=== PATIENT | male | born 1940 | race Two or more races ===

== ENCOUNTER 2018-04-27 12:09 | Emergency (ER) | payer OTHER ==
[~2018-04-27] VITALS: Ht 175.3 cm; Wt 54.4 kg
[2018-04-27] MEDS ORDERED: SODIUM CHLORIDE 0.9% 500 ML IVB ONE (12:17)
[2018-04-27 13:12] LABS: Basophils # (auto) 0 uL; Basophils % (auto) 0.5 % (0.0-2.0); Eosinophils # (auto) 0 uL; Lymphocytes # (auto) 0.6 uL
[2018-04-27 13:14] LABS: Eosinophils % (auto) 0.2 % (0.0-7.0); Hematocrit 46.1 % (41.0-53.0); Hemoglobin 16.2 g/dL (13.5-17.5); Lymphocytes % (auto) 8.3 % (10.0-50.0); Mean Corpuscular Hgb Conc. 35.2 g/dL (32.0-36.0); Mean Corpuscular Volume 102.1 fL (80.0-100.0); Monocytes # (auto) 0.6 uL; Nucleated Red Blood Cells % 0.1 %; Platelet Count (auto) 250 10^3/uL (140-450); Red Blood Cells 4.51 10^6/uL (4.5-5.90); Red Cell Distribution Width 13.7 % (11.8-14.3); White Blood Cell 7.3 10^3/uL (4.4-10.8)
[2018-04-27 13:23] LABS: Partial Thromboplastin Time 29.5 sec (23.78-33.04); Prothrombin Time 10.7 sec (9.27-12.13)
[2018-04-27 13:35] LABS: Alanine Aminotransferase 31 U/L (16-61); Albumin 3.7 g/dL (3.4-5.0); Alkaline Phosphatase 72 U/L (45-117); Anion Gap 10 (5-15); Aspartate Aminotransferase 29 U/L (15-37); BUN/Creatinine Ratio 8.8; Bilirubin, Total 1.2 mg/dL (0.2-1.0); Blood Alcohol < 3.0 mg/dL (0-5); Blood Urea Nitrogen 16 mg/dL (7-18); Calcium 8.9 mg/dL (8.5-10.1); Carbon Dioxide 24 mmol/L (21-32); Chloride 100 mmol/L (98-107); GFR African American 47 mL/min; GFR Non-African American 39 mL/min; Glucose 145 mg/dL (74-106); Magnesium 2.2 mg/dL (1.6-2.6); Potassium 3.7 mmol/L (3.5-5.1); Sodium 134 mmol/L (136-145); Total Protein 8.2 g/dL (6.4-8.2)
[2018-04-27 18:54] LABS: Urine Bacteria NONE SEEN /hpf (None Seen); Urine Blood 1+ /uL (Negative); Urine Mucus MANY (None Seen); Urine Specific Gravity 1.036 (1.001-1.035); Urine WBC 8 /hpf (0 - 3)
[2018-04-27 19:26] LABS: Amphetamine Screen, Urine NEGATIVE (NEGATIVE); Barbiturate Scree,Urine NEGATIVE (NEGATIVE); Benzodiazephine Screen, Urine NEGATIVE (NEGATIVE); Cannabinoid Screen, Urine NEGATIVE (NEGATIVE); Cocaine Screen, Urine NEGATIVE (NEGATIVE); Opiate Scree,Urine POSITIVE (NEGATIVE); Phencyclidine Screen, Urine NEGATIVE (NEGATIVE)
[2018-04-27 19:48] VITALS: BP 148/96
== END 2018-04-27 20:51 | disposition home or self-care (01) ==
LOC: ER 12:09
DX: N39.0 Urinary tract infection, site not specified (principal); R11.10 Vomiting, unspecified; E78.5 Hyperlipidemia, unspecified
CPT/HCPCS: 36415; 70450; 71045; 80053; 80307; 80320; 81001; 82140; 83735; 84484; 85025; 85610; 85730; 93005; 94761; 96360; 99285; J7030

== ENCOUNTER 2023-07-16 11:10 | Emergency (ER) | payer OTHER ==
[2023-07-16] MEDS ORDERED: IBUPROFEN 400 MG TAB PO ONE (15:45)
[2023-07-16 17:41] VITALS: BP 120/58; PULSE 65; RESP 18; TEMP 98.1; O2SAT 96
== END 2023-07-16 17:46 | disposition home or self-care (01) ==
LOC: EDBD 11:10 → ER 11:10
DX: M25.511 Pain in right shoulder (principal); E78.5 Hyperlipidemia, unspecified; W18.39XA Other fall on same level, initial encounter; Y93.89 Activity, other specified; Y92.89 Other specified places as the place of occurrence of the external cause; Y99.8 Other external cause status
CPT/HCPCS: 73060

== ENCOUNTER 2024-07-20 13:58 | Inpatient (IN) | payer OTHER ==
[~2024-07-20] VITALS: Ht 167.6 cm; Wt 67.1 kg
[2024-07-20 14:10] VITALS: PULSE 70; RESP 14; O2SAT 99
--- NOTE | 2024-07-20 14:18 | ED.PDOC ---
Altered Mental Status HPI Comments 84-year-old male brought in by EMS presents with a chief complaint of generalized weakness and ALOC s/p dialysis and fall this morning. Per EMS, patient had a witnessed fall this morning prior to dialysis. Patient is only A/O to his name at this time and is lethargic. Patient denies any active pain, nausea, vomiting, or diarrhea. Patient is poor historian at this time. Unknown if patient lost consciousness prior to fall. No other symptoms or modifying factors present at this time. Chief Complaint: ALOC Time Seen by MD: 14:12 Reviewed Notes: Medications, Allergies Allergies: Coded Allergies: NO KNOWN ALLERGIES (Unverified , 04/27/18) Information Source: Emergency Med Personnel Mode of Arrival: EMS Severity: Moderate Timing: Hours Duration: Since onset Prehospital treatment: None Quality: Decreased Alertness, Change in Behavior Past Medical History PAST MEDICAL HISTORY: Cancer, High Lipids Surgical History: Denies all surgeries Family History Family History: Reviewed,noncontributory to illness, Unknown Social History Smoker: Non-Smoker Alcohol: Occasionally Drugs: Denies Drug Use Lives In: Home Constitutional: reports: weakness; denies: chills, diaphoresis, fatigue, fever, malaise, sweats, others EENTM: denies: blurred vision, double vision, ear bleeding, ear discharge, ear drainage, ear pain, ear ringing, eye pain, eye redness, hearing loss, mouth pain, mouth swelling, nasal discharge, nose bleeding, nose congestion, nose pain, photophobia, tearing, throat pain, throat swelling, voice changes, others Respiratory: denies: cough, hemoptysis, orthopnea, SOB at rest, shortness of breath, SOB with excertion, stridor, wheezing, others Cardiovascular: denies: chest pain, dizzy spells, diaphoresis, Dyspnea on exertion, edema, irregular heart beat, left arm pain, lightheadedness, palpitations, PND, syncope, others Gastrointestinal: denies: abdomen distended, abdominal pain, blood streaked bowels, constipated, diarrhea, dysphagia, difficulty swallowing, hematemesis, melena, nausea, poor appetite, poor fluid intake, rectal bleeding, rectal pain, vomiting, others Genitourinary: denies: burning, dysuria, flank pain, frequency, hematuria, incontinence, penile discharge, penile sore, pain, testicle pain, testicle swelling, urgency, others Neurological: denies: dizziness, fainting, headache, left sided numbness, left sided weakness, numbness, paresthesia, pre-existing deficit, right sided numbness, right sided weakness, seizure, speech problems, tingling, tremors, weakness, others Musculoskeletal: denies: back pain, gout, joint pain, joint swelling, muscle pain, muscle stiffness, neck pain, others Integumetry: denies: bruises, change in color, change in hair/nails, dryness, laceration, lesions, lumps, rash, wounds, others Allergic/Immunocompromised: denies: Difficulty Healing, Frequent Infections, H ryne, Itching, others Hematologic/Lymphatic: denies: anemia, blood clots, easy bleeding, easy bruising, swollen glands, others Endocrine: denies: excessive hunger, excessive sweating, excessive thirst, excessive urination, flushing, intolerance to cold, intolerance to heat, unexplained weight gain, unexplained weight loss, others Psychiatric: denies: anxiety, bipolar disorder, depression, hopeless, panic disorder, schizophrenia, sleepless, suicidal, others Unable to Obtain due to: Altered Mental Status All Other Systems: Reviewed and Negative Physical Exam General Appearance: No Apparent Distress, Thin HEENT: Normal ENT Inspection, Pharynx Normal, TMs Normal Neck: Full Range of Motion, Non-Tender, Normal, Normal Inspection Respiratory: Chest Non-Tender, Lungs Clear, No Accessory Muscle Use, No Respiratory Distress, Normal Breath Sounds Cardiovascular: No Edema, No JVD, No Murmur, No Gallop, Normal Peripheral Pulses, Regular Rate/Rhythm Breast Exam: Deferred Gastrointestinal: No Organomegaly, Non Tender, No Pulsatile Mass, Normal Bowel Sounds, Soft Genitalia: Deferred Pelvic: Deferred Rectal: Deferred Extremities: No calf tenderness, Normal capillary refill, Normal inspection, Normal range of motion, Non-tender, No pedal edema Musculoskeletal : Apperance: Normal Neurologic: Alert, sap hana architect II-XII nml as Tested, No Motor Deficits, Normal Affect, Normal Mood, No Sensory Deficits Cerebellar Function: Normal Reflexes: Normal Skin: Dry, Normal Color, Warm Lymphatic: No Adenopathy Was a procedure done? Was a procedure done?: No Differential Diagnosis (ALOC) Differential Diagnosis: Dehydration, Hypoglycemia, CVA, Mass Lesion X-Ray, Labs, Meds, VS Vital Signs Date Time Temp Pulse Resp B/P (MAP) Pulse Ox O2 Delivery O2 Flow Rate FiO2 07/20/24 14:00 97.6 69 16 108/67 (81) 92 Lab Test 07/20/24 14:38 Range/Units White Blood Count 6.1 4.4-10.8 10^3/uL Red Blood Count 3.30 L 4.5-5.90 10^6/uL Hemoglobin 10.8 L 13.5-17.5 g/dL Hematocrit 30.9 L 41.0-53.0 % Mean Corpuscular Volume 93.6 80.0-100.0 fL Mean Corpuscular Hemoglobin 32.8 H 28.0-32.0 pg Mean Corpuscular Hemoglobin Concent 35.0 32.0-36.0 g/dL Red Cell Distribution Width 15.7 H 11.8-14.3 % Platelet Count 322 140-450 10^3/uL Mean Platelet Volume 6.2 L 6.9-10.8 fL Neutrophils (%) (Auto) 71.0 37.0-80.0 % Lymphocytes (%) (Auto) 16.7 10.0-50.0 % Monocytes (%) (Auto) 10.6 0.0-12.0 % Eosinophils (%) (Auto) 1.1 0.0-7.0 % Basophils (%) (Auto) 0.6 0.0-2.0 % Neutrophils # (Auto) 4.4 1.6-8.6 10 ^3/uL Lymphocytes # (Auto) 1.0 0.4-5.4 10 ^3/uL Monocytes # (Auto) 0.6 0-1.3 10 ^3/uL Eosinophils # (Auto) 0.1 0-0.8 10 ^3/uL Basophils # (Auto) 0 0-0.2 10 ^3/uL Nucleated Red Blood Cells 0.2 % Sodium Level Pending Potassium Level Pending Chloride Level Pending Carbon Dioxide Level Pending Anion Gap Pending Blood Urea Nitrogen Pending Creatinine Pending Glomerular Filtration Rate Calc Pending BUN/Creatinine Ratio Pending Serum Glucose Pending Calcium Level Pending Troponin I High Sensitivity Pending Time of 1ST Reevaluation: 14:42 Reevaluation 1ST: Unchanged Patient Education/Counseling: Diagnosis, Treatment, Prognosis Family Education/Counseling: No Family Present Departure 1 Departure Time of Disposition: 15:12 (Patient presenting with altered mental status. CT scan of my evaluation was benign. CBC and BNP were benign. Patient still altered found to have a right lower lobe pneumonia we will cover patient with antibiotics empirically and admit patient for further workup) Impression: Primary Impression: Right lower lobe pneumonia Qualified Codes: J18.9 - Pneumonia, unspecified organism Additional Impression: Altered mental status Qualified Codes: R41.0 - Disorientation, unspecified Disposition: 09 ADMITTED INPATIENT Admit to: Med Surg Condition: Serious Critical Care Note Critical Care Time?: Yes Critical care comment: Altered mental status Authorized and Performed by: Peterson Alcantar MD Total critical care time: Approximately 38 minutes Due to a high probability of clinically significant, life threatening deterioration, the patient required my highest level of preparedness to intervene emergently and I personally spent this critical care time directly and personally managing the patient. This critical care time included obtaining a history; examining the patient; pulse oximetry; ordering and review of studies; arranging urgent treatment with development of a management plan; evaluation of patient's response to treatment; frequent reassessment; and, discussions with other providers. This critical care time was performed to assess and manage the high probability of imminent, life-threatening deterioration that could result in multi-organ failure. It was exclusive of separately billable procedures and treating other patients and teaching time. Please see my other sections and the rest of the note for further information on patient assessment and treatment. Stability Stability form required: No I personally scribed for PETERSON ALCANTAR MD ([email or web address]) on 07/20/24 at 14:18. Electronically submitted by Saran Humphrey ([email or web address]). PETERSON ALCANTAR MD Jul 20, 2024 14:18
--- NOTE | 2024-07-20 14:48 | DVH ---
EXAM: CT HEAD WITHOUT CONTRAST HISTORY: fall, ams COMPARISON: None TECHNIQUE: Axial images of the head were obtained and reformatted in coronal and sagittal planes. All CT scans at this medical facility are performed using dose modulation techniques as appropriate t o a performed exam including the following: Automated exposure control was utilized; adjustment of th e MA and/or KV according to patient size; and use of iterative reconstruction technique. CT Dose: CTDI volume is 53.22 mGy. Dose-length product is 959.65 mGy*cm FINDINGS: There is age concordant generalized parenchymal atrophy. There are patchy hypodense areas in the supr atentorial white matter compatible with chronic microvascular ischemic changes. There is no evidence of acute intracranial hemorrhage, mass, mass effect midline shift. There is no hydrocephalus or extra -axial fluid collection. Berger-white matter differentiation is maintained.. There is partial opacification of the right mastoid air cells. The paranasal sinuses are clear. The calvarium is intact.. IMPRESSION: 1. No acute intracranial process. HS:Y
--- NOTE | 2024-07-20 14:52 | DVH ---
CHEST RADIOGRAPH Indication: fall, ams Technique: Single frontal view of the chest was obtained Comparison: None FINDINGS: Lines and Tubes: Right tunneled hemodialysis catheter. Lungs: Right lower lobe opacity. Pleura: Moderate right pleural effusion. No pneumothorax. Cardiomediastinal contours: Unremarkable Bones: No acute osseous abnormality. IMPRESSION: Moderate right pleural effusion. Right lower lobe opacity.
[2024-07-20 15:04] LABS: Basophils # (auto) 0 10 ^3/uL (0-0.2); Basophils % (auto) 0.6 % (0.0-2.0); Eosinophils # (auto) 0.1 10 ^3/uL (0-0.8); Eosinophils % (auto) 1.1 % (0.0-7.0); Hematocrit 30.9 % (41.0-53.0); Hemoglobin 10.8 g/dL (13.5-17.5); Lymphocytes % (auto) 16.7 % (10.0-50.0); Mean Corpuscular Hemoglobin 32.8 pg (28.0-32.0); Mean Corpuscular Volume 93.6 fL (80.0-100.0); Monocytes # (auto) 0.6 10 ^3/uL (0-1.3); Monocytes % (auto) 10.6 % (0.0-12.0); Neutrophils # (auto) 4.4 10 ^3/uL (1.6-8.6); Nucleated Red Blood Cells % 0.2 %; Platelet Count (auto) 322 10^3/uL (140-450); Red Cell Distribution Width 15.7 % (11.8-14.3); White Blood Cell 6.1 10^3/uL (4.4-10.8)
[2024-07-20 15:10] LABS: Chloride 98 mmol/L (98-107); Potassium 3.8 mmol/L (3.5-5.1); Sodium 137 mmol/L (136-145)
[2024-07-20 15:11] LABS: Anion Gap 8 (5-15); Carbon Dioxide 31 mmol/L (20-31)
[2024-07-20 15:17] LABS: BUN/Creatinine Ratio 3.2 (10.0-20.0); Blood Urea Nitrogen 15 mg/dL (9-23); Glucose 70 mg/dL (74-106)
[2024-07-20] MEDS: AZITHROMYCIN 250 MG TAB PO ONE (15:43)
[2024-07-20] MEDS: CEFEPIME 2GM/50ML NS 50 ML IV ONE (15:46)
[2024-07-20] MEDS ORDERED: MAALOX PLUS or MAALOX 30 ML PO PRN (16:45)
[2024-07-20] MEDS ORDERED: DEXTROSE (50%) 50ML SYRG IV PRN (16:45)
[2024-07-20] MEDS ORDERED: ACETAMINOPHEN 325 MG TAB PO PRN (16:45)
[2024-07-20] MEDS ORDERED: HYDROcodone-ACET 5/325MG TAB PO PRN (16:45)
[2024-07-20] MEDS ORDERED: MORPHINE SULFATE INJ 2 MG/ml SYRG IV PRN (16:45)
[2024-07-20] MEDS ORDERED: DOCUSATE SOD 100 MG CAP PO PRN (16:45)
[2024-07-20] MEDS ORDERED: ONDANSETRON HCL 4 MG/2 ML VIAL IV PRN (16:45)
--- NOTE | 2024-07-20 17:16 | DVHHP2 ---
History of Present Illness Reason for Visit: Weakness History of Present Illness 84 yo with ESRD and HTN came to the ed for complaints shortness of breath general weakness and suspected syncopal episode patient with esrd HD completed 3 times per week T S patient after hd was weak not feeling well on ed evaluation showed signs of effusion and pna with a recommendation of admission and further management Cardiovascular: HTN Pulmonary: Pneumonia Renal/: Chronic renal insuff, Chronic renal failure Review of Systems Constitutional: Yes: Weakness; No: Fever, Chills, Sweats, Malaise, Other Eyes: No: Pain, Vision change, Conjunctivae inflammation, Eyelid inflammation, Other, Redness ENT: No: Ear pain, Ear discharge, Nose pain, Nose discharge, Nose congestion, Mouth pain, Mouth swelling, Throat pain, Throat swelling, Other Respiratory: Cough, Shortness of breath; No: Dry, SOB with excertion, Wheezing, Hemoptysis, Pleuritic Pain, Sputum, Wheezing, Other Cardiovascular: No: Chest Pain, Palpitations, Orthopnea, Paroxysmal Noc. Dyspnea, Edema, Lt Headedness, Other Gastrointestinal: No: Nausea, Vomiting, Abdominal Pain, Diarrhea, Constipation, Melena, Hematochezia, Other Genitourinary: No Dysuria, No Frequency, No Incontinence, No Hematuria, No Retention, No Other Musculoskeletal: No: other, neck pain, shoulder pain, arm pain, back pain, hand pain, leg pain, foot pain Skin: No: Rash, Lesions, Jaundice, Bruising, Other Neurological: No: Weakness, Numbness, Incoordination, Change in speech, Confusion, Seizures, Other Allergies: Coded Allergies: NO KNOWN ALLERGIES (Unverified , 04/27/18) Medications Current Medications Medications Dose Ordered Sig/Zeferino Route Start Time Stop Time Status Last Admin Dose Admin Cefepime HCl 50 ml @ 12.5 mls/hr DAILY@1600 IV 07/21/24 16:00 Azithromycin 500 mg DAILY PO 07/21/24 10:00 UNV Diagnostic Test (Pha) 1 strip IQ4HR 07/20/24 20:00 UNV Insulin Human Regular IQ4HR SC 07/20/24 20:00 UNV Dextrose 50 ml UD PRN IV 07/20/24 16:45 UNV Al Hydrox/Mg Hydrox/Simethicone 30 ml Q6HP PRN PO 07/20/24 16:45 UNV Docusate Sodium 100 mg BIDPRN PRN PO 07/20/24 16:45 UNV Acetaminophen 650 mg Q6HP PRN PO 07/20/24 16:45 Acetaminophen/ Hydrocodone Bitart 1 tab Q4HP PRN PO 07/20/24 16:45 Ondansetron HCl 4 mg Q4HP PRN IV 07/20/24 16:45 UNV Morphine Sulfate 2 mg Q4HPRN PRN IV 07/20/24 16:45 UNV Exam Vital Signs Vital Signs Date Time Temp Pulse Resp B/P (MAP) Pulse Ox O2 Delivery O2 Flow Rate FiO2 07/20/24 16:00 72 16 14 (68) 100 07/20/24 14:10 Nasal Cannula* 2 28 07/20/24 14:10 98.7 98.7 General Appearance: Alert, Oriented X3 HEENT: Atraumatic, PERRLA Respiratory: Clear to auscultation (left sided congestion ), Normal air movement Cardiovascular: Regular rate, Normal S1, Normal S2 Abdominal: Normal bowel sounds Extremities: No clubbing, No cyanosis Skin: No rashes, No breakdown Neuro: Normal gait, Normal speech Psych/Mental Status: Mood NL Labs/Xrays Labs Test 07/20/24 15:34 07/20/24 14:38 Range/Units Troponin I High Sensitivity 15 </=54 ng/L White Blood Count 6.1 4.4-10.8 10^3/uL Red Blood Count 3.30 L 4.5-5.90 10^6/uL Hemoglobin 10.8 L 13.5-17.5 g/dL Hematocrit 30.9 L 41.0-53.0 % Mean Corpuscular Volume 93.6 80.0-100.0 fL Mean Corpuscular Hemoglobin 32.8 H 28.0-32.0 pg Mean Corpuscular Hemoglobin Concent 35.0 32.0-36.0 g/dL Red Cell Distribution Width 15.7 H 11.8-14.3 % Platelet Count 322 140-450 10^3/uL Mean Platelet Volume 6.2 L 6.9-10.8 fL Neutrophils (%) (Auto) 71.0 37.0-80.0 % Lymphocytes (%) (Auto) 16.7 10.0-50.0 % Monocytes (%) (Auto) 10.6 0.0-12.0 % Eosinophils (%) (Auto) 1.1 0.0-7.0 % Basophils (%) (Auto) 0.6 0.0-2.0 % Neutrophils # (Auto) 4.4 1.6-8.6 10 ^3/uL Lymphocytes # (Auto) 1.0 0.4-5.4 10 ^3/uL Monocytes # (Auto) 0.6 0-1.3 10 ^3/uL Eosinophils # (Auto) 0.1 0-0.8 10 ^3/uL Basophils # (Auto) 0 0-0.2 10 ^3/uL Nucleated Red Blood Cells 0.2 % Sodium Level 137 136-145 mmol/L Potassium Level 3.8 3.5-5.1 mmol/L Chloride Level 98 98-107 mmol/L Carbon Dioxide Level 31 20-31 mmol/L Anion Gap 8 5-15 Blood Urea Nitrogen 15 9-23 mg/dL Creatinine 4.64 H 0.700-1.30 mg/dL Glomerular Filtration Rate Calc 12 >90 mL/min BUN/Creatinine Ratio 3.2 L 10.0-20.0 Serum Glucose 70 L 74-106 mg/dL Calcium Level 9.0 8.7-10.4 mg/dL Assessment/Plan Assessment/Plan Admit Med/Surge Pneumonia Shortness of Breath Moderate Pleural Effusion ESRD T Th S HD schedule Suspected fluid overload Possible need for Chest Tube Pulmonary Evaluation Renal for HD management IV abx for pna cefepime PRN Breathing Treatments c/w home meds once confirmed Plan discussed with: Patient My Orders Orders - AGUILA HERNANDEZ MD Procedure Category Date Status Time Azithromycin Tablet PHA 07/21/24 Logged (Zithromax Tablet) 10:00 *Dr. [facility] CONS 07/20/24 Transmitted -[place] 16:37 *Consult CONS 07/20/24 Transmitted / 16:37 Glucose Blood PHA 07/20/24 Logged (Accu-Chek Comfort 20:00 Insulin R (Human) PHA 07/20/24 Logged (Insulin R) 20:00 Dextrose 50% Syringe PHA 07/20/24 Logged 16:45 Admit ADMIT 07/20/24 Transmitted 16:37 Code Status CODE 07/20/24 Transmitted 16:37 Vital Signs YRIS 07/20/24 In Process 16:37 Review Orders With [facility] 07/20/24 In Process Adm. 16:37 Consistent DIET 07/20/24 Transmitted Carb(Ccho)Diabetes Dinner Alum & Mag PHA 07/20/24 Logged Hydrox-Simethicone 16:45 Docusate Sodium PHA 07/20/24 Logged Capsule (Colace 16:45 Acetaminophen Tablet PHA 07/20/24 In Process (Tylenol Tablet) 16:45 Notify Md Of Changes [facility] 07/20/24 In Process From Base 16:37 Advance Directive [facility] 07/20/24 In Process 16:37 Basic Metabolic Panel LAB 07/21/24 Verified 04:00 Complete Blood Count LAB 07/21/24 Verified 04:00 Patient Condition ORDERS 07/20/24 Transmitted 16:37 Allergies [facility] 07/20/24 In Process 16:37 Hydrocodone-Acet PHA 07/20/24 In Process 5/325mg Tab ([place] 16:45 Ondansetron Hcl PHA 07/20/24 Logged (Zofran) 16:45 Morphine Sulfate [facility] 07/20/24 Logged Injection 16:45 Notify Md Of Changes [facility] 07/20/24 In Process From Base 16:37 Oxygen By Nasal RT 07/20/24 Transmitted Cannula 16:37 Cefepime 1gm/ 50ml PHA 07/21/24 In Process (Maxipime 1gm/50ml) 16:00 Problem List: (1) Abnormal pleural fluid (2) Fall with no significant injury (3) Altered mental status (4) Right lower lobe pneumonia Date of Service: Jul 20, 2024 Billing Provider: AGUILA HERNANDEZ MD Common Visit Codes: 66487-HIMXGRB INP/OBS CARE (HIGH) AGUILA HERNANDEZ MD Jul 20, 2024 17:16
[2024-07-20] MEDS ORDERED: IPRATROPIUM BROM 0.5 MG/2.5ML INH SOL NEB PRN ×2 (17:30)
[2024-07-20] MEDS ORDERED: ALBUTEROL SULF 2.5 MG/0.5ML(0.5%) NEB SOLN NEB PRN ×2 (17:30)
[2024-07-20 17:47] VITALS: O2SAT 97
--- NOTE | 2024-07-20 18:23 | DVHINCON2 ---
Date of service: Jul 20, [address] Padilla Reason for Consultation Pleural effusion, Acute hypoxic respiratory failure History of Present Illness 84-year-old man history of ESRD on hemodialysis, hypertension who presented with shortness of breath and generalized weakness. Patient states he has been inherent with hemodialysis. He was feeling weak. He was not feeling like himself. He had a chest x-ray performed that demonstrated a moderate right pleural effusion and right lower lobe consolidation. Pulmonary consultation is called for evaluation of pleural effusion and possible pneumonia, acute hypoxic respiratory failure. Review of systems: 14 point review of systems is negative unless otherwise noted above. Past medical history: Cancer, hyperlipidemia , obesity with a BMI of 32.2 Surgical history: Right tunneled hemodialysis catheter. Medications: Reviewed Allergies: No known drug allergies. Family history: No family history of premature CAD. No family history of lung disease. Social history: Nonsmoker. Social alcohol use. No illicit drug use. Lives at home. Allergies: Coded Allergies: NO KNOWN ALLERGIES (Unverified , 04/27/18) Current Medications Current Medications Medications (Trade) Dose Ordered Sig/Zeferino Route PRN Reason Start Time Stop Time Status Last Admin Cefepime HCl 50 ml @ 12.5 mls/hr DAILY@1600 IV 07/21/24 16:00 Azithromycin (Zithromax Tablet) 500 mg DAILY PO 07/21/24 10:00 Diagnostic Test (Pha) (Accu-Chek Comfort Curve T) 1 strip IQ4HR 07/20/24 20:00 Insulin Human Regular (InsuLIN R) IQ4HR SC 07/20/24 20:00 Dextrose 50 ml UD PRN IV Blood Sugar LESS THAN 60 07/20/24 16:45 Al Hydrox/Mg Hydrox/Simethicone (Maalox Plus) 30 ml Q6HP PRN PO FOR STOMACH DISTRESS 07/20/24 16:45 Docusate Sodium (Colace Capsule) 100 mg BIDPRN PRN PO FOR CONSTIPATION 07/20/24 16:45 Acetaminophen (Tylenol Tablet) 650 mg Q6HP PRN PO PAIN SCALE 1-3 OR TEMP>100.4 07/20/24 16:45 Acetaminophen/ Hydrocodone Bitart ([place] 5/325MG Tab) 1 tab Q4HP PRN PO MODERATE PAIN (4-6 PAIN SCALE) 07/20/24 16:45 Ondansetron HCl (Zofran) 4 mg Q4HP PRN IV NAUSEA / VOMITING 07/20/24 16:45 Morphine Sulfate 2 mg Q4HPRN PRN IV SEVERE PAIN (7-10 PAIN SCALE) 07/20/24 16:45 Albuterol (Ventolin Medneb) 2.5 mg Q4HWA PRN NEB SHORTNESS OF BREATH 07/20/24 17:30 07/20/24 17:36 DC Ipratropium [place] (Atrovent Medneb) 0.5 mg Q4HWA PRN NEB SHORTNESS OF BREATH 07/20/24 17:30 07/20/24 17:36 DC Albuterol (Ventolin Medneb) 2.5 mg Q4HPRN PRN NEB SHORTNESS OF BREATH 07/20/24 17:30 Ipratropium [place] (Atrovent Medneb) 0.5 mg Q4HPRN PRN NEB SHORTNESS OF BREATH 07/20/24 17:30 Vital Signs Vital Signs Date Time Temp Pulse Resp B/P (MAP) Pulse Ox O2 Delivery O2 Flow Rate FiO2 07/20/24 18:00 79 14 131/59 (83) 97 07/20/24 17:47 Nasal Cannula 2.0 07/20/24 17:47 28 07/20/24 14:10 98.7 98.7 Physical Exam Gen.: Patient lying in bed in no apparent distress. On supplemental oxygen. Head: Normocephalic, atraumatic Eyes: EOMI/PERRLA. Ears: Normal hearing. Normal anatomy. Neck/trachea: Trachea midline, supple. Nose: Normal external anatomy. Mouth: Moist mucous membranes. Chest: Right subclavian tunneled catheter in place. Decreased air entry bilaterally. No wheezing or rhonchi. Dullness to percussion in the mid to lower right lung field. Cardio vascular: Positive S1, positive S2. Regular rate and rhythm. Abdomen: Positive bowel sounds in all 4 quadrants. Soft, non-tender, non- distended. : Deferred. Rectal: Deferred Skin: Warm, dry. Extremities: 2+ radial pulses bilaterally. No lower extremity edema. Neuro: Awake, alert, oriented x3. No gross motor or sensory deficits. Cranial nerves II through XII intact. Gait not assessed. Labs/Diagnostic Data Labs Test 07/20/24 15:34 07/20/24 14:38 Range/Units Troponin I High Sensitivity 15 </=54 ng/L White Blood Count 6.1 4.4-10.8 10^3/uL Red Blood Count 3.30 L 4.5-5.90 10^6/uL Hemoglobin 10.8 L 13.5-17.5 g/dL Hematocrit 30.9 L 41.0-53.0 % Mean Corpuscular Volume 93.6 80.0-100.0 fL Mean Corpuscular Hemoglobin 32.8 H 28.0-32.0 pg Mean Corpuscular Hemoglobin Concent 35.0 32.0-36.0 g/dL Red Cell Distribution Width 15.7 H 11.8-14.3 % Platelet Count 322 140-450 10^3/uL Mean Platelet Volume 6.2 L 6.9-10.8 fL Neutrophils (%) (Auto) 71.0 37.0-80.0 % Lymphocytes (%) (Auto) 16.7 10.0-50.0 % Monocytes (%) (Auto) 10.6 0.0-12.0 % Eosinophils (%) (Auto) 1.1 0.0-7.0 % Basophils (%) (Auto) 0.6 0.0-2.0 % Neutrophils # (Auto) 4.4 1.6-8.6 10 ^3/uL Lymphocytes # (Auto) 1.0 0.4-5.4 10 ^3/uL Monocytes # (Auto) 0.6 0-1.3 10 ^3/uL Eosinophils # (Auto) 0.1 0-0.8 10 ^3/uL Basophils # (Auto) 0 0-0.2 10 ^3/uL Nucleated Red Blood Cells 0.2 % Sodium Level 137 136-145 mmol/L Potassium Level 3.8 3.5-5.1 mmol/L Chloride Level 98 98-107 mmol/L Carbon Dioxide Level 31 20-31 mmol/L Anion Gap 8 5-15 Blood Urea Nitrogen 15 9-23 mg/dL Creatinine 4.64 H 0.700-1.30 mg/dL Glomerular Filtration Rate Calc 12 >90 mL/min BUN/Creatinine Ratio 3.2 L 10.0-20.0 Serum Glucose 70 L 74-106 mg/dL Calcium Level 9.0 8.7-10.4 mg/dL Assessment Impression: Acute hypoxic respiratory failure Right lower lobe pneumonia, likely Gram-negative Pleural effusion Atelectasis Status post fall with no significant injury Obesity with a BMI of 32.2 End-stage renal disease on hemodialysis Plan: Chest x-ray imaging report reviewed. Possible right pleural effusion. Pulmonary edema. Atelectasis, compressive. Obtain ultrasound for evaluation of right pleural effusion. To see if amenable for thoracentesis. Supplemental oxygen 2 liters/minute via nasal cannula. Keep O2 saturation above 92%. Bronchodilators PRN Antibiotics , cefepime Send sputum for Gram stain and culture if able to produce. ESRD, on hemodialysis Hemodialysis per nephrology Monitor renal function Monitor electrolytes. Supplement as necessary Monitor ins and outs Accu-Cheks, insulin sliding scale DVT prophylaxis Prognosis: Guarded given multiple comorbidities. Rest of plan per hospitalist and other consultants. Thank you Dr. Padilla for allowing me to participate in this patient's care. Further recommendations will depend on patient's clinical course. Please do not hesitate to contact me if you have any questions or concerns. This medical document was created using an electronic medical record system with [employer] dictation system. Although this document has been carefully reviewed, there may still be some phonetic and typographical errors. These areas are purely typographical due to imperfections of the software programs, and do not reflect any compromise in the patient's medical care. Plan discussed with: Patient, Other (CIARRA Segal, , ) ROD LOPEZ MD Jul 20, 2024 18:23
--- NOTE | 2024-07-20 18:47 | DVH ---
Bilateral Chest Sonogram Clinical history: Evaluation for amount of right pleural effusion for thora Technique: Limited sonographic evaluation of the right and left chest was performed. Findings/Impression: Moderate right pleural effusion.
[2024-07-20 19:45] VITALS: BP 131/59; PULSE 79; RESP 16; TEMP 98.7; O2SAT 97
[2024-07-20 20:17] VITALS: PULSE 96; RESP 20; O2SAT 98
--- NOTE | 2024-07-20 20:25 | ECG ---
[facility] Test Date: 2024-07-20 Test Time: 14:16:23 Pat Name: SADIE BACK Department: ER Room: 0290 Gender: M Dancing Instructor: LIYA : 1940 Requested By: PETERSON DOSHI Order Number: [id number] Reading MD: Arcenio Garcia Measurements Intervals [place] Rate: 76 P: 0 CT: 0 QRS: 12 QRSD: 110 T: 206 QT: 480 QTc: 540 Interpretive Statements Atrial fibrillation Ventricular premature complex Repol abnrm suggests ischemia, anterolateral Prolonged QT interval Baseline wander in lead(s) II,III,aVF Electronically Signed On 07-23-2024 17:27:15 PST by Arcenio Garcia Please click the below link to view image of tracing.
[2024-07-20] MEDS: ACCU-CHEK COMFORT CURVE STRIP VI SCH (20:51)
[2024-07-20] MEDS: InsuLIN REG 1unit/0.01ml Soln (100units/ml) SC SCH (20:51)
[2024-07-20 22:00] VITALS: BP 138/57; PULSE 82; RESP 19; TEMP 97.6; O2SAT 92
[2024-07-20 22:16] VITALS: BP 99/66; PULSE 84; RESP 19; TEMP 97.6; O2SAT 92
[2024-07-21] VITALS (10 sets, daily range): BP systolic 107–152; BP diastolic 42–77; PULSE 65–93; RESP 16–19; TEMP 97.6–98.6; O2SAT 93–96
[2024-07-21 06:47] LABS: Basophils # (auto) 0 10 ^3/uL (0-0.2); Basophils % (auto) 0.2 % (0.0-2.0); Eosinophils # (auto) 0 10 ^3/uL (0-0.8); Eosinophils % (auto) 0.6 % (0.0-7.0); Hematocrit 31.1 % (41.0-53.0); Hemoglobin 10.6 g/dL (13.5-17.5); Lymphocytes # (auto) 0.6 10 ^3/uL (0.4-5.4); Lymphocytes % (auto) 8.1 % (10.0-50.0); Mean Corpuscular Hemoglobin 32.2 pg (28.0-32.0); Mean Corpuscular Hgb Conc. 34.2 g/dL (32.0-36.0); Mean Corpuscular Volume 94.2 fL (80.0-100.0); Monocytes # (auto) 0.6 10 ^3/uL (0-1.3); Neutrophils # (auto) 6.1 10 ^3/uL (1.6-8.6); Neutrophils % (auto) 83.1 % (37.0-80.0); Platelet Count (auto) 328 10^3/uL (140-450); Red Cell Distribution Width 15.6 % (11.8-14.3); White Blood Cell 7.4 10^3/uL (4.4-10.8)
[2024-07-21 06:55] LABS: Anion Gap 9 (5-15); Carbon Dioxide 31 mmol/L (20-31); Chloride 97 mmol/L (98-107); Potassium 3.9 mmol/L (3.5-5.1); Sodium 137 mmol/L (136-145)
[2024-07-21 06:57] LABS: Calcium 9.3 mg/dL (8.7-10.4)
[2024-07-21 07:01] LABS: BUN/Creatinine Ratio 3.8 (10.0-20.0); Blood Urea Nitrogen 23 mg/dL (9-23); Glucose 99 mg/dL (74-106)
[2024-07-21] MEDS ORDERED: AZITHROMYCIN 250 MG TAB PO SCH (10:00)
--- NOTE | 2024-07-21 12:28 | DVHINCON2 ---
Date of service: Jul 21, [address] Padilla. History of Present Illness 84-year-old patient with significant history of end-stage renal disease on hemodialysis TTS with low dialysis yesterday, hypertension presented to the hospital because of generalized weakness, shortness of breath and intermittent confusion. Patient endorses a fall without head injury and loss of consciousness he is uncertain as per patient. Patient denies any chest pain orthopnea PND denies fever chills cough or abdominal pain or nausea and vomiting or diarrhea. Evaluation in the emergency room revealed chest x-ray with right lower lobe opacity and pleural effusion. CT head negative for acute CVA. Labs consistent with end-stage renal disease status and normal kalemia. Past Medical History End-stage renal disease, hypertension Past Surgical History Hemodialysis access creation Allergies: Coded Allergies: NO KNOWN ALLERGIES (Unverified , 04/27/18) Home Meds Unable to Obtain Active Prescriptions or Reported Meds Current Medications Current Medications Medications (Trade) Dose Ordered Sig/Zeferino Route PRN Reason Start Time Stop Time Status Last Admin Cefepime HCl 50 ml @ 12.5 mls/hr DAILY@1600 IV 07/21/24 16:00 Azithromycin (Zithromax Tablet) 500 mg DAILY PO 07/21/24 10:00 07/21/24 10:51 DC Diagnostic Test (Pha) (Accu-Chek Comfort Curve T) 1 strip IQ4HR 07/20/24 20:00 07/21/24 08:00 Insulin Human Regular (InsuLIN R) IQ4HR SC 07/20/24 20:00 Dextrose 50 ml UD PRN IV Blood Sugar LESS THAN 60 07/20/24 16:45 Al Hydrox/Mg Hydrox/Simethicone (Maalox Plus) 30 ml Q6HP PRN PO FOR STOMACH DISTRESS 07/20/24 16:45 Docusate Sodium (Colace Capsule) 100 mg BIDPRN PRN PO FOR CONSTIPATION 07/20/24 16:45 Acetaminophen (Tylenol Tablet) 650 mg Q6HP PRN PO PAIN SCALE 1-3 OR TEMP>100.4 07/20/24 16:45 Acetaminophen/ Hydrocodone Bitart ([place] 5/325MG Tab) 1 tab Q4HP PRN PO MODERATE PAIN (4-6 PAIN SCALE) 07/20/24 16:45 Ondansetron HCl (Zofran) 4 mg Q4HP PRN IV NAUSEA / VOMITING 07/20/24 16:45 Morphine Sulfate 2 mg Q4HPRN PRN IV SEVERE PAIN (7-10 PAIN SCALE) 07/20/24 16:45 Albuterol (Ventolin Medneb) 2.5 mg Q4HWA PRN NEB SHORTNESS OF BREATH 07/20/24 17:30 07/20/24 17:36 DC Ipratropium [place] (Atrovent Medneb) 0.5 mg Q4HWA PRN NEB SHORTNESS OF BREATH 07/20/24 17:30 07/20/24 17:36 DC Albuterol (Ventolin Medneb) 2.5 mg Q4HPRN PRN NEB SHORTNESS OF BREATH 07/20/24 17:30 Ipratropium [place] (Atrovent Medneb) 0.5 mg Q4HPRN PRN NEB SHORTNESS OF BREATH 07/20/24 17:30 Azithromycin (Zithromax Tablet) 500 mg DAILY PO 07/22/24 10:00 Family History: Patient reports no known family medical history. Family History Patient is poor historian does not know his family history. Social History He lives with his denies smoking alcohol or drug abuse Review of Systems HEENT: Oral mucosa dry Neck no JVD Cardiovascular: Denies for chest pain denies orthopnea or PND Respiratory: Denies cough or shortness of breath Gastrointestinal: Denies for nausea vomiting Musculoskeletal: Denies myalgias Neurological: Denies focal weakness Dermatological: Denies any rash The rest of the review of systems were reviewed pertinent positives and pertinent negatives are as per HPI up to 12 points review of systems H&P Exam Vital Signs/I&O Vital Sign Date Time Temp Pulse Resp B/P (MAP) Pulse Ox O2 Delivery O2 Flow Rate FiO2 07/21/24 10:07 96 Nasal Cannula* 2 28 07/21/24 09:00 98.1 87 18 129/53 (78) 98.1 Physical Exam HEENT: No evidence of JVD, no oral ulcers. Pulmonary: Lungs are clear on auscultation bilaterally Cardiovascular S1-S2, no S3 or S4 Abdomen: Bowel sounds positive, soft no rebound tenderness Skin: No rash Neurological: Alert, oriented, no focal weakness Right chest tunneled HD line with no complication Labs/Diagnostic Data Labs/Diagnostic Data Laboratory Tests Test 07/21/24 11:45 07/21/24 07:52 07/21/24 05:50 07/21/24 04:25 Range/Units POC Glucose 85 86 110 H 70-106 mg/dl White Blood Count 7.4 4.4-10.8 10^3/uL Red Blood Count 3.30 L 4.5-5.90 10^6/uL Hemoglobin 10.6 L 13.5-17.5 g/dL Hematocrit 31.1 L 41.0-53.0 % Mean Corpuscular Volume 94.2 80.0-100.0 fL Mean Corpuscular Hemoglobin 32.2 H 28.0-32.0 pg Mean Corpuscular Hemoglobin Concent 34.2 32.0-36.0 g/dL Red Cell Distribution Width 15.6 H 11.8-14.3 % Platelet Count 328 140-450 10^3/uL Mean Platelet Volume 6.3 L 6.9-10.8 fL Neutrophils (%) (Auto) 83.1 H 37.0-80.0 % Lymphocytes (%) (Auto) 8.1 L 10.0-50.0 % Monocytes (%) (Auto) 8.0 0.0-12.0 % Eosinophils (%) (Auto) 0.6 0.0-7.0 % Basophils (%) (Auto) 0.2 0.0-2.0 % Neutrophils # (Auto) 6.1 1.6-8.6 10 ^3/uL Lymphocytes # (Auto) 0.6 0.4-5.4 10 ^3/uL Monocytes # (Auto) 0.6 0-1.3 10 ^3/uL Eosinophils # (Auto) 0 0-0.8 10 ^3/uL Basophils # (Auto) 0 0-0.2 10 ^3/uL Nucleated Red Blood Cells 0.0 % Sodium Level 137 136-145 mmol/L Potassium Level 3.9 3.5-5.1 mmol/L Chloride Level 97 L 98-107 mmol/L Carbon Dioxide Level 31 20-31 mmol/L Anion Gap 9 5-15 Blood Urea Nitrogen 23 9-23 mg/dL Creatinine 5.99 H 0.700-1.30 mg/dL Glomerular Filtration Rate Calc 9 >90 mL/min BUN/Creatinine Ratio 3.8 L 10.0-20.0 Serum Glucose 99 74-106 mg/dL Calcium Level 9.3 8.7-10.4 mg/dL Test 07/21/24 00:10 07/20/24 20:49 07/20/24 18:09 07/20/24 15:34 Range/Units POC Glucose 132 H 98 70-106 mg/dl Lactic Acid Level 0.8 0.4-2.0 mmol/L Troponin I High Sensitivity 15 </=54 ng/L Test 07/20/24 14:38 Range/Units White Blood Count 6.1 4.4-10.8 10^3/uL Red Blood Count 3.30 L 4.5-5.90 10^6/uL Hemoglobin 10.8 L 13.5-17.5 g/dL Hematocrit 30.9 L 41.0-53.0 % Mean Corpuscular Volume 93.6 80.0-100.0 fL Mean Corpuscular Hemoglobin 32.8 H 28.0-32.0 pg Mean Corpuscular Hemoglobin Concent 35.0 32.0-36.0 g/dL Red Cell Distribution Width 15.7 H 11.8-14.3 % Platelet Count 322 140-450 10^3/uL Mean Platelet Volume 6.2 L 6.9-10.8 fL Neutrophils (%) (Auto) 71.0 37.0-80.0 % Lymphocytes (%) (Auto) 16.7 10.0-50.0 % Monocytes (%) (Auto) 10.6 0.0-12.0 % Eosinophils (%) (Auto) 1.1 0.0-7.0 % Basophils (%) (Auto) 0.6 0.0-2.0 % Neutrophils # (Auto) 4.4 1.6-8.6 10 ^3/uL Lymphocytes # (Auto) 1.0 0.4-5.4 10 ^3/uL Monocytes # (Auto) 0.6 0-1.3 10 ^3/uL Eosinophils # (Auto) 0.1 0-0.8 10 ^3/uL Basophils # (Auto) 0 0-0.2 10 ^3/uL Nucleated Red Blood Cells 0.2 % Sodium Level 137 136-145 mmol/L Potassium Level 3.8 3.5-5.1 mmol/L Chloride Level 98 98-107 mmol/L Carbon Dioxide Level 31 20-31 mmol/L Anion Gap 8 5-15 Blood Urea Nitrogen 15 9-23 mg/dL Creatinine 4.64 H 0.700-1.30 mg/dL Glomerular Filtration Rate Calc 12 >90 mL/min BUN/Creatinine Ratio 3.2 L 10.0-20.0 Serum Glucose 70 L 74-106 mg/dL Calcium Level 9.0 8.7-10.4 mg/dL Troponin I High Sensitivity 15 </=54 ng/L Chest x-ray right-sided pleural effusion and right lobe opacity CT head no acute intracranial process Assessment Assessment: 1. End-stage renal disease on hemodialysis TTS 2. Concern for right lower lobe pneumonia 3. Moderate right-sided pleural effusion 4. Fall 5. Syncope 6. Anemia 7. Hypertension Recommendations: Hemodialysis TTS. Cardiac consult, 2D echo Monitored on telemetry No indication for dialysis today Jeremías for goal hemoglobin 10-11 PTOT evaluation Fluid restrict less than 1 L per day Thank you very much for allowing us to participate in the care of this patient. Plan discussed with: Patient AYAN HUGGINS MD Jul 21, 2024 12:28
[2024-07-21] MEDS ORDERED: DOCUSATE SOD 100 MG CAP PO PRN (15:30)
[2024-07-21] MEDS ORDERED: HYDROcodone-ACET 5/325MG TAB PO PRN (15:30)
[2024-07-21] MEDS ORDERED: ONDANSETRON HCL 4 MG/2 ML VIAL IV PRN (15:30)
[2024-07-21] MEDS ORDERED: MORPHINE SULFATE INJ 2 MG/ml SYRG IV PRN (15:30)
[2024-07-21] MEDS ORDERED: ACETAMINOPHEN 325 MG TAB PO PRN (15:30)
[2024-07-21] MEDS ORDERED: hydrALAZINE HCL 10 MG TAB PO PRN (15:30)
[2024-07-21] MEDS ORDERED: IPRATROPIUM BROM 0.5 MG/2.5ML INH SOL NEB PRN (15:30)
[2024-07-21] MEDS ORDERED: DEXTROSE (50%) 50ML SYRG IV PRN (15:30)
[2024-07-21] MEDS ORDERED: MAALOX PLUS or MAALOX 30 ML PO PRN (15:30)
[2024-07-21] MEDS ORDERED: ALBUTEROL SULF 2.5 MG/0.5ML(0.5%) NEB SOLN NEB PRN (15:30)
[2024-07-21] MEDS: CEFEPIME 1GM/ 50ML 50 ML IV SCH (15:49)
[2024-07-21] MEDS ORDERED: CEFEPIME 1GM/ 50ML 50 ML IV SCH (16:00)
[2024-07-21] MEDS: ACCU-CHEK COMFORT CURVE STRIP VI SCH (16:05)
[2024-07-21] MEDS: InsuLIN REG 1unit/0.01ml Soln (100units/ml) SC SCH (16:07)
--- NOTE | 2024-07-21 16:54 | DVHPNRES ---
Progress Note Date Seen: Jul 21, 2024 Resident Creating Document: SUJEYViktorADITYA HoangALLISON RESIDENT Medical Necessity Reason Pt with a Central, PICC or Fol: No Subjective Review of Systems Patient is a 84-year-old male with a past medical history of end-stage renal disease on hemodialysis Friday, , Friday, hypertension, BPH presented to the ED with a chief complaint of shortness of breath and generalized weakness. Patient reported that he started feeling short of breath since 3-4 days ago with slowly worsened and he was feeling weak and dizzy and had a fall without loss of consciousness and with no head injury. Patient denied chest pain, orthopnea, PND, fever, chills, abdominal pain, nausea, vomiting. Chest x- ray showed right-sided moderate pleural effusion, very minimal left-sided pleural effusion. Chest ultrasound showed moderate right-sided pleural effusion. Past medical history: As per HPI Past surgical history: Right tunneled hemodialysis catheter Social history: Lives with and denies smoking, alcohol, drug use Home medications: Simvastatin, finasteride, tamsulosin, sevelamer, temazepam Review of systems Patient seen and examined at the bedside. Patient is alert and oriented x 2, oriented to person and time but disoriented to place. Patient sitting in bed with oxygen support 2 liter/minute reports no shortness of breath on oxygen support but on walking to the restroom he feels slightly out of breath. Patient denies chest pain, nausea, vomiting, chills, fever, change in bowel movement. Patient's vitals at the time of examination stable. Objective vital signs Vital Sign Date Time Temp Pulse Resp B/P (MAP) Pulse Ox O2 Delivery O2 Flow Rate FiO2 07/21/24 13:00 97.6 72 18 152/64 (93) 93 97.6 07/21/24 10:07 Nasal Cannula* 2 28 medications Current Medications Medications Dose Ordered Sig/Zeferino Route Start Time Stop Time Status Last Admin Dose Admin Hydralazine HCl 10 mg Q6HP PRN PO 07/21/24 15:30 Cefepime HCl 50 ml @ 12.5 mls/hr DAILY@1600 IV 07/21/24 16:00 07/21/24 15:49 12.5 MLS/HR Diagnostic Test (Pha) 1 strip IQ4HR 07/21/24 16:00 07/21/24 16:05 1 STRIP Insulin Human Regular IQ4HR SC 07/21/24 16:00 07/21/24 16:07 2 UNITS Dextrose 50 ml UD PRN IV 07/21/24 15:30 Al Hydrox/Mg Hydrox/Simethicone 30 ml Q6HP PRN PO 07/21/24 15:30 Docusate Sodium 100 mg BIDPRN PRN PO 07/21/24 15:30 Acetaminophen 650 mg Q6HP PRN PO 07/21/24 15:30 Acetaminophen/ Hydrocodone Bitart 1 tab Q4HP PRN PO 07/21/24 15:30 Ondansetron HCl 4 mg Q4HP PRN IV 07/21/24 15:30 Morphine Sulfate 2 mg Q4HPRN PRN IV 07/21/24 15:30 Albuterol 2.5 mg Q4HPRN PRN NEB 07/21/24 15:30 Ipratropium [place] 0.5 mg Q4HPRN PRN NEB 07/21/24 15:30 Azithromycin 500 mg DAILY PO 07/22/24 10:00 Examination Physical Examination Gen - no pallor, no icterus, no cyanosis, no clubbing, no LAD, no edema . Skin - Patients skin is warm and dry.. HEENT - normocephalic, atraumatic, moist mucous membranes. Right tunneled hemodialysis catheter. Neck - full ROM, no LAD, no JVD. Pulmonary - breath sounds absent on the right lower side, vesicular breath sounds heard in the left lung and in the right upper lobe. cardiovascular - normal S1,S2 heard. no murmurs heard. peripheral pulses normal radial 2+, pedal 2+. capillary refill normal <2 secs. GI - soft abdomen without tenderness to palpation . no hepatospleenomegaly. Bowel sounds normoactive Neurological - Patient is A/O X 2 . Bilateral upper extremity strength 4/5, bilateral lower extremity strength 4/5, no facial droop, normal speech, no tremor, no sensory deficiets. laboratory and microbiology Laboratory Tests 07/21/24 05:50 Test 07/21/24 05:50 Range/Units Serum Glucose 99 74-106 mg/dL Problem List/Assessment/Plan Problem List/Assessment/Plan Assessment and plan # Acute hypoxic respiratory failure likely due to ?community-acquired pneumonia ? Pleural effusion -On oxygen at 2 liters/minute via nasal cannula -albuterol and ipratropium nebulizer p.r.n. # right pleural effusion ? Fluid overload due to ESRD ? d/t pneumonia ? Malignant - moderate right-sided pleural effusion on chest ultrasound and chest x-ray - thoracocentesis done at bedside under supervision of Dr. Cazares with removal of about 1850 mL of serosanguineous fluid - sample sent for cytology, fluid LDH, protein, food PH - chest x-ray status post thoracocentesis shows improved right pleural effusion # ?community-acquired pneumonia likely due to Gram +/-bacteria - patient on cefepime 1 g IV daily and azithromycin 500 mg p.o. daily - on oxygen support # end-stage renal disease - Serum creatinine 5.99 - patient had a right tunneled hemodialysis catheter with hemodialysis on Friday, , Friday - nephrology consulted - hemodialysis to be done tomorrow 07/22/2024 - monitor electrolytes - strict I&Os - fluid restriction 1 L per day Goals of care discussed with the patient for over 25 minutes. Patient's [id number] joint was trying to be called but did not respond. Full code Plan discussed with Dr. Arteaga Plan discussed with: Patient My Orders My Orders Orders - RON MULLEN Procedure Category Date Status Time Hydralazine Hcl PHA 07/21/24 In Process Tablet (Apresoline 15:30 Date of Service: Jul 21, 2024 Billing Provider: REBEL FAITH MD Common Visit Codes: [id number] INP/OBS CARE(HIGH) RON MULLEN RESIDENT Jul 21, 2024 16:54 REBEL FAITH MD Jul 21, 2024 22:42
--- NOTE | 2024-07-21 18:49 | DVHNC2 ---
Procedure - Ultrasound-guided thoracentesis procedure note: Physician: Dr Sommer Cazares Assisted: Jhajj Date: 07/21/24 Time: 1848 Consent: Consent was obtained from patient prior to procedure. Indication, risks, and benefits were explained at length. Procedure summary: A time out was performed and a chest x-ray was reviewed prior to procedure. The appropriate site was confirmed and marked. My hands were washed immediately prior to the procedure, I wore a surgical cap, mask with protective eyewear, sterile gown and sterile gloves throughout the procedure. The patient was prepped and draped in a sterile manner using chlorhexidine scrub after the appropriate level was percussed and confirmed by ultrasound. 1% lidocaine was used to anesthetize the skin, subcutaneous tissue, superior aspect of the rib periosteum and parietal pleura. A finder needle was then introduced over the superior aspect of the rib to locate the pleural fluid; yellow fluid was aspirated. Thoracentesis needle was then introduced through the skin incision into the pleural space using negative aspiration pressure. The thoracentesis catheter was then threaded without difficulty. 1850 mL's of yellow colored fluid were removed without difficulty. The catheter was then removed. No immediate complications were noted during the procedure. A postprocedure chest x-ray is pending at the time of this note. The pleural fluid will be sent for cultures and cytology. Estimated blood loss is less than 5 mL's. CPT: 47170 ROD CAZARES MD Jul 21, 2024 18:49
--- NOTE | 2024-07-21 18:56 | DVH ---
EXAM: XY CHEST XRAY 1 VIEW TECHNIQUE: Single frontal chest radiograph CLINICAL HISTORY: s/p right thora COMPARISON: XY CHEST PORTABLE on DOS: 07/20/24 Findings/Impression: Frontal chest radiograph demonstrates no acute osseous or superficial soft tissue abnormalities. Tunneled right sided HD catheter terminates near the superior cavoatrial junction. The trachea is midline. The cardiac silhouette and mediastinum are within normal limits. Small right pleural effusion with compressive atelectasis, improved from prior. A superimposed infec tious process is not excluded. No pneumothorax.
[2024-07-21 20:10] LABS: Body Fluid Polymorphonuclear 16 % (0-25); Body Fluid Red Blood Cells 6865 CUMM (0-2000); Body Fluid White Blood Cells 1385 CUMM (0-200)
[2024-07-21] MEDS: EPOETIN ALFA-EPBX 4,000 UNIT/ML VIAL SC ONE (21:00)
--- NOTE | 2024-07-21 21:26 | DVHINCON2 ---
Date of service: Jul 21, 2024 History of Present Illness 84-year-old man history of ESRD on hemodialysis, hypertension who presented with shortness of breath and generalized weakness. Patient states he has been inherent with hemodialysis. He was feeling weak. He was not feeling like himself. He had a chest x-ray performed that demonstrated a moderate right pleural effusion and right lower lobe consolidation. Pulmonary consultation is called for evaluation of pleural effusion and possible pneumonia, acute hypoxic respiratory failure. Review of systems: 14 point review of systems is negative unless otherwise noted above. Past medical history: Cancer, hyperlipidemia , obesity with a BMI of 32.2 Surgical history: Right tunneled hemodialysis catheter. Medications: Reviewed Allergies: No known drug allergies. Family history: No family history of premature CAD. No family history of lung disease. Social history: Nonsmoker. Social alcohol use. No illicit drug use. Lives at home. Family History: Patient reports no known family medical history. Allergies: Coded Allergies: NO KNOWN ALLERGIES (Unverified , 04/27/18) Home Meds Unable to Obtain Active Prescriptions or Reported Meds Current Medications Current Medications Medications (Trade) Dose Ordered Sig/Zeferino Route PRN Reason Start Time Stop Time Status Last Admin Cefepime HCl 50 ml @ 12.5 mls/hr DAILY@1600 IV 07/21/24 16:00 07/21/24 15:25 DC Azithromycin (Zithromax Tablet) 500 mg DAILY PO 07/21/24 10:00 07/21/24 10:51 DC Azithromycin (Zithromax Tablet) 500 mg DAILY PO 07/22/24 10:00 07/21/24 15:30 DC Hydralazine HCl (Apresoline Tablet) 10 mg Q6HP PRN PO SBP>150 07/21/24 15:30 Cefepime HCl 50 ml @ 12.5 mls/hr DAILY@1600 IV 07/21/24 16:00 07/21/24 15:49 Diagnostic Test (Pha) (Accu-Chek Comfort Curve T) 1 strip IQ4HR 07/21/24 16:00 07/21/24 20:00 Insulin Human Regular (InsuLIN R) IQ4HR SC 07/21/24 16:00 07/21/24 20:00 Dextrose 50 ml UD PRN IV Blood Sugar LESS THAN 60 07/21/24 15:30 Al Hydrox/Mg Hydrox/Simethicone (Maalox Plus) 30 ml Q6HP PRN PO FOR STOMACH DISTRESS 07/21/24 15:30 Docusate Sodium (Colace Capsule) 100 mg BIDPRN PRN PO FOR CONSTIPATION 07/21/24 15:30 Acetaminophen (Tylenol Tablet) 650 mg Q6HP PRN PO PAIN SCALE 1-3 OR TEMP>100.4 07/21/24 15:30 Acetaminophen/ Hydrocodone Bitart ([place] 5/325MG Tab) 1 tab Q4HP PRN PO MODERATE PAIN (4-6 PAIN SCALE) 07/21/24 15:30 Ondansetron HCl (Zofran) 4 mg Q4HP PRN IV NAUSEA / VOMITING 07/21/24 15:30 Morphine Sulfate 2 mg Q4HPRN PRN IV SEVERE PAIN (7-10 PAIN SCALE) 07/21/24 15:30 Albuterol (Ventolin Medneb) 2.5 mg Q4HPRN PRN NEB SHORTNESS OF BREATH 07/21/24 15:30 Ipratropium [place] (Atrovent Medneb) 0.5 mg Q4HPRN PRN NEB SHORTNESS OF BREATH 07/21/24 15:30 Azithromycin (Zithromax Tablet) 500 mg DAILY PO 07/22/24 10:00 Vital Signs Vital Signs Date Time Temp Pulse Resp B/P (MAP) Pulse Ox O2 Delivery O2 Flow Rate FiO2 07/21/24 21:17 98.2 86 18 139/63 (88) 96 98.2 07/21/24 10:07 Nasal Cannula* 2 28 Labs/Diagnostic Data Labs Test 07/21/24 18:15 07/21/24 15:52 07/21/24 05:50 07/20/24 18:09 Range/Units Body Fluid Source Pleural fluid Body Fluid pH 8.0 Body Fluid WBC (Manual) 1385 H 0-200 CUMM Body Fluid RBC (Manual) 6865 H 0-2000 CUMM Body Fluid Mononuclear Cells 84 % Body Fluid Polymorphonuclear Cells 16 0-25 % POC Glucose 133 H 70-106 mg/dl White Blood Count 7.4 4.4-10.8 10^3/uL Red Blood Count 3.30 L 4.5-5.90 10^6/uL Hemoglobin 10.6 L 13.5-17.5 g/dL Hematocrit 31.1 L 41.0-53.0 % Mean Corpuscular Volume 94.2 80.0-100.0 fL Mean Corpuscular Hemoglobin 32.2 H 28.0-32.0 pg Mean Corpuscular Hemoglobin Concent 34.2 32.0-36.0 g/dL Red Cell Distribution Width 15.6 H 11.8-14.3 % Platelet Count 328 140-450 10^3/uL Mean Platelet Volume 6.3 L 6.9-10.8 fL Neutrophils (%) (Auto) 83.1 H 37.0-80.0 % Lymphocytes (%) (Auto) 8.1 L 10.0-50.0 % Monocytes (%) (Auto) 8.0 0.0-12.0 % Eosinophils (%) (Auto) 0.6 0.0-7.0 % Basophils (%) (Auto) 0.2 0.0-2.0 % Neutrophils # (Auto) 6.1 1.6-8.6 10 ^3/uL Lymphocytes # (Auto) 0.6 0.4-5.4 10 ^3/uL Monocytes # (Auto) 0.6 0-1.3 10 ^3/uL Eosinophils # (Auto) 0 0-0.8 10 ^3/uL Basophils # (Auto) 0 0-0.2 10 ^3/uL Nucleated Red Blood Cells 0.0 % Sodium Level 137 136-145 mmol/L Potassium Level 3.9 3.5-5.1 mmol/L Chloride Level 97 L 98-107 mmol/L Carbon Dioxide Level 31 20-31 mmol/L Anion Gap 9 5-15 Blood Urea Nitrogen 23 9-23 mg/dL Creatinine 5.99 H 0.700-1.30 mg/dL Glomerular Filtration Rate Calc 9 >90 mL/min BUN/Creatinine Ratio 3.8 L 10.0-20.0 Serum Glucose 99 74-106 mg/dL Calcium Level 9.3 8.7-10.4 mg/dL Lactic Acid Level 0.8 0.4-2.0 mmol/L Test 07/20/24 15:34 Range/Units Troponin I High Sensitivity 15 </=54 ng/L Microbiology Date/Time Source Procedure Growth Status 07/20/24 17:55 Blood Blood Culture - Preliminary NO GROWTH AFTER 24 HOURS OF INCUBATION. Resulted Assessment Impression: Acute hypoxic respiratory failure Right lower lobe pneumonia, likely Gram-negative Pleural effusion Atelectasis Status post fall with no significant injury Obesity with a BMI of 32.2 End-stage renal disease on hemodialysis Plan: Chest x-ray imaging report reviewed. Possible right pleural effusion. Pulmonary edema. Atelectasis, compressive. Obtain ultrasound for evaluation of right pleural effusion. To see if amenable for thoracentesis. Supplemental oxygen 2 liters/minute via nasal cannula. Keep O2 saturation above 92%. Bronchodilators PRN Antibiotics , cefepime Send sputum for Gram stain and culture if able to produce. ESRD, on hemodialysis Hemodialysis per nephrology Monitor renal function Monitor electrolytes. Supplement as necessary Monitor ins and outs Accu-Cheks, insulin sliding scale DVT prophylaxis Prognosis: Guarded given multiple comorbidities. Rest of plan per hospitalist and other consultants. Thank you Dr. Padilla for allowing me to participate in this patient's care. Further recommendations will depend on patient's clinical course. Please do not hesitate to contact me if you have any questions or concerns. This medical document was created using an electronic medical record system with [employer] dictation system. Although this document has been carefully reviewed, there may still be some phonetic and typographical errors. These areas are purely typographical due to imperfections of the software programs, and do not reflect any compromise in the patient's medical care. ROD LOPEZ MD Jul 21, 2024 21:26
--- NOTE | 2024-07-21 22:16 | DVHPN2 ---
Progress Note - Dictate Date Seen: Jul 21, 2024 Medical Necessity Reason Pt with a Central, PICC or Fol: No Subjective Patient seen and examined at bedside On supplemental oxygen No new complaints vital signs Vital Sign Date Time Temp Pulse Resp B/P (MAP) Pulse Ox O2 Delivery O2 Flow Rate FiO2 07/21/24 21:17 98.2 86 18 139/63 (88) 96 98.2 07/21/24 20:00 Nasal Cannula* 2 28 medications Current Medications Medications Dose Ordered Sig/Zeferino Route Start Time Stop Time Status Last Admin Dose Admin Hydralazine HCl 10 mg Q6HP PRN PO 07/21/24 15:30 Cefepime HCl 50 ml @ 12.5 mls/hr DAILY@1600 IV 07/21/24 16:00 07/21/24 15:49 12.5 MLS/HR Diagnostic Test (Pha) 1 strip IQ4HR 07/21/24 16:00 07/21/24 20:00 1 STRIP Insulin Human Regular IQ4HR SC 07/21/24 16:00 07/21/24 20:00 2 UNITS Dextrose 50 ml UD PRN IV 07/21/24 15:30 Docusate Sodium 100 mg BIDPRN PRN PO 07/21/24 15:30 Acetaminophen 650 mg Q6HP PRN PO 07/21/24 15:30 Acetaminophen/ Hydrocodone Bitart 1 tab Q4HP PRN PO 07/21/24 15:30 Ondansetron HCl 4 mg Q4HP PRN IV 07/21/24 15:30 Morphine Sulfate 2 mg Q4HPRN PRN IV 07/21/24 15:30 Albuterol 2.5 mg Q4HPRN PRN NEB 07/21/24 15:30 Ipratropium [place] 0.5 mg Q4HPRN PRN NEB 07/21/24 15:30 Azithromycin 500 mg DAILY PO 07/22/24 10:00 objective Gen.: Patient lying in bed in no apparent distress. On supplemental oxygen. Head: Normocephalic, atraumatic. Eyes: EOMI/PERRLA. Ears: Normal hearing. Normal anatomy. Neck/trachea: Trachea midline, supple. Nose: Normal external anatomy. Mouth: Moist mucous membranes. Chest: Decreased air entry bilaterally. No wheezing or rhonchi. Cardiovascular: Positive S1, positive S2. Regular rate and rhythm. Abdomen: Positive bowel sounds in all 4 quadrants. Soft, non-tender, non- distended. : Deferred. Rectal: Deferred. Skin: Warm, dry. Intact. Extremities: 2+ radial pulses bilaterally. No lower extremity edema. Neuro: Awake, alert, oriented x3. No gross motor or sensory deficits. Cranial nerves II through XII intact. Gait not assessed. laboratory and microbiology Laboratory Tests 07/21/24 05:50 Test 07/21/24 05:50 Range/Units Serum Glucose 99 74-106 mg/dL Assessment/Plan Impression: Acute hypoxic respiratory failure Right lower lobe pneumonia, likely Gram-negative Pleural effusion Atelectasis Status post fall with no significant injury Obesity with a BMI of 32.2 End-stage renal disease on hemodialysis Events: On supplemental O2 at 2 LPM NC Taper O2 as tolerated Chest ultrasound demonstrated [id number] right pleural effusion. S/p right thoracentesis w/ drainage of 1850 mL from right pleural space. See separate procedure note for details. CXR post procedure pending. HD per Nephrology Monitor renal function. Monitor electrolytes. Supplement as necessary. Labs and imaging reviewed. Rest of plan as noted below. Plan: Chest x-ray imaging report reviewed. Possible right pleural effusion. Pulmonary edema. Atelectasis, compressive. Chest ultrasound demonstrated [id number] right pleural effusion. S/p right thoracentesis w/ drainage of 1850 mL from right pleural space. See separate procedure note for details. Supplemental oxygen 2 liters/minute via nasal cannula. Keep O2 saturation above 92%. Bronchodilators PRN Antibiotics , cefepime Send sputum for Gram stain and culture if able to produce. ESRD, on hemodialysis Hemodialysis per nephrology Monitor renal function Monitor electrolytes. Supplement as necessary Monitor ins and outs Accu-Cheks, insulin sliding scale DVT prophylaxis Prognosis: Guarded given multiple comorbidities. Rest of plan per hospitalist and other consultants. Thank you Dr. Padilla for allowing me to participate in this patient's care. Further recommendations will depend on patient's clinical course. Please do not hesitate to contact me if you have any questions or concerns. This medical document was created using an electronic medical record system with [employer] system. Although this document has been carefully reviewed, there may still be some phonetic and typographical errors. These areas are purely typographical due to imperfections of the software programs, and do not reflect any compromise in the patient's medical care. Plan discussed with: Patient, Other (CIARRA Martínez/Natalia) ROD LOPEZ MD Jul 21, 2024 22:16
[2024-07-22] VITALS (10 sets, daily range): BP systolic 104–142; BP diastolic 54–81; PULSE 62–89; RESP 16–19; TEMP 97.7–98.9; O2SAT 94–99
[2024-07-22 06:56] LABS: Basophils # (auto) 0 10 ^3/uL (0-0.2); Basophils % (auto) 0.4 % (0.0-2.0); Eosinophils # (auto) 0.1 10 ^3/uL (0-0.8); Eosinophils % (auto) 1.1 % (0.0-7.0); Hemoglobin 10.9 g/dL (13.5-17.5); Lymphocytes # (auto) 0.9 10 ^3/uL (0.4-5.4); Lymphocytes % (auto) 14.6 % (10.0-50.0); Mean Corpuscular Hemoglobin 32.2 pg (28.0-32.0); Mean Corpuscular Volume 94.8 fL (80.0-100.0); Monocytes # (auto) 0.5 10 ^3/uL (0-1.3); Monocytes % (auto) 7.4 % (0.0-12.0); Neutrophils # (auto) 4.9 10 ^3/uL (1.6-8.6); Neutrophils % (auto) 76.5 % (37.0-80.0); Platelet Count (auto) 344 10^3/uL (140-450); Red Blood Cells 3.38 10^6/uL (4.5-5.90); Red Cell Distribution Width 15.9 % (11.8-14.3); White Blood Cell 6.4 10^3/uL (4.4-10.8)
[2024-07-22] MEDS ORDERED: SODIUM CHL 0.9% 1000 ML BAG XX ONE (07:00)
[2024-07-22 07:28] LABS: Albumin 3.7 g/dL (3.2-4.8); Alkaline Phosphatase 74 U/L (46-116); Anion Gap 8 (5-15); Aspartate Aminotransferase 15 U/L (13-40); BUN/Creatinine Ratio 4.5 (10.0-20.0); Calcium 9.5 mg/dL (8.7-10.4); Carbon Dioxide 31 mmol/L (20-31); Chloride 99 mmol/L (98-107); Cholesterol 140 mg/dL (< 200); Glucose 102 mg/dL (74-106); LDL Cholesterol 62 mg/dL (< 100); Potassium 3.8 mmol/L (3.5-5.1); Sodium 138 mmol/L (136-145); Triglycerides 100 mg/dL (< 150)
[2024-07-22 07:29] LABS: Bilirubin, Total 0.5 mg/dL (0.2-1.0); HDL Cholesterol 47 mg/dL (40-59); Total Protein 6.7 g/dL (5.7-8.2)
[2024-07-22 07:30] LABS: Alanine Aminotransferase < 9 U/L (7-40); Blood Urea Nitrogen 34 mg/dL (9-23)
--- NOTE | 2024-07-22 08:15 | DVHPN2 ---
Progress Note - Dictate Date Seen: Jul 22, 2024 Medical Necessity Reason Pt with a Central, PICC or Fol: No Subjective Feeling well no complains today. S/P Thoracentesis. vital signs Vital Sign Date Time Temp Pulse Resp B/P (MAP) Pulse Ox O2 Delivery O2 Flow Rate FiO2 07/22/24 05:00 98.4 89 16 113/74 (87) 97 98.4 07/21/24 20:00 Nasal Cannula* 2 28 Total Intake and Output 07/21/24 07/21/24 07/22/24 15:00 23:00 07:00 Intake Total 250 ml 400 ml Balance 250 ml 400 ml medications Current Medications Medications Dose Ordered Sig/Zeferino Route Start Time Stop Time Status Last Admin Dose Admin Hydralazine HCl 10 mg Q6HP PRN PO 07/21/24 15:30 Cefepime HCl 50 ml @ 12.5 mls/hr DAILY@1600 IV 07/21/24 16:00 07/21/24 15:49 12.5 MLS/HR Diagnostic Test (Pha) 1 strip IQ4HR 07/21/24 16:00 07/22/24 08:06 1 STRIP Insulin Human Regular IQ4HR SC 07/21/24 16:00 07/21/24 20:00 2 UNITS Dextrose 50 ml UD PRN IV 07/21/24 15:30 Docusate Sodium 100 mg BIDPRN PRN PO 07/21/24 15:30 Acetaminophen 650 mg Q6HP PRN PO 07/21/24 15:30 Acetaminophen/ Hydrocodone Bitart 1 tab Q4HP PRN PO 07/21/24 15:30 Ondansetron HCl 4 mg Q4HP PRN IV 07/21/24 15:30 Morphine Sulfate 2 mg Q4HPRN PRN IV 07/21/24 15:30 Albuterol 2.5 mg Q4HPRN PRN NEB 07/21/24 15:30 Ipratropium [place] 0.5 mg Q4HPRN PRN NEB 07/21/24 15:30 Azithromycin 500 mg DAILY PO 07/22/24 10:00 objective HEENT: No evidence of JVD, no oral ulcers. Pulmonary: Lungs are clear on auscultation bilaterally Cardiovascular S1-S2, no S3 or S4 Abdomen: Bowel sounds positive, soft no rebound tenderness Skin: No rash Neurological: Alert, oriented, no focal weakness Right chest tunneled HD line with no complication laboratory and microbiology Laboratory Tests 07/22/24 05:56 Test 07/22/24 05:56 Range/Units Serum Glucose 102 74-106 mg/dL Assessment/Plan Assessment: 1. End-stage renal disease on hemodialysis TTS 2. Concern for right lower lobe pneumonia 3. Moderate right-sided pleural effusion s/p thoracentesis 4. Fall 5. Syncope 6. Anemia 7. Hypertension Plan/Recommendations: Hemodialysis TTS. Cardiac consult, 2D echo Monitored on telemetry No indication for dialysis today Jeremías for goal hemoglobin 10-11 PTOT evaluation Fluid restrict less than 1 L per day After HD; if stable can be discharged home. Thank you very much for allowing us to participate in the care of this patient. Plan discussed with: Patient AYAN HUGGINS MD Jul 22, 2024 08:15
[2024-07-22] MEDS: AZITHROMYCIN 250 MG TAB PO SCH (09:42)
[2024-07-22] MEDS ORDERED: AZITHROMYCIN 250 MG TAB PO SCH (10:00)
--- NOTE | 2024-07-22 10:01 | DVHPNRES ---
Progress Note Date Seen: Jul 22, 2024 Resident Creating Document: [facility] RESIDENT Medical Necessity Reason Pt with a Central, PICC or Fol: No Subjective Review of Systems Patient is a 84-year-old male with a past medical history of end-stage renal disease on hemodialysis Friday, , Friday, hypertension, BPH presented to the ED with a chief complaint of shortness of breath and generalized weakness. Patient reported that he started feeling short of breath since 3-4 days ago with slowly worsened and he was feeling weak and dizzy and had a fall without loss of consciousness and with no head injury. Patient denied chest pain, orthopnea, PND, fever, chills, abdominal pain, nausea, vomiting. Chest x- ray showed right-sided moderate pleural effusion, very minimal left-sided pleural effusion. Chest ultrasound showed moderate right-sided pleural effusion. Past medical history: As per HPI Past surgical history: Right tunneled hemodialysis catheter Social history: Lives with and denies smoking, alcohol, drug use Home medications: Simvastatin, finasteride, tamsulosin, sevelamer, temazepam Review of systems Patient seen and examined at the bedside. Patient is alert and oriented x 3. Patient sitting in bed with oxygen support 2 liter/minute reports no shortness of breath on oxygen support but on walking to the restroom he feels slightly out of breath. Patient denies chest pain, nausea, vomiting, chills, fever, change in bowel movement. Patient's vitals at the time of examination stable. Objective vital signs Vital Sign Date Time Temp Pulse Resp B/P (MAP) Pulse Ox O2 Delivery O2 Flow Rate FiO2 07/22/24 08:39 98.0 85 16 142/81 (101) 95 98.0 07/21/24 20:00 Nasal Cannula* 2 28 Total Intake and Output 07/21/24 07/21/24 07/22/24 15:00 23:00 07:00 Intake Total 250 ml 400 ml Balance 250 ml 400 ml medications Current Medications Medications Dose Ordered Sig/Zeferino Route Start Time Stop Time Status Last Admin Dose Admin Hydralazine HCl 10 mg Q6HP PRN PO 07/21/24 15:30 Cefepime HCl 50 ml @ 12.5 mls/hr DAILY@1600 IV 07/21/24 16:00 07/21/24 15:49 12.5 MLS/HR Diagnostic Test (Pha) 1 strip IQ4HR 07/21/24 16:00 07/22/24 08:06 1 STRIP Insulin Human Regular IQ4HR SC 07/21/24 16:00 07/21/24 20:00 2 UNITS Dextrose 50 ml UD PRN IV 07/21/24 15:30 Docusate Sodium 100 mg BIDPRN PRN PO 07/21/24 15:30 Acetaminophen 650 mg Q6HP PRN PO 07/21/24 15:30 Acetaminophen/ Hydrocodone Bitart 1 tab Q4HP PRN PO 07/21/24 15:30 Ondansetron HCl 4 mg Q4HP PRN IV 07/21/24 15:30 Morphine Sulfate 2 mg Q4HPRN PRN IV 07/21/24 15:30 Albuterol 2.5 mg Q4HPRN PRN NEB 07/21/24 15:30 Ipratropium [place] 0.5 mg Q4HPRN PRN NEB 07/21/24 15:30 Azithromycin 500 mg DAILY PO 07/22/24 10:00 07/22/24 09:42 500 MG Examination Physical Examination Gen - no pallor, no icterus, no cyanosis, no clubbing, no LAD, no edema . Skin - Patients skin is warm and dry.. HEENT - normocephalic, atraumatic, moist mucous membranes. Right tunneled hemodialysis catheter. Neck - full ROM, no LAD, no JVD. Pulmonary - breath sounds absent on the right lower side, improved in the midright side, vesicular breath sounds heard in the left lung and in the right upper lobe. cardiovascular - normal S1,S2 heard. no murmurs heard. peripheral pulses normal radial 2+, pedal 2+. capillary refill normal <2 secs. GI - soft abdomen without tenderness to palpation . no hepatospleenomegaly. Bowel sounds normoactive Neurological - Patient is A/O X 2 . Bilateral upper extremity strength 4/5, bilateral lower extremity strength 4/5, no facial droop, normal speech, no tremor, no sensory deficiets. laboratory and microbiology Laboratory Tests 07/22/24 05:56 Test 07/22/24 05:56 Range/Units Serum Glucose 102 74-106 mg/dL Microbiology Date/Time Source Procedure Growth Status 07/20/24 17:55 Blood Blood Culture - Preliminary NO GROWTH AFTER 24 HOURS OF INCUBATION. Resulted Problem List/Assessment/Plan Problem List/Assessment/Plan Assessment and plan # Acute hypoxic respiratory failure likely due to ?community-acquired pneumonia ? Pleural effusion -On oxygen at 2 liters/minute via nasal cannula -albuterol and ipratropium nebulizer p.r.n. # right pleural effusion ? Fluid overload due to ESRD ? d/t pneumonia ? Malignant - moderate right-sided pleural effusion on chest ultrasound and chest x-ray - thoracocentesis done at bedside under supervision of Dr. Cazares with removal of about 1850 mL of serosanguineous fluid - Pleural fluid WBC elevated, RBC elevated - chest x-ray status post thoracocentesis shows improved right pleural effusion # ?community-acquired pneumonia likely due to Gram +/-bacteria - patient on cefepime 1 g IV daily and azithromycin 500 mg p.o. daily - on oxygen support # end-stage renal disease - Serum creatinine 5.99 - patient had a right tunneled hemodialysis catheter with hemodialysis on Friday, , Friday - nephrology consulted - hemodialysis done today on 07/22/24 - monitor electrolytes - strict I&Os - fluid restriction 1 L per day Goals of care discussed with the patient and daughter in law HOLDEN for over 25 minutes. Full code Plan discussed with Dr. Arteaga Plan discussed with: Patient, Other My Orders My Orders Orders - RON MULLEN Procedure Category Date Status Time Hydralazine Hcl PHA 07/21/24 In Process Tablet (Apresoline 15:30 Us Guided Needle [place] US 07/21/24 Logged Tho/Parac 18:17 Body Fluid Culture W/ EULALIO 07/21/24 In Process GS 18:17 Glucose Body Fluid LAB 07/21/24 In Process 18:17 Protein, Body Fluid LAB 07/21/24 In Process 18:17 Lactate LAB 07/21/24 In Process Dehydrogenase, Fluid 18:17 Cytology EULALIO 07/21/24 Transmitted 18:17 Chest Xray 1 View XY 07/21/24 Resulted 18:17 Echo 2d Mode Cardiac US 07/22/24 Logged DOP 08:21 Date of Service: Jul 22, 2024 Billing Provider: REBEL FAITH MD Common Visit Codes: [id number] INP/OBS CARE(HIGH) RON MULLEN RESIDENT Jul 22, 2024 10:01 REBEL FAITH MD Jul 23, 2024 09:14
--- NOTE | 2024-07-22 15:34 | DVHSR ---
APPROVED REPORT EXAM: Two-dimensional and M-mode echocardiogram with Doppler and color Doppler. Blood Pressure: 113/74 mmHg INDICATION Pulmonary congestion RISK FACTORS Height: 5'6", Weight: 158 DIMENSIONS LVDd5.7 (3.8-5.7cm)LA (2D)5.0 (1.9-4.0cm)Aortic Root4.2 (2.0-3.7cm) LVDs4.4 (2.5-4.0cm)LA (MM) (1.9-4.0cm)Aortic Cusp Exc1.3 (1.5-2.0cm) EF (%) 47.0 (55-70%)Rt. Atrium5.5 (1.9-4.0cm)Asc. Aorta3.9 cm IVSd1.3 (0.7-1.1cm)RV (D)3.9 (1.8-2.4cm) PWd1.1 (0.7-1.1cm) Mitral Valve MitralMitral Stenosis E wave0.99m/sMV Mean GR.mmHg E/A ratio0.02D MVAcm2 Aortic Valve Aortic ValveAortic Stenosis V11.04m/Chuckie Mean GR.5mmHg V21.52m/Chuckie Peak GR.9mmHg LVOT Diameter2.1 (1.8-2.4cm)Doppler AVA2.37cm2 AI P 1/2 Nqwa555.65ms Pulmonic Valve V20.66m/s Conclusion Moderately reduced left ventricular systolic function estimated ejection fraction 45-40% in a global fashion. There is a grade 1 diastolic dysfunction. Normal right ventricular size and dimension. Moderately reduced right ventricular systolic function. Moderately dilated right and left atria. The aortic valve is mildly thickened and sclerotic there is [id number]-[id number] mitral valve regurgitati on. There is mild mitral valve regurgitation. There is mild tricuspid valve regurgitation. The pulmonary valve is grossly normal. No pericardial effusion.
[2024-07-22] MEDS ORDERED: EPOETIN ALFA-EPBX 4,000 UNIT/ML VIAL SC ONE (21:00)
--- NOTE | 2024-07-22 21:23 | DVHPN2 ---
Progress Note - Dictate Date Seen: Jul 22, 2024 Medical Necessity Reason Pt with a Central, PICC or Fol: No Subjective Patient seen and examined at bedside On supplemental oxygen No new complaints vital signs Vital Sign Date Time Temp Pulse Resp B/P (MAP) Pulse Ox O2 Delivery O2 Flow Rate FiO2 07/22/24 21:00 98.9 72 19 104/71 (82) 99 98.9 07/22/24 10:00 Nasal Cannula* 2 28 Total Intake and Output 07/21/24 07/21/24 07/22/24 15:00 23:00 07:00 Intake Total 250 ml 400 ml Balance 250 ml 400 ml medications Current Medications Medications Dose Ordered Sig/Zeferino Route Start Time Stop Time Status Last Admin Dose Admin Hydralazine HCl 10 mg Q6HP PRN PO 07/21/24 15:30 Cefepime HCl 50 ml @ 12.5 mls/hr DAILY@1600 IV 07/21/24 16:00 07/22/24 19:00 12.5 MLS/HR Diagnostic Test (Pha) 1 strip IQ4HR 07/21/24 16:00 07/22/24 20:09 1 STRIP Insulin Human Regular IQ4HR SC 07/21/24 16:00 07/22/24 20:18 2 UNITS Dextrose 50 ml UD PRN IV 07/21/24 15:30 Docusate Sodium 100 mg BIDPRN PRN PO 07/21/24 15:30 Acetaminophen 650 mg Q6HP PRN PO 07/21/24 15:30 Acetaminophen/ Hydrocodone Bitart 1 tab Q4HP PRN PO 07/21/24 15:30 Ondansetron HCl 4 mg Q4HP PRN IV 07/21/24 15:30 Morphine Sulfate 2 mg Q4HPRN PRN IV 07/21/24 15:30 Albuterol 2.5 mg Q4HPRN PRN NEB 07/21/24 15:30 Ipratropium [place] 0.5 mg Q4HPRN PRN NEB 07/21/24 15:30 Azithromycin 500 mg DAILY PO 07/22/24 10:00 07/22/24 09:42 500 MG objective Gen.: Patient lying in bed in no apparent distress. On supplemental oxygen. Head: Normocephalic, atraumatic. Eyes: EOMI/PERRLA. Ears: Normal hearing. Normal anatomy. Neck/trachea: Trachea midline, supple. Nose: Normal external anatomy. Mouth: Moist mucous membranes. Chest: Decreased air entry bilaterally. No wheezing or rhonchi. Cardiovascular: Positive S1, positive S2. Regular rate and rhythm. Abdomen: Positive bowel sounds in all 4 quadrants. Soft, non-tender, non- distended. : Deferred. Rectal: Deferred. Skin: Warm, dry. Intact. Extremities: 2+ radial pulses bilaterally. No lower extremity edema. Neuro: Awake, alert, oriented x3. No gross motor or sensory deficits. Cranial nerves II through XII intact. Gait not assessed. laboratory and microbiology Laboratory Tests 07/22/24 05:56 Test 07/22/24 05:56 Range/Units Serum Glucose 102 74-106 mg/dL Assessment/Plan Impression: Acute hypoxic respiratory failure Right lower lobe pneumonia, likely Gram-negative Pleural effusion Atelectasis Status post fall with no significant injury Obesity with a BMI of 32.2 End-stage renal disease on hemodialysis Events: On supplemental O2 at 2 LPM NC Taper O2 as tolerated S/p right thoracentesis w/ drainage of 1850 mL from right pleural space on 07/21. See separate procedure note for details. CXR post procedure demonstrated small right pleural effusion with compressive atelectasis, improved from prior Will obtain CXR in AM to assess for interval changes. Continue antibiotics HD per Nephrology Monitor renal function. Monitor electrolytes. Supplement as necessary. Labs and imaging reviewed. Rest of plan as noted below. Plan: Chest x-ray imaging report reviewed. Possible right pleural effusion. Pulmonary edema. Atelectasis, compressive. Chest ultrasound demonstrated [id number] right pleural effusion. S/p right thoracentesis w/ drainage of 1850 mL from right pleural space. See separate procedure note for details. Supplemental oxygen 2 liters/minute via nasal cannula. Keep O2 saturation above 92%. Bronchodilators PRN Antibiotics , cefepime Send sputum for Gram stain and culture if able to produce. ESRD, on hemodialysis Hemodialysis per nephrology Monitor renal function Monitor electrolytes. Supplement as necessary Monitor ins and outs Accu-Cheks, insulin sliding scale DVT prophylaxis Prognosis: Guarded given multiple comorbidities. Rest of plan per hospitalist and other consultants. Thank you Dr. Padilla for allowing me to participate in this patient's care. Further recommendations will depend on patient's clinical course. Please do not hesitate to contact me if you have any questions or concerns. This medical document was created using an electronic medical record system with [employer] computerized dictation system. Although this document has been carefully reviewed, there may still be some phonetic and typographical errors. These areas are purely typographical due to imperfections of the software programs, and do not reflect any compromise in the patient's medical care. Plan discussed with: Patient, Other (CIARRA Martínez) ROD LOPEZ MD Jul 22, 2024 21:23
[2024-07-23] VITALS (12 sets, daily range): BP systolic 97–158; BP diastolic 55–74; PULSE 18–90; RESP 14–97; TEMP 97.6–98.3; O2SAT 94–99
--- NOTE | 2024-07-23 05:44 | DVH ---
CHEST RADIOGRAPH Indication: Shortness of breath Technique: Single frontal view of the chest was obtained Comparison: XY CHEST XRAY 1 VIEW on DOS: 07/21/24 FINDINGS: Lines and Tubes: There is a right hemodialysis catheter with its tip terminating in the superior vena cava. Lungs: Patchy right lung opacities.. Pleura: No effusion. No pneumothorax. Cardiomediastinal contours: Unremarkable Bones: No acute osseous abnormality. IMPRESSION: 1. Right lung opacities which may reflect pneumonia in the appropriate clinical setting.
[2024-07-23 06:54] LABS: Anion Gap 6 (5-15); Carbon Dioxide 31 mmol/L (20-31); Chloride 102 mmol/L (98-107); Potassium 3.7 mmol/L (3.5-5.1); Sodium 139 mmol/L (136-145)
[2024-07-23 06:55] LABS: Calcium 9.3 mg/dL (8.7-10.4)
[2024-07-23 07:00] LABS: BUN/Creatinine Ratio 4.4 (10.0-20.0); Glucose 86 mg/dL (74-106)
[2024-07-23 07:01] LABS: Blood Urea Nitrogen 23 mg/dL (9-23)
[2024-07-23 07:03] LABS: Basophils # (auto) 0 10 ^3/uL (0-0.2); Basophils % (auto) 0.4 % (0.0-2.0); Eosinophils # (auto) 0.1 10 ^3/uL (0-0.8); Eosinophils % (auto) 1.9 % (0.0-7.0); Hematocrit 31.1 % (41.0-53.0); Hemoglobin 10.5 g/dL (13.5-17.5); Lymphocytes # (auto) 0.9 10 ^3/uL (0.4-5.4); Lymphocytes % (auto) 17.1 % (10.0-50.0); Mean Corpuscular Hemoglobin 31.9 pg (28.0-32.0); Mean Corpuscular Hgb Conc. 33.7 g/dL (32.0-36.0); Mean Corpuscular Volume 94.9 fL (80.0-100.0); Monocytes # (auto) 0.6 10 ^3/uL (0-1.3); Monocytes % (auto) 11.2 % (0.0-12.0); Neutrophils # (auto) 3.8 10 ^3/uL (1.6-8.6); Neutrophils % (auto) 69.4 % (37.0-80.0); Nucleated Red Blood Cells % 0.1 %; Platelet Count (auto) 318 10^3/uL (140-450); Red Blood Cells 3.28 10^6/uL (4.5-5.90); Red Cell Distribution Width 15.8 % (11.8-14.3); White Blood Cell 5.5 10^3/uL (4.4-10.8)
[2024-07-23 12:06] LABS: Protein, Body Fluid 3.8 g/dL (.)
--- NOTE | 2024-07-23 12:48 | DVHPN2 ---
Progress Note - Dictate Date Seen: Jul 23, 2024 Has the PT tested + for MRSA If YES, has PT been informed?: No Medical Necessity Reason Pt with a Central, PICC or Fol: No Subjective No new complaints vital signs Vital Sign Date Time Temp Pulse Resp B/P (MAP) Pulse Ox O2 Delivery O2 Flow Rate FiO2 07/23/24 09:00 97.9 90 14 137/67 (90) 98 97.9 07/23/24 06:51 Room Air* 0 21 Total Intake and Output 07/22/24 07/22/24 07/23/24 15:00 23:00 07:00 Intake Total 700 ml 300 ml Output Total 250 ml Balance 700 ml 50 ml medications Current Medications Medications Dose Ordered Sig/Zeferino Route Start Time Stop Time Status Last Admin Dose Admin Hydralazine HCl 10 mg Q6HP PRN PO 07/21/24 15:30 Cefepime HCl 50 ml @ 12.5 mls/hr DAILY@1600 IV 07/21/24 16:00 07/22/24 19:00 12.5 MLS/HR Diagnostic Test (Pha) 1 strip IQ4HR 07/21/24 16:00 07/23/24 11:52 1 STRIP Insulin Human Regular IQ4HR SC 07/21/24 16:00 07/22/24 20:18 2 UNITS Dextrose 50 ml UD PRN IV 07/21/24 15:30 Docusate Sodium 100 mg BIDPRN PRN PO 07/21/24 15:30 Acetaminophen 650 mg Q6HP PRN PO 07/21/24 15:30 Acetaminophen/ Hydrocodone Bitart 1 tab Q4HP PRN PO 07/21/24 15:30 Ondansetron HCl 4 mg Q4HP PRN IV 07/21/24 15:30 Morphine Sulfate 2 mg Q4HPRN PRN IV 07/21/24 15:30 Albuterol 2.5 mg Q4HPRN PRN NEB 07/21/24 15:30 Ipratropium [place] 0.5 mg Q4HPRN PRN NEB 07/21/24 15:30 Azithromycin 500 mg DAILY PO 07/22/24 10:00 07/23/24 09:31 500 MG objective HEENT: No evidence of JVD, no oral ulcers. Pulmonary: Lungs are clear on auscultation bilaterally Cardiovascular S1-S2, no S3 or S4 Abdomen: Bowel sounds positive, soft no rebound tenderness Skin: No rash Neurological: Alert, oriented, no focal weakness Right chest tunneled HD line with no complication laboratory and microbiology Laboratory Tests 07/23/24 06:03 Test 07/23/24 06:03 Range/Units Serum Glucose 86 74-106 mg/dL Problem List Assessment: 1. End-stage renal disease on hemodialysis TTS 2. Pneumonia 3. Moderate right-sided pleural effusion s/p thoracentesis 4. Fall 5. Syncope 6. Anemia 7. Hypertension Plan/Recommendations: Hemodialysis TTS. Cardiac consult, 2D echo Monitored on telemetry Jeremías for goal hemoglobin 10-11 PTOT evaluation Fluid restrict less than 1 L per day DC home Plan discussed with: Other REBEKA CLEARY MD Jul 23, 2024 12:48
--- NOTE | 2024-07-23 17:42 | DVHPNRES ---
Progress Note Date Seen: Jul 23, 2024 Resident Creating Document: RON MULLEN RESIDENT Has the PT tested + for MRSA If YES, has PT been informed?: No Medical Necessity Reason Pt with a Central, PICC or Fol: No Subjective Review of Systems Patient is a 84-year-old male with a past medical history of end-stage renal disease on hemodialysis Friday, , Friday, hypertension, BPH presented to the ED with a chief complaint of shortness of breath and generalized weakness. Patient reported that he started feeling short of breath since 3-4 days ago with slowly worsened and he was feeling weak and dizzy and had a fall without loss of consciousness and with no head injury. Patient denied chest pain, orthopnea, PND, fever, chills, abdominal pain, nausea, vomiting. Chest x- ray showed right-sided moderate pleural effusion, very minimal left-sided pleural effusion. Chest ultrasound showed moderate right-sided pleural effusion. Past medical history: As per HPI Past surgical history: Right tunneled hemodialysis catheter Social history: Lives with and denies smoking, alcohol, drug use Home medications: Simvastatin, finasteride, tamsulosin, sevelamer, temazepam Review of systems Patient seen and examined at the bedside. Patient is alert and oriented x 3. Patient sitting in bed with oxygen support 2 liter/minute reports no shortness of breath on oxygen support but on walking to the restroom he feels slightly out of breath. Patient denies chest pain, nausea, vomiting, chills, fever, change in bowel movement. Patient's vitals at the time of examination stable. 07/23- patient is alert and oriented x3. Patient is saturating 95% on room air and is able to walk to the restroom using his walker feeling mild short of breath. Patient denies chest pain, dizziness, palpitations headache, nausea, vomiting, dizziness, fever. Patient's vitals are stable on examination. Repeat chest x-ray showing right lung opacity which may reflect pneumonia Objective vital signs Vital Sign Date Time Temp Pulse Resp B/P (MAP) Pulse Ox O2 Delivery O2 Flow Rate FiO2 07/23/24 16:52 97.6 66 16 150/74 (99) 95 97.6 07/23/24 06:51 Room Air* 0 21 Total Intake and Output 07/22/24 07/22/24 07/23/24 15:00 23:00 07:00 Intake Total 700 ml 300 ml Output Total 250 ml Balance 700 ml 50 ml medications Current Medications Medications Dose Ordered Sig/Zeferino Route Start Time Stop Time Status Last Admin Dose Admin Hydralazine HCl 10 mg Q6HP PRN PO 07/21/24 15:30 Cefepime HCl 50 ml @ 12.5 mls/hr DAILY@1600 IV 07/21/24 16:00 07/23/24 16:15 12.5 MLS/HR Diagnostic Test (Pha) 1 strip IQ4HR 07/21/24 16:00 07/23/24 16:14 1 STRIP Insulin Human Regular IQ4HR SC 07/21/24 16:00 07/22/24 20:18 2 UNITS Dextrose 50 ml UD PRN IV 07/21/24 15:30 Docusate Sodium 100 mg BIDPRN PRN PO 07/21/24 15:30 Acetaminophen 650 mg Q6HP PRN PO 07/21/24 15:30 Acetaminophen/ Hydrocodone Bitart 1 tab Q4HP PRN PO 07/21/24 15:30 Ondansetron HCl 4 mg Q4HP PRN IV 07/21/24 15:30 Morphine Sulfate 2 mg Q4HPRN PRN IV 07/21/24 15:30 Albuterol 2.5 mg Q4HPRN PRN NEB 07/21/24 15:30 Ipratropium [place] 0.5 mg Q4HPRN PRN NEB 07/21/24 15:30 Azithromycin 500 mg DAILY PO 07/22/24 10:00 07/23/24 09:31 500 MG Examination Physical Examination Gen - no pallor, no icterus, no cyanosis, no clubbing, no LAD, no edema . Skin - Patients skin is warm and dry.. HEENT - normocephalic, atraumatic, moist mucous membranes. Right tunneled hemodialysis catheter. Neck - full ROM, no LAD, no JVD. Pulmonary - breath sounds absent on the right lower side, improved in the midright side, with a right-sided inspiratory crackles heard vesicular breath sounds heard in the left lung and in the right upper lobe. cardiovascular - normal S1,S2 heard. no murmurs heard. peripheral pulses normal radial 2+, pedal 2+. capillary refill normal <2 secs. GI - soft abdomen without tenderness to palpation . no hepatospleenomegaly. Bowel sounds normoactive Neurological - Patient is A/O X 2 . Bilateral upper extremity strength 4/5, bilateral lower extremity strength 4/5, no facial droop, normal speech, no tremor, no sensory deficiets. laboratory and microbiology Laboratory Tests 07/23/24 06:03 Test 07/23/24 06:03 Range/Units Serum Glucose 86 74-106 mg/dL Microbiology Date/Time Source Procedure Growth Status 07/21/24 18:15 Pleural Fluid Gram Stain - Final Resulted 07/21/24 18:15 Pleural Fluid Body Fluid Culture - Preliminary Resulted 07/20/24 17:55 Blood Blood Culture - Preliminary NO GROWTH AFTER 48 HOURS OF INCUBATION. Resulted Problem List/Assessment/Plan Problem List/Assessment/Plan Assessment and plan # Acute hypoxic respiratory failure likely due to ?community-acquired pneumonia ? Pleural effusion -On oxygen at 2 liters/minute via nasal cannula -albuterol and ipratropium nebulizer p.r.n. # right pleural effusion ? Fluid overload due to ESRD ? d/t pneumonia ? Malignant - moderate right-sided pleural effusion on chest ultrasound and chest x-ray - thoracocentesis done at bedside under supervision of Dr. Cazares with removal of about 1850 mL of serosanguineous fluid - Pleural fluid WBC elevated, RBC elevated - chest x-ray status post thoracocentesis shows improved right pleural effusion # ?community-acquired pneumonia likely due to Gram +/-bacteria - patient on cefepime 1 g IV daily and azithromycin 500 mg p.o. daily - on oxygen support # end-stage renal disease - Serum creatinine 5.99 - patient had a right tunneled hemodialysis catheter with hemodialysis on Friday, , Friday - nephrology consulted - hemodialysis done today on 07/22/24 - monitor electrolytes - strict I&Os - fluid restriction 1 L per day Goals of care discussed with the patient and daughter in law HOLDEN for over 25 minutes. Full code Plan discussed with Dr. Arteaga Plan discussed with: Patient My Orders My Orders Orders - RON MULLEN RESIDENT Procedure Category Date Status Time Chest Xray 1 View XY 07/23/24 Resulted 04:00 Pt Request For Service PT 07/23/24 Logged 07:24 Date of Service: Jul 23, 2024 Billing Provider: REBEL FAITH MD Common Visit Codes: [id number] INP/OBS CARE(HIGH) RON MULLEN RESIDENT Jul 23, 2024 17:42 REBEL FAITH MD Jul 25, 2024 09:21
--- NOTE | 2024-07-23 21:11 | DVHPN2 ---
Progress Note - Dictate Date Seen: Jul 23, 2024 Has the PT tested + for MRSA If YES, has PT been informed?: No Medical Necessity Reason Pt with a Central, PICC or Fol: No Subjective Patient seen and examined at bedside On supplemental oxygen No new complaints vital signs Vital Sign Date Time Temp Pulse Resp B/P (MAP) Pulse Ox O2 Delivery O2 Flow Rate FiO2 07/23/24 19:33 66 16 150/74 95 2.0 28 07/23/24 16:52 97.6 97.6 07/23/24 10:00 Nasal Cannula Total Intake and Output 07/22/24 07/22/24 07/23/24 15:00 23:00 07:00 Intake Total 700 ml 300 ml Output Total 250 ml Balance 700 ml 50 ml medications Current Medications Medications Dose Ordered Sig/Zeferino Route Start Time Stop Time Status Last Admin Dose Admin Hydralazine HCl 10 mg Q6HP PRN PO 07/21/24 15:30 Cefepime HCl 50 ml @ 12.5 mls/hr DAILY@1600 IV 07/21/24 16:00 07/23/24 16:15 12.5 MLS/HR Diagnostic Test (Pha) 1 strip IQ4HR 07/21/24 16:00 07/23/24 19:56 1 STRIP Insulin Human Regular IQ4HR SC 07/21/24 16:00 07/23/24 20:04 2 UNITS Dextrose 50 ml UD PRN IV 07/21/24 15:30 Docusate Sodium 100 mg BIDPRN PRN PO 07/21/24 15:30 Acetaminophen 650 mg Q6HP PRN PO 07/21/24 15:30 Acetaminophen/ Hydrocodone Bitart 1 tab Q4HP PRN PO 07/21/24 15:30 Ondansetron HCl 4 mg Q4HP PRN IV 07/21/24 15:30 Morphine Sulfate 2 mg Q4HPRN PRN IV 07/21/24 15:30 Albuterol 2.5 mg Q4HPRN PRN NEB 07/21/24 15:30 Ipratropium [place] 0.5 mg Q4HPRN PRN NEB 07/21/24 15:30 Azithromycin 500 mg DAILY PO 07/22/24 10:00 07/23/24 09:31 500 MG objective Gen.: Patient lying in bed in no apparent distress. On supplemental oxygen. Head: Normocephalic, atraumatic. Eyes: EOMI/PERRLA. Ears: Normal hearing. Normal anatomy. Neck/trachea: Trachea midline, supple. Nose: Normal external anatomy. Mouth: Moist mucous membranes. Chest: Decreased air entry bilaterally. No wheezing or rhonchi. Cardiovascular: Positive S1, positive S2. Regular rate and rhythm. Abdomen: Positive bowel sounds in all 4 quadrants. Soft, non-tender, non- distended. : Deferred. Rectal: Deferred. Skin: Warm, dry. Intact. Extremities: 2+ radial pulses bilaterally. No lower extremity edema. Neuro: Awake, alert, oriented x3. No gross motor or sensory deficits. Cranial nerves II through XII intact. Gait not assessed. laboratory and microbiology Laboratory Tests 07/23/24 06:03 Test 07/23/24 06:03 Range/Units Serum Glucose 86 74-106 mg/dL Assessment/Plan Impression: Acute hypoxic respiratory failure Right lower lobe pneumonia, likely Gram-negative Pleural effusion Atelectasis Status post fall with no significant injury Obesity with a BMI of 32.2 End-stage renal disease on hemodialysis Events: On supplemental O2 at 2 LPM NC Taper O2 as tolerated Improved O2 requirements CXR demonstrates patchy right lung opacities. No pleural effusion or pneumothorax. Complete antibiotics Continue bronchodilators IS. HD per Nephrology Monitor renal function. Monitor electrolytes. Supplement as necessary. Labs and imaging reviewed. Rest of plan as noted below. Plan: Chest x-ray imaging report reviewed. Possible right pleural effusion. Pulmonary edema. Atelectasis, compressive. Chest ultrasound demonstrated [id number] right pleural effusion. S/p right thoracentesis w/ drainage of 1850 mL from right pleural space on 07/21. See separate procedure note for details. Supplemental oxygen 2 liters/minute via nasal cannula. Keep O2 saturation above 92%. Bronchodilators PRN Antibiotics, cefepime and azithromycin Send sputum for Gram stain and culture if able to produce. ESRD, on hemodialysis Hemodialysis per nephrology Monitor renal function Monitor electrolytes. Supplement as necessary Monitor ins and outs Accu-Cheks, insulin sliding scale DVT prophylaxis Prognosis: Guarded given multiple comorbidities. Rest of plan per hospitalist and other consultants. Thank you Dr. Padilla for allowing me to participate in this patient's care. Further recommendations will depend on patient's clinical course. Please do not hesitate to contact me if you have any questions or concerns. This medical document was created using an electronic medical record system with [employer] dictation system. Although this document has been carefully reviewed, there may still be some phonetic and typographical errors. These areas are purely typographical due to imperfections of the software programs, and do not reflect any compromise in the patient's medical care. Plan discussed with: Patient, Other (CIARRA Arzate) ROD LOPEZ MD Jul 23, 2024 21:11
[2024-07-24] VITALS (9 sets, daily range): BP systolic 133–149; BP diastolic 58–70; PULSE 73–87; RESP 17–19; TEMP 97.7–98.7; O2SAT 94–99
[2024-07-24] MEDS: MELATONIN 5 MG TAB PO PRN (00:41)
[2024-07-24 06:10] LABS: Basophils # (auto) 0 10 ^3/uL (0-0.2); Basophils % (auto) 0.5 % (0.0-2.0); Eosinophils # (auto) 0.1 10 ^3/uL (0-0.8); Hematocrit 28.2 % (41.0-53.0); Hemoglobin 9.7 g/dL (13.5-17.5); Lymphocytes # (auto) 1.4 10 ^3/uL (0.4-5.4); Lymphocytes % (auto) 20.8 % (10.0-50.0); Mean Corpuscular Hemoglobin 32.3 pg (28.0-32.0); Mean Corpuscular Hgb Conc. 34.3 g/dL (32.0-36.0); Monocytes # (auto) 0.7 10 ^3/uL (0-1.3); Monocytes % (auto) 10.1 % (0.0-12.0); Neutrophils # (auto) 4.4 10 ^3/uL (1.6-8.6); Neutrophils % (auto) 66.6 % (37.0-80.0); Platelet Count (auto) 300 10^3/uL (140-450); Red Cell Distribution Width 16.1 % (11.8-14.3); White Blood Cell 6.6 10^3/uL (4.4-10.8)
[2024-07-24 06:13] LABS: Anion Gap 8 (5-15); Carbon Dioxide 29 mmol/L (20-31); Chloride 101 mmol/L (98-107); Potassium 3.7 mmol/L (3.5-5.1); Sodium 138 mmol/L (136-145)
[2024-07-24 06:14] LABS: Calcium 9.4 mg/dL (8.7-10.4)
[2024-07-24 06:19] LABS: BUN/Creatinine Ratio 5.3 (10.0-20.0); Glucose 87 mg/dL (74-106)
[2024-07-24 06:46] LABS: Blood Urea Nitrogen 38 mg/dL (9-23)
[2024-07-24] MEDS ORDERED: SODIUM CHL 0.9% 1000 ML BAG XX ONE (07:00)
--- NOTE | 2024-07-24 13:21 | DVHPN2 ---
Progress Note - Dictate Date Seen: Jul 24, 2024 Has the PT tested + for MRSA If YES, has PT been informed?: No Medical Necessity Reason Pt with a Central, PICC or Fol: No Subjective No new complaints vital signs Vital Sign Date Time Temp Pulse Resp B/P (MAP) Pulse Ox O2 Delivery O2 Flow Rate FiO2 07/24/24 09:00 97.7 87 18 133/69 (90) 94 97.7 07/23/24 20:00 Room Air* 0 21 Total Intake and Output 07/23/24 07/23/24 07/24/24 15:00 23:00 07:00 Intake Total 850 ml 250 ml Output Total 250 ml 0 ml Balance 600 ml 250 ml medications Current Medications Medications Dose Ordered Sig/Zeferino Route Start Time Stop Time Status Last Admin Dose Admin Hydralazine HCl 10 mg Q6HP PRN PO 07/21/24 15:30 Cefepime HCl 50 ml @ 12.5 mls/hr DAILY@1600 IV 07/21/24 16:00 07/23/24 16:15 12.5 MLS/HR Diagnostic Test (Pha) 1 strip IQ4HR 07/21/24 16:00 07/24/24 12:26 1 STRIP Insulin Human Regular IQ4HR SC 07/21/24 16:00 07/24/24 09:29 2 UNITS Dextrose 50 ml UD PRN IV 07/21/24 15:30 Docusate Sodium 100 mg BIDPRN PRN PO 07/21/24 15:30 Acetaminophen 650 mg Q6HP PRN PO 07/21/24 15:30 Acetaminophen/ Hydrocodone Bitart 1 tab Q4HP PRN PO 07/21/24 15:30 Ondansetron HCl 4 mg Q4HP PRN IV 07/21/24 15:30 Morphine Sulfate 2 mg Q4HPRN PRN IV 07/21/24 15:30 Albuterol 2.5 mg Q4HPRN PRN NEB 07/21/24 15:30 Ipratropium [place] 0.5 mg Q4HPRN PRN NEB 07/21/24 15:30 Azithromycin 500 mg DAILY PO 07/22/24 10:00 07/24/24 09:30 500 MG Melatonin 5 mg HS PRN PO 07/24/24 00:30 07/24/24 00:41 5 MG objective HEENT: No evidence of JVD, no oral ulcers. Pulmonary: Lungs are clear on auscultation bilaterally Cardiovascular S1-S2, no S3 or S4 Abdomen: Bowel sounds positive, soft no rebound tenderness Skin: No rash Neurological: Alert, oriented, no focal weakness Right chest tunneled HD line with no complication laboratory and microbiology Laboratory Tests 07/24/24 05:28 Test 07/24/24 05:28 Range/Units Serum Glucose 87 74-106 mg/dL Problem List Assessment: 1. End-stage renal disease on hemodialysis TTS 2. Pneumonia 3. Moderate right-sided pleural effusion s/p thoracentesis 4. Fall 5. Syncope 6. Anemia 7. Hypertension Plan/Recommendations: Hemodialysis having HD today U goal 2.3 L Monitored on telemetry Jeremías for goal hemoglobin 10-11 PTOT evaluation Fluid restrict less than 1 L per day DC home Plan discussed with: Patient REBEKA CLEARY MD Jul 24, 2024 13:21
--- NOTE | 2024-07-24 21:57 | DVHPNRES ---
Progress Note Date Seen: Jul 24, 2024 Resident Creating Document: RON MULLEN RESIDENT Has the PT tested + for MRSA If YES, has PT been informed?: No Medical Necessity Reason Pt with a Central, PICC or Fol: No Subjective Review of Systems Patient is a 84-year-old male with a past medical history of end-stage renal disease on hemodialysis Friday, , Friday, hypertension, BPH presented to the ED with a chief complaint of shortness of breath and generalized weakness. Patient reported that he started feeling short of breath since 3-4 days ago with slowly worsened and he was feeling weak and dizzy and had a fall without loss of consciousness and with no head injury. Patient denied chest pain, orthopnea, PND, fever, chills, abdominal pain, nausea, vomiting. Chest x- ray showed right-sided moderate pleural effusion, very minimal left-sided pleural effusion. Chest ultrasound showed moderate right-sided pleural effusion. Past medical history: As per HPI Past surgical history: Right tunneled hemodialysis catheter Social history: Lives with and denies smoking, alcohol, drug use Home medications: Simvastatin, finasteride, tamsulosin, sevelamer, temazepam Review of systems Patient seen and examined at the bedside. Patient is alert and oriented x 3. Patient sitting in bed with oxygen support 2 liter/minute reports no shortness of breath on oxygen support but on walking to the restroom he feels slightly out of breath. Patient denies chest pain, nausea, vomiting, chills, fever, change in bowel movement. Patient's vitals at the time of examination stable. 07/23- patient is alert and oriented x3. Patient is saturating 95% on room air and is able to walk to the restroom using his walker feeling mild short of breath. Patient denies chest pain, dizziness, palpitations headache, nausea, vomiting, dizziness, fever. Patient's vitals are stable on examination. Repeat chest x-ray showing right lung opacity which may reflect pneumonia 07/24- patient is alert and oriented x3. Patient is saturating 95% on room air and is able to walk to the restroom using his walker feeling mild short of breath. Patient denies chest pain, dizziness, palpitations headache, nausea, vomiting, dizziness, fever. Patient's vitals are stable on examination. Patient was evaluated with ultrasonographic at bedside which showed reaccumulation of pleural fluid in the to the intercostal space in the posterior axillary line. Patient got hemodialysis done with the removal of about 3000 mL of fluid. Objective vital signs Vital Sign Date Time Temp Pulse Resp B/P (MAP) Pulse Ox O2 Delivery O2 Flow Rate FiO2 07/24/24 21:00 98.3 79 17 141/58 (85) 98 98.3 07/24/24 12:39 Room Air 0.0 07/24/24 12:39 21 Total Intake and Output 07/23/24 07/23/24 07/24/24 15:00 23:00 07:00 Intake Total 850 ml 250 ml Output Total 250 ml 0 ml Balance 600 ml 250 ml medications Current Medications Medications Dose Ordered Sig/Zeferino Route Start Time Stop Time Status Last Admin Dose Admin Hydralazine HCl 10 mg Q6HP PRN PO 07/21/24 15:30 Cefepime HCl 50 ml @ 12.5 mls/hr DAILY@1600 IV 07/21/24 16:00 07/24/24 16:30 12.5 MLS/HR Diagnostic Test (Pha) 1 strip IQ4HR 07/21/24 16:00 07/24/24 20:44 1 STRIP Insulin Human Regular IQ4HR SC 07/21/24 16:00 07/24/24 20:49 4 UNITS Dextrose 50 ml UD PRN IV 07/21/24 15:30 Docusate Sodium 100 mg BIDPRN PRN PO 07/21/24 15:30 Acetaminophen 650 mg Q6HP PRN PO 07/21/24 15:30 Acetaminophen/ Hydrocodone Bitart 1 tab Q4HP PRN PO 07/21/24 15:30 Ondansetron HCl 4 mg Q4HP PRN IV 07/21/24 15:30 Morphine Sulfate 2 mg Q4HPRN PRN IV 07/21/24 15:30 Albuterol 2.5 mg Q4HPRN PRN NEB 07/21/24 15:30 Ipratropium [place] 0.5 mg Q4HPRN PRN NEB 07/21/24 15:30 Azithromycin 500 mg DAILY PO 07/22/24 10:00 07/24/24 09:30 500 MG Melatonin 5 mg HS PRN PO 07/24/24 00:30 07/24/24 00:41 5 MG Examination Physical Examination Gen - no pallor, no icterus, no cyanosis, no clubbing, no LAD, no edema . Skin - Patients skin is warm and dry.. HEENT - normocephalic, atraumatic, moist mucous membranes. Right tunneled hemodialysis catheter. Neck - full ROM, no LAD, no JVD. Pulmonary - breath sounds absent on the right lower side, improved in the midright side, with a right-sided inspiratory crackles heard vesicular breath sounds heard in the left lung and in the right upper lobe. cardiovascular - normal S1,S2 heard. no murmurs heard. peripheral pulses normal radial 2+, pedal 2+. capillary refill normal <2 secs. GI - soft abdomen without tenderness to palpation . no hepatospleenomegaly. Bowel sounds normoactive Neurological - Patient is A/O X 2 . Bilateral upper extremity strength 4/5, bilateral lower extremity strength 4/5, no facial droop, normal speech, no tremor, no sensory deficiets. laboratory and microbiology Laboratory Tests 07/24/24 05:28 Test 07/24/24 05:28 Range/Units Serum Glucose 87 74-106 mg/dL Microbiology Date/Time Source Procedure Growth Status 07/21/24 18:15 Pleural Fluid Gram Stain - Final Resulted 07/21/24 18:15 Pleural Fluid Body Fluid Culture - Preliminary Resulted 07/20/24 17:55 Blood Blood Culture - Preliminary NO GROWTH AFTER 72 HOURS OF INCUBATION. Resulted Problem List/Assessment/Plan Problem List/Assessment/Plan Assessment and plan # Acute hypoxic respiratory failure likely due to ?community-acquired pneumonia ? Pleural effusion -On oxygen at 2 liters/minute via nasal cannula -albuterol and ipratropium nebulizer p.r.n. # right pleural effusion ? Fluid overload due to ESRD ? d/t pneumonia likely exudative - moderate right-sided pleural effusion on chest ultrasound and chest x-ray - thoracocentesis done at bedside under supervision of Dr. Cazares with removal of about 1850 mL of serosanguineous fluid - Pleural fluid WBC elevated, RBC elevated, pleural fluid protein: Serum Total protein ratio greater than 0.5 - pleural fluid culture shows no growth. - chest x-ray status post thoracocentesis shows improved right pleural effusion - bedside ultrasonography done on 07/24 shows reaccumulation of pleural fluid. - continue on antibiotics # ?community-acquired pneumonia likely due to Gram +/-bacteria - patient on cefepime 1 g IV daily and azithromycin 500 mg p.o. daily - on oxygen support # end-stage renal disease - Serum creatinine 5.99 - patient had a right tunneled hemodialysis catheter with hemodialysis on Friday, , Friday - nephrology consulted - hemodialysis done today on 07/22/24 and on 07/24/24. - monitor electrolytes - strict I&Os - fluid restriction 1 L per day Goals of care discussed with the patient for over 25 minutes. Full code Plan discussed with Dr. Arteaga Plan discussed with: Patient Date of Service: Jul 24, 2024 Billing Provider: REBEL FAITH MD Common Visit Codes: [id number] INP/OBS CARE(HIGH) RON MULLEN RESIDENT Jul 24, 2024 21:57 REBEL FAITH MD Jul 25, 2024 09:12
--- NOTE | 2024-07-24 22:11 | DVHPN2 ---
Progress Note - Dictate Date Seen: Jul 24, 2024 Has the PT tested + for MRSA If YES, has PT been informed?: No Medical Necessity Reason Pt with a Central, PICC or Fol: No Subjective Patient seen and examined at bedside Breathing comfortably on room air. No new complaints vital signs Vital Sign Date Time Temp Pulse Resp B/P (MAP) Pulse Ox O2 Delivery O2 Flow Rate FiO2 07/24/24 21:00 98.3 79 17 141/58 (85) 98 98.3 07/24/24 12:39 Room Air 0.0 07/24/24 12:39 21 Total Intake and Output 07/23/24 07/23/24 07/24/24 15:00 23:00 07:00 Intake Total 850 ml 250 ml Output Total 250 ml 0 ml Balance 600 ml 250 ml medications Current Medications Medications Dose Ordered Sig/Zeferino Route Start Time Stop Time Status Last Admin Dose Admin Hydralazine HCl 10 mg Q6HP PRN PO 07/21/24 15:30 Cefepime HCl 50 ml @ 12.5 mls/hr DAILY@1600 IV 07/21/24 16:00 07/24/24 16:30 12.5 MLS/HR Diagnostic Test (Pha) 1 strip IQ4HR 07/21/24 16:00 07/24/24 20:44 1 STRIP Insulin Human Regular IQ4HR SC 07/21/24 16:00 07/24/24 20:49 4 UNITS Dextrose 50 ml UD PRN IV 07/21/24 15:30 Docusate Sodium 100 mg BIDPRN PRN PO 07/21/24 15:30 Acetaminophen 650 mg Q6HP PRN PO 07/21/24 15:30 Acetaminophen/ Hydrocodone Bitart 1 tab Q4HP PRN PO 07/21/24 15:30 Ondansetron HCl 4 mg Q4HP PRN IV 07/21/24 15:30 Morphine Sulfate 2 mg Q4HPRN PRN IV 07/21/24 15:30 Albuterol 2.5 mg Q4HPRN PRN NEB 07/21/24 15:30 Ipratropium [place] 0.5 mg Q4HPRN PRN NEB 07/21/24 15:30 Azithromycin 500 mg DAILY PO 07/22/24 10:00 07/24/24 09:30 500 MG Melatonin 5 mg HS PRN PO 07/24/24 00:30 07/24/24 00:41 5 MG objective Gen.: Patient lying in bed in no apparent distress. Breathing on room air. Head: Normocephalic, atraumatic. Eyes: EOMI/PERRLA. Ears: Normal hearing. Normal anatomy. Neck/trachea: Trachea midline, supple. Nose: Normal external anatomy. Mouth: Moist mucous membranes. Chest: Decreased air entry bilaterally. No wheezing or rhonchi. Cardiovascular: Positive S1, positive S2. Regular rate and rhythm. Abdomen: Positive bowel sounds in all 4 quadrants. Soft, non-tender, non- distended. : Deferred. Rectal: Deferred. Skin: Warm, dry. Intact. Extremities: 2+ radial pulses bilaterally. No lower extremity edema. Neuro: Awake, alert, oriented x3. No gross motor or sensory deficits. Cranial nerves II through XII intact. Gait not assessed. laboratory and microbiology Laboratory Tests 07/24/24 05:28 Test 07/24/24 05:28 Range/Units Serum Glucose 87 74-106 mg/dL Assessment/Plan Impression: Acute hypoxic respiratory failure Right lower lobe pneumonia, likely Gram-negative Pleural effusion Atelectasis Status post fall with no significant injury Obesity with a BMI of 32.2 End-stage renal disease on hemodialysis Events: Breathing comfortably on room air. No respiratory distress. Complete antibiotics Continue bronchodilators IS. Accu-Cheks for glycemic monitoring. HD per Nephrology Monitor renal function. Monitor electrolytes. Supplement as necessary. Labs and imaging reviewed. Rest of plan as noted below. Plan: Chest x-ray imaging report reviewed. Possible right pleural effusion. Pulmonary edema. Atelectasis, compressive. Chest ultrasound demonstrated [id number] right pleural effusion. S/p right thoracentesis w/ drainage of 1850 mL from right pleural space on 07/21. See separate procedure note for details. Supplemental oxygen PRN Keep O2 saturation above 92%. Bronchodilators PRN Antibiotics, cefepime and azithromycin Send sputum for Gram stain and culture if able to produce. ESRD, on hemodialysis Hemodialysis per nephrology Monitor renal function Monitor electrolytes. Supplement as necessary Monitor ins and outs Accu-Cheks, insulin sliding scale DVT prophylaxis Prognosis: Guarded given multiple comorbidities. Rest of plan per hospitalist and other consultants. Thank you Dr. Padilla for allowing me to participate in this patient's care. Further recommendations will depend on patient's clinical course. Please do not hesitate to contact me if you have any questions or concerns. This medical document was created using an electronic medical record system with [employer] dictation system. Although this document has been carefully reviewed, there may still be some phonetic and typographical errors. These areas are purely typographical due to imperfections of the software programs, and do not reflect any compromise in the patient's medical care. Plan discussed with: Patient, Other (CIARRA Garcia) ROD LOPEZ MD Jul 24, 2024 22:11
[2024-07-25 01:00] VITALS: BP 124/55; PULSE 87; RESP 17; TEMP 97.4; O2SAT 95
[2024-07-25 05:00] VITALS: BP 104/65; PULSE 90; RESP 18; TEMP 98.1; O2SAT 95
[2024-07-25 06:45] LABS: Basophils # (auto) 0 10 ^3/uL (0-0.2); Basophils % (auto) 0.5 % (0.0-2.0); Eosinophils # (auto) 0.1 10 ^3/uL (0-0.8); Eosinophils % (auto) 1.4 % (0.0-7.0); Hemoglobin 10.9 g/dL (13.5-17.5); Lymphocytes # (auto) 1.2 10 ^3/uL (0.4-5.4); Lymphocytes % (auto) 17.8 % (10.0-50.0); Mean Corpuscular Hgb Conc. 34.2 g/dL (32.0-36.0); Mean Corpuscular Volume 93.5 fL (80.0-100.0); Monocytes # (auto) 0.6 10 ^3/uL (0-1.3); Monocytes % (auto) 9.3 % (0.0-12.0); Neutrophils # (auto) 4.6 10 ^3/uL (1.6-8.6); Platelet Count (auto) 328 10^3/uL (140-450); Red Blood Cells 3.42 10^6/uL (4.5-5.90); White Blood Cell 6.5 10^3/uL (4.4-10.8)
[2024-07-25 06:56] LABS: Anion Gap 9 (5-15); Carbon Dioxide 27 mmol/L (20-31); Chloride 101 mmol/L (98-107); Potassium 3.9 mmol/L (3.5-5.1); Sodium 137 mmol/L (136-145)
[2024-07-25 06:57] LABS: Calcium 9.4 mg/dL (8.7-10.4)
[2024-07-25 07:02] LABS: BUN/Creatinine Ratio 5.3 (10.0-20.0); Blood Urea Nitrogen 31 mg/dL (9-23); Glucose 89 mg/dL (74-106)
[2024-07-25 09:00] VITALS: BP 171/84; PULSE 100; RESP 20; TEMP 98; O2SAT 98
[2024-07-25 10:00] VITALS: O2SAT 100
--- NOTE | 2024-07-25 12:30 | DVHPN2 ---
Progress Note - Dictate Date Seen: Jul 25, 2024 Has the PT tested + for MRSA If YES, has PT been informed?: No Medical Necessity Reason Pt with a Central, PICC or Fol: No Subjective No new complaints vital signs Vital Sign Date Time Temp Pulse Resp B/P (MAP) Pulse Ox O2 Delivery O2 Flow Rate FiO2 07/25/24 10:00 100 Room Air* 0 21 07/25/24 09:00 98.0 100 20 171/84 (113) 98.0 Total Intake and Output 07/24/24 07/24/24 07/25/24 15:00 23:00 07:00 Intake Total 400 ml 400 ml Output Total 250 ml Balance 400 ml 150 ml medications Current Medications Medications Dose Ordered Sig/Zeferino Route Start Time Stop Time Status Last Admin Dose Admin Hydralazine HCl 10 mg Q6HP PRN PO 07/21/24 15:30 Cefepime HCl 50 ml @ 12.5 mls/hr DAILY@1600 IV 07/21/24 16:00 07/24/24 16:30 12.5 MLS/HR Diagnostic Test (Pha) 1 strip IQ4HR 07/21/24 16:00 07/25/24 12:02 1 STRIP Insulin Human Regular IQ4HR SC 07/21/24 16:00 07/24/24 20:49 4 UNITS Dextrose 50 ml UD PRN IV 07/21/24 15:30 Docusate Sodium 100 mg BIDPRN PRN PO 07/21/24 15:30 Acetaminophen 650 mg Q6HP PRN PO 07/21/24 15:30 Acetaminophen/ Hydrocodone Bitart 1 tab Q4HP PRN PO 07/21/24 15:30 Ondansetron HCl 4 mg Q4HP PRN IV 07/21/24 15:30 Morphine Sulfate 2 mg Q4HPRN PRN IV 07/21/24 15:30 Azithromycin 500 mg DAILY PO 07/22/24 10:00 07/25/24 08:38 500 MG Melatonin 5 mg HS PRN PO 07/24/24 00:30 07/24/24 00:41 5 MG objective HEENT: No evidence of JVD, no oral ulcers. Pulmonary: Lungs are clear on auscultation bilaterally Cardiovascular S1-S2, no S3 or S4 Abdomen: Bowel sounds positive, soft no rebound tenderness Skin: No rash Neurological: Alert, oriented, no focal weakness Right chest tunneled HD line with no complication laboratory and microbiology Laboratory Tests 07/25/24 06:23 Test 07/25/24 06:23 Range/Units Serum Glucose 89 74-106 mg/dL Problem List Assessment: 1. End-stage renal disease on hemodialysis TTS 2. Pneumonia 3. Moderate right-sided pleural effusion s/p thoracentesis 4. Fall 5. Syncope 6. Anemia 7. Hypertension Plan/Recommendations: Had HD yesterday 3 L removed Will do HD again tomorrow Jeremías for goal hemoglobin 10-11 PTOT evaluation Fluid restrict less than 1 L per day DC home Plan discussed with: Patient REBEKA CLEARY MD Jul 25, 2024 12:30
[2024-07-25 13:00] VITALS: BP 143/57; PULSE 86; RESP 20; TEMP 98.7; O2SAT 97
[2024-07-25] MEDS ORDERED: AZIT-185 PO (13:21)
[2024-07-25] MEDS ORDERED: CEFP200T15 PO (13:21)
[2024-07-25 14:51] VITALS: BP 171/84; PULSE 100; RESP 20; TEMP 98; O2SAT 98
--- NOTE | 2024-07-25 15:04 | DVHDSRES ---
Discharge Summary Date of Admission Resident Creating Document: DEBORAH CARRASCO RESIDENT Jul 20, 2024 at 16:37 Date of Discharge: Jul 25, 2024 Admitting Diagnosis Pneumoniae with parapneumonic effusion Labs/Diagnostic Data: Laboratory Results Test 07/25/24 11:52 07/25/24 06:23 07/24/24 05:28 07/22/24 05:56 POC Glucose 96 mg/dl (70-106) White Blood Count 6.5 10^3/uL (4.4-10.8) Red Blood Count 3.42 10^6/uL (4.5-5.90) Hemoglobin 10.9 g/dL (13.5-17.5) Hematocrit 32.0 % (41.0-53.0) Mean Corpuscular Volume 93.5 fL (80.0-100.0) Mean Corpuscular Hemoglobin 32.0 pg (28.0-32.0) Mean Corpuscular Hemoglobin Concent 34.2 g/dL (32.0-36.0) Red Cell Distribution Width 16.0 % (11.8-14.3) Platelet Count 328 10^3/uL (140-450) Mean Platelet Volume 6.1 fL (6.9-10.8) Neutrophils (%) (Auto) 71.0 % (37.0-80.0) Lymphocytes (%) (Auto) 17.8 % (10.0-50.0) Monocytes (%) (Auto) 9.3 % (0.0-12.0) Eosinophils (%) (Auto) 1.4 % (0.0-7.0) Basophils (%) (Auto) 0.5 % (0.0-2.0) Neutrophils # (Auto) 4.6 10 ^3/uL (1.6-8.6) Lymphocytes # (Auto) 1.2 10 ^3/uL (0.4-5.4) Monocytes # (Auto) 0.6 10 ^3/uL (0-1.3) Eosinophils # (Auto) 0.1 10 ^3/uL (0-0.8) Basophils # (Auto) 0 10 ^3/uL (0-0.2) Nucleated Red Blood Cells 0.0 % Sodium Level 137 mmol/L (136-145) Potassium Level 3.9 mmol/L (3.5-5.1) Chloride Level 101 mmol/L (98-107) Carbon Dioxide Level 27 mmol/L (20-31) Anion Gap 9 (5-15) Blood Urea Nitrogen 31 mg/dL (9-23) Creatinine 5.90 mg/dL (0.700-1.30) Glomerular Filtration Rate Calc 9 mL/min (>90) BUN/Creatinine Ratio 5.3 (10.0-20.0) Serum Glucose 89 mg/dL (74-106) Calcium Level 9.4 mg/dL (8.7-10.4) Hemoglobin A1c 5.3 % A1C (<5.7) Phosphorus Level 2.4 mg/dL (2.4-5.1) Total Bilirubin 0.5 mg/dL (0.2-1.0) Aspartate Amino Transferase (AST) 15 U/L (13-40) Alanine Aminotransferase (ALT) < 9 U/L (7-40) Alkaline Phosphatase 74 U/L (46-116) Total Protein 6.7 g/dL (5.7-8.2) Albumin 3.7 g/dL (3.2-4.8) Triglycerides Level 100 mg/dL (< 150) Cholesterol Level 140 mg/dL (< 200) LDL Cholesterol 62 mg/dL (< 100) HDL Cholesterol 47 mg/dL (40-59) Test 07/21/24 18:15 07/20/24 18:09 07/20/24 15:34 Body Fluid Source Pleural fluid Body Fluid pH 8.0 Body Fluid WBC (Manual) 1385 CUMM (0-200) Body Fluid RBC (Manual) 6865 CUMM (0-2000) Body Fluid Mononuclear Cells 84 % Body Fluid Polymorphonuclear Cells 16 % (0-25) Body Fluid Glucose 115 mg/dL (.) Body Fluid Total Protein 3.8 g/dL (.) Body Fluid Lactate Dehydrogenase 97 IU/L (.) Lactic Acid Level 0.8 mmol/L (0.4-2.0) Troponin I High Sensitivity 15 ng/L (</=54) Other Laboratory Tests 07/25/24 06:23 Brief Hx & Hospital Course: Patient is a 84-year-old male with a past medical history of end-stage renal disease on hemodialysis Friday, , Friday, hypertension, BPH presented to the ED with a chief complaint of shortness of breath and generalized weakness. Patient reported that he started feeling short of breath since 3-4 days ago with slowly worsened and he was feeling weak and dizzy and had a fall without loss of consciousness and with no head injury. Patient denied chest pain, orthopnea, PND, fever, chills, abdominal pain, nausea, vomiting. Chest x- ray showed right-sided moderate pleural effusion, very minimal left-sided pleural effusion. Chest ultrasound showed moderate right-sided pleural effusion. Past medical history: As per HPI Past surgical history: Right tunneled hemodialysis catheter Social history: Lives with and denies smoking, alcohol, drug use Home medications: Simvastatin, finasteride, tamsulosin, sevelamer, temazepam During hospitalization, patient was initially on nasal cannula due to acute hypoxic respiratory failure likely related to pneumonia, chest x-ray also revealed a pleural effusion, a thoracentesis was performed which revealed a 1.8 L of clear yellow fluid, patient remained on nasal cannula about on the later days it has improved and he remained on room air, repeat a chest x-ray revealed reaccumulation of fluid, but he still remained on room air and blood work was stable, route cdl driver was also following. During this time patient received broad-spectrum antibiotics with cefepime and azithromycin. Pleural fluid analysis revealed due to fluid is no exudate, no growth of bacteria was seen and the pleural fluids culture. Patient received hemodialysis every other day. Patient is alert and oriented x3. Patient is saturating 95% on room air and is able to walk to the restroom using his walker feeling mild short of breath. Patient denies chest pain, dizziness, palpitations headache, nausea, vomiting, dizziness, fever. Patient's vitals are stable on examination. Physical examination as below: Gen - no pallor, no icterus, no cyanosis, no clubbing, no LAD, no edema . Skin - Patients skin is warm and dry.. HEENT - normocephalic, atraumatic, moist mucous membranes. Right tunneled hemodialysis catheter. Neck - full ROM, no LAD, no JVD. Pulmonary - breath sounds absent on the right lower side, improved in the midright side, with a right-sided inspiratory crackles heard vesicular breath sounds heard in the left lung and in the right upper lobe. cardiovascular - normal S1,S2 heard. no murmurs heard. peripheral pulses normal radial 2+, pedal 2+. capillary refill normal <2 secs. GI - soft abdomen without tenderness to palpation . no hepatospleenomegaly. Bowel sounds normoactive Neurological - Patient is A/O X 2 . Bilateral upper extremity strength 4/5, bilateral lower extremity strength 4/5, no facial droop, normal speech, no tremor, no sensory deficiets. Discharge diagnosis: Pneumonia with parapneumonic effusion, ESRD, Discharge plan: Patient will be DC home on continue home medications as prescribed Continue cefpodoxime 200 mg p.o. b.i.d. for next three days, azithromycin 250 mg p.o. for next five days Follow in the chest clinic within the next week, follow with PCP, follow with route cdl driver for possible repeat thoracentesis. Continue hemodialysis TTS and follow with Nephrology Counseled on lifestyle modifications, low-salt diet, medical compliance Patient verbalized understanding and agreed with this plan, we spent over 30 minutes explaining the plan. Goals of care discussed with the patient for over 25 minutes. Full code Plan discussed with Dr. Arteaga Consults/Reason for consult Rehab Trainer was consulted due to acute hypoxic respiratory failure and pleural effusion Operations or Procedures [place] [address] Ph: [phone] PATIENT: SADIE BACK ACCT: [id number] : 1940 LOC: [facility] ROOM/ROOM: [facility] AGE/SEX: 84/M ADM STATUS: ADM IN ADM DATE: 07/20/24 UNIT: [id number] HEALTH INFORMATION MANAGEMENT PROCEDURE NOTE - DV :[id number] Signed ORDERING PHYSICIAN: PROCEDURE(s): ORDER NUMBER(s): , ACCESSION NUMBER(s): Procedure - Ultrasound-guided thoracentesis procedure note: Physician: Dr Sommer Cazares Assisted: Jhajj Date: 07/21/24 Time: 2932 Consent: Consent was obtained from patient prior to procedure. Indication, risks, and benefits were explained at length. Procedure summary: A time out was performed and a chest x-ray was reviewed prior to procedure. The appropriate site was confirmed and marked. My hands were washed immediately prior to the procedure, I wore a surgical cap, mask with protective eyewear, sterile gown and sterile gloves throughout the procedure. The patient was prepped and draped in a sterile manner using chlorhexidine scrub after the appropriate level was percussed and confirmed by ultrasound. 1% lidocaine was used to anesthetize the skin, subcutaneous tissue, superior aspect of the rib periosteum and parietal pleura. A finder needle was then introduced over the superior aspect of the rib to locate the pleural fluid; yellow fluid was aspirated. Thoracentesis needle was then introduced through the skin incision into the pleural space using negative aspiration pressure. The thoracentesis catheter was then threaded without difficulty. 1850 mL's of yellow colored fluid were removed without difficulty. The catheter was then removed. No immediate complications were noted during the procedure. A postprocedure chest x-ray is pending at the time of this note. The pleural fluid will be sent for cultures and cytology. Estimated blood loss is less than 5 mL's. CPT: 21536 ROD CAZARES MD Jul 21, 2024 18:49 DICTATED BY: ROD CAZARES MD DICATED DATE/TIME: 07/21/241848 SIGNED BY: ROD CAZARES MD <<Signature on File>> SIGNED DATE/TIME: 07/21/241848 CC: [place] [address] Ph: [phone] DIAGNOSTIC IMAGING Diagnostic Imaging Report : [id number] Signed PATIENT: SADIE BACK ACCT: [id number] UNIT: [id number] : 1940 LOC: ER ROOM / BED: / AGE / SEX: 84 / M ADM STATUS: REG ER SERVICE 141 ORDERING PHYSICIAN: PETERSON DOSHI MD PROCEDURE(s): CXRP - CHEST PORTABLE REASON: fall, ams ORDER NUMBER(s): [id number], ACCESSION NUMBER(s): [id number] CHEST RADIOGRAPH Indication: fall, ams Technique: Single frontal view of the chest was obtained Comparison: None FINDINGS: Lines and Tubes: Right tunneled hemodialysis catheter. Lungs: Right lower lobe opacity. Pleura: Moderate right pleural effusion. No pneumothorax. Cardiomediastinal contours: Unremarkable Bones: No acute osseous abnormality. IMPRESSION: Moderate right pleural effusion. Right lower lobe opacity. ATED BY: URI KNAPP MD DICTATED DATE/TIME: 07/20/241448 SIGNED BY: URI KNAPP MD SIGNED DATE/TIME: 07/20/241448 CC: [place] [address] Ph: [phone] DIAGNOSTIC IMAGING Diagnostic Imaging Report : [id number] Signed PATIENT: SADIE BACK ACCT: [id number] UNIT: [id number] : 1940 LOC: ER ROOM / BED: / AGE / SEX: 84 / M ADM STATUS: REG ER SERVICE 13 ORDERING PHYSICIAN: PETERSON DOSHI MD PROCEDURE(s): HWOCT - HEAD WITHOUT CONTRAST REASON: fall, ams ORDER NUMBER(s): [id number], ACCESSION NUMBER(s): [id number] EXAM: CT HEAD WITHOUT CONTRAST HISTORY: fall, ams COMPARISON: None TECHNIQUE: Axial images of the head were obtained and reformatted in coronal and sagittal planes. All CT scans at this medical facility are performed using dose modulation techniques as appropriate to a performed exam including the following: Automated exposure control was utilized; adjustment of the MA and/or KV according to patient size; and use of iterative reconstruction technique. CT Dose: CTDI volume is 53.22 mGy. Dose-length product is 959.65 mGy*cm FINDINGS: There is age concordant generalized parenchymal atrophy. There are patchy hypodense areas in the supratentorial white matter compatible with chronic microvascular ischemic changes. There is no evidence of acute intracranial hemorrhage, mass, mass effect midline shift. There is no hydrocephalus or extra- axial fluid collection. Berger-white matter differentiation is maintained.. There is partial opacification of the right mastoid air cells. The paranasal sinuses are clear. The calvarium is intact.. IMPRESSION: 1. No acute intracranial process. HS:Y ATED BY: JULIEN JONES MD DICTATED DATE/TIME: 07/20/241446 SIGNED BY: JULIEN JONES MD SIGNED DATE/TIME: 07/20/241446 CC: [place] [address] Ph: [phone] DIAGNOSTIC IMAGING Diagnostic Imaging Report : [id number] Signed PATIENT: SADIE BACK ACCT: [id number] UNIT: [id number] : 1940 LOC: [facility] ROOM / BED: [address] [place] [address] / A AGE / SEX: 84 / M ADM STATUS: ADM IN SERVICE 182 ORDERING PHYSICIAN: ROD CAZARES MD PROCEDURE(s): CHSTU - CHEST ULTRASOUND REASON: Evaluation for amount of right pleural effusion for thora ORDER NUMBER(s): [id number], ACCESSION NUMBER(s): [id number] Bilateral Chest Sonogram Clinical history: Evaluation for amount of right pleural effusion for thora Technique: Limited sonographic evaluation of the right and left chest was performed. Findings/Impression: Moderate right pleural effusion. ATED BY: CAPO SHEARER MD DICTATED DATE/TIME: 07/20/241843 SIGNED BY: CAPO SHEARER MD SIGNED DATE/TIME: 07/20/241843 CC: [place] [address] Ph: [phone] DIAGNOSTIC IMAGING Diagnostic Imaging Report : [id number] Signed PATIENT: SADIE BACK ACCT: [id number] UNIT: [id number] : 1940 LOC: [facility] ROOM / BED: [address] [place] [address] AGE / SEX: 84 / M ADM STATUS: ADM IN SERVICE 181 ORDERING PHYSICIAN: RON MULLEN PROCEDURE(s): CXR1 - CHEST XRAY 1 VIEW REASON: s/p right thora ORDER NUMBER(s): [id number], ACCESSION NUMBER(s): [id number] EXAM: XY CHEST XRAY 1 VIEW TECHNIQUE: Single frontal chest radiograph CLINICAL HISTORY: s/p right thora COMPARISON: XY CHEST PORTABLE on DOS: 07/20/24 Findings/Impression: Frontal chest radiograph demonstrates no acute osseous or superficial soft tissue abnormalities. Tunneled right sided HD catheter terminates near the superior cavoatrial junction. The trachea is midline. The cardiac silhouette and mediastinum are within normal limits. Small right pleural effusion with compressive atelectasis, improved from prior. A superimposed infectious process is not excluded. No pneumothorax. ATED BY: NAHED MAZARIEGOS DO DICTATED DATE/TIME: 07/21/241853 SIGNED BY: NAHED MAZARIEGOS DO SIGNED DATE/TIME: 07/21/241853 CC: [place] [address] Ph: [phone] DIAGNOSTIC IMAGING Diagnostic Imaging Report : [id number] Signed PATIENT: SADIE BACK ACCT: [id number] UNIT: [id number] : 1940 LOC: [facility] ROOM / BED: [address] [place] [address] AGE / SEX: 84 / M ADM STATUS: ADM IN SERVICE 0400 ORDERING PHYSICIAN: RON MULLEN RESIDENT PROCEDURE(s): CXR1 - CHEST XRAY 1 VIEW REASON: Shortness of breath ORDER NUMBER(s): [id number], ACCESSION NUMBER(s): [id number] CHEST RADIOGRAPH Indication: Shortness of breath Technique: Single frontal view of the chest was obtained Comparison: XY CHEST XRAY 1 VIEW on DOS: 07/21/24 FINDINGS: Lines and Tubes: There is a right hemodialysis catheter with its tip terminating in the superior vena cava. Lungs: Patchy right lung opacities.. Pleura: No effusion. No pneumothorax. Cardiomediastinal contours: Unremarkable Bones: No acute osseous abnormality. IMPRESSION: 1. Right lung opacities which may reflect pneumonia in the appropriate clinical setting. ATED BY: ADELINA ROONEY MD DICTATED DATE/TIME: 07/23/24541 SIGNED BY: ADELINA ROONEY MD SIGNED DATE/TIME: 07/23/24541 CC: Condition at Discharge: Guarded Final Diagnosis/Problems List # Acute hypoxic respiratory failure likely due to pneumonia with parapneumonic Pleural effusion # right pleural effusion, likely parapneumonic, Fluid overload due to ESRD ? d/t pneumonia likely exudative # pneumonia likely due to Gram +/-bacteria # end-stage renal disease on hemodialysis Discharge Disposition: Home Discharge Instruct/Medications Diet: Renal Activity: No Restrictions, As Tolerated Follow Up/Referral: fu with pcp in 1 week Medications: continue home meds as prescribed continue cefpodoxime 200mg po bid for 3 more days Discharge Statement: "Patient was advised to return to the ER or call 911 if any headaches, dizziness, shortness of breath, chest pain, abdominal pain, bleeding, fevers, or worsening of medical condition. Patient was counseled about treatment plan, medications, possible side effects, patientverbalized understanding. All questions were answered to the best of my ability. This discharge took greater then 30 minutes in planning, reviewing documentation, counseling the patient, and discussing with other team members." ASSESSMENT ASSESSMENT Assessment pneumonia DEBORAH CARRASCO RESIDENT Jul 25, 2024 15:04
--- NOTE | 2024-07-25 23:08 | DVHPN2 ---
Progress Note - Dictate Date Seen: Jul 25, 2024 Has the PT tested + for MRSA If YES, has PT been informed?: No Medical Necessity Reason Pt with a Central, PICC or Fol: No Subjective Patient seen and examined at bedside Breathing comfortably on room air. No new complaints vital signs Vital Sign Date Time Temp Pulse Resp B/P (MAP) Pulse Ox O2 Delivery O2 Flow Rate FiO2 07/25/24 14:51 98.0 100 20 98 07/25/24 13:00 143/57 (85) 07/25/24 10:00 Room Air* 0 21 Total Intake and Output 07/24/24 07/24/24 07/25/24 15:00 23:00 07:00 Intake Total 400 ml 400 ml Output Total 250 ml Balance 400 ml 150 ml objective Gen.: Patient lying in bed in no apparent distress. Breathing on room air. Head: Normocephalic, atraumatic. Eyes: EOMI/PERRLA. Ears: Normal hearing. Normal anatomy. Neck/trachea: Trachea midline, supple. Nose: Normal external anatomy. Mouth: Moist mucous membranes. Chest: Decreased air entry bilaterally. No wheezing or rhonchi. Cardiovascular: Positive S1, positive S2. Regular rate and rhythm. Abdomen: Positive bowel sounds in all 4 quadrants. Soft, non-tender, non- distended. : Deferred. Rectal: Deferred. Skin: Warm, dry. Intact. Extremities: 2+ radial pulses bilaterally. No lower extremity edema. Neuro: Awake, alert, oriented x3. No gross motor or sensory deficits. Cranial nerves II through XII intact. Gait not assessed. laboratory and microbiology Laboratory Tests 07/25/24 06:23 Test 07/25/24 06:23 Range/Units Serum Glucose 89 74-106 mg/dL Assessment/Plan Impression: Acute hypoxic respiratory failure Right lower lobe pneumonia, likely Gram-negative Pleural effusion Atelectasis Status post fall with no significant injury Obesity with a BMI of 32.2 End-stage renal disease on hemodialysis Events: Breathing comfortably on room air. No respiratory distress. Complete antibiotics IS. HD per Nephrology Monitor renal function. Monitor electrolytes. Supplement as necessary. Patient is stable for discharge from the pulmonary standpoint. Follow up in Pulmonary Clinic. Recurrent pleural effusion may require weekly drainage. Labs and imaging reviewed. Rest of plan as noted below. Plan: Chest x-ray imaging report reviewed. Possible right pleural effusion. Pulmonary edema. Atelectasis, compressive. Chest ultrasound demonstrated [id number] right pleural effusion. S/p right thoracentesis w/ drainage of 1850 mL from right pleural space on 07/21. See separate procedure note for details. Supplemental oxygen PRN Keep O2 saturation above 92%. Bronchodilators PRN Antibiotics, cefepime and azithromycin Send sputum for Gram stain and culture if able to produce. ESRD, on hemodialysis Hemodialysis per nephrology Monitor renal function Monitor electrolytes. Supplement as necessary Monitor ins and outs Accu-Cheks, insulin sliding scale DVT prophylaxis Prognosis: Guarded given multiple comorbidities. Rest of plan per hospitalist and other consultants. Thank you Dr. Padilla for allowing me to participate in this patient's care. Further recommendations will depend on patient's clinical course. Please do not hesitate to contact me if you have any questions or concerns. This medical document was created using an electronic medical record system with [employer] dictation system. Although this document has been carefully reviewed, there may still be some phonetic and typographical errors. These areas are purely typographical due to imperfections of the software programs, and do not reflect any compromise in the patient's medical care. Plan discussed with: Patient, Other (CIARRA Garcia) ROD LOPEZ MD Jul 25, 2024 23:08
[2024-07-26] MEDS ORDERED: SODIUM CHL 0.9% 1000 ML BAG XX ONE (07:00)
== END 2024-07-25 15:55 | disposition hospice, home (50) | DRG 177 ==
LOC: EDBD 13:58 → ER 13:58 → OVERFLOW 16:37 → ER 16:42 → WEST WING 21:13
PROVIDERS: ADMIT Student in an Organized Health Care Education/Training Program; ATTEND Student in an Organized Health Care Education/Training Program
PROC: 0W993ZX Drainage of Right Pleural Cavity, Percutaneous Approach, Diagnostic (ICD-10-PCS; principal; 2024-07-21)
PROC: 5A1D70Z Performance of Urinary Filtration, Intermittent, Less than 6 Hours Per Day (ICD-10-PCS; 2024-07-22)
PROC: 5A1D70Z Performance of Urinary Filtration, Intermittent, Less than 6 Hours Per Day (ICD-10-PCS; 2024-07-24)
DX: J15.69 Pneumonia due to other Gram-negative bacteria (principal); J96.01 Acute respiratory failure with hypoxia; N18.6 End stage renal disease; J90 Pleural effusion, not elsewhere classified; I12.0 Hypertensive chronic kidney disease with stage 5 chronic kidney disease or end stage renal disease; E87.70 Fluid overload, unspecified; J15.9 Unspecified bacterial pneumonia; D63.1 Anemia in chronic kidney disease; Z51.5 Encounter for palliative care; E78.5 Hyperlipidemia, unspecified; E66.9 Obesity, unspecified; Z68.32 Body mass index [BMI] 32.0-32.9, adult; Z99.2 Dependence on renal dialysis
CPT/HCPCS: 32555; 36415; 70450; 71045; 76604; 80048; 80053; 80061; 82962; 83036; 83605; 83986; 84100; 84484; 85025; 87040; 87205; 87340; 89051; 90935; 93005; 93306; 96365; 97163; 99291; G0378; J0692; J1642; J1815

== ENCOUNTER 2025-01-15 13:08 | Inpatient (IN) | payer OTHER ==
[~2025-01-15] VITALS: Ht 172.7 cm; Wt 70.8 kg
[~2025-01-15 13:08] MED LIST: AZIT-185 PO; CEFP200T15 PO
--- NOTE | 2025-01-15 13:29 | ED.PDOC ---
History of Present Illness HPI Comments 84 year old male MICHELLE presents to the ED with chief complaint of syncope/weakness. EMS reports that the patient's had witnessed the patient experience a syncopal episode today along with the patient having increased fatigue and generalized weakness for the past few days. EMS relays that the patient had no injuries reported from his syncopal episode. EMS states patient had missed dialysis today. Patient denies any chest pain, SOB, dizziness, headache, N/V/D, abdominal pain, or fever. Time Seen by MD: 13:27 Reviewed Notes: Nurses Notes, Slot Tag Inserter Notes, Medications, Allergies Allergies: Coded Allergies: NO KNOWN ALLERGIES (Unverified , 04/27/18) Home Meds Active Scripts Cefpodoxime Proxetil (Cefpodoxime Proxetil) 200 Mg Tab, 1 TAB PO BID for 3 Days, #6 TAB Prov:DEBORAH CARRASCO RESIDENT 07/25/24 Azithromycin (ZITHROMAX TABLET) 250 Mg Tb, 250 MG PO DAILY for 5 Days, #5 TAB Prov:DEBORAH CARRASCO RESIDENT 07/25/24 Information Source: Patient, Emergency Med Personnel Mode of Arrival: Ambulatory Severity: Moderate Timing: Hours Duration: Since onset Prehospital treatment: None Past Medical History PAST MEDICAL HISTORY: Cancer, ESRD, High Lipids Surgical History: Denies all surgeries Family History Family History: Reviewed,noncontributory to illness, Unknown Social History Smoker: Non-Smoker Alcohol: Occasionally Drugs: Denies Drug Use Lives In: Home Constitutional: reports: fatigue, weakness; denies: chills, diaphoresis, fever, malaise, sweats, others EENTM: denies: blurred vision, double vision, ear bleeding, ear discharge, ear drainage, ear pain, ear ringing, eye pain, eye redness, hearing loss, mouth pain, mouth swelling, nasal discharge, nose bleeding, nose congestion, nose pain, photophobia, tearing, throat pain, throat swelling, voice changes, others Respiratory: denies: cough, hemoptysis, orthopnea, SOB at rest, shortness of breath, SOB with excertion, stridor, wheezing, others Cardiovascular: reports: syncope; denies: chest pain, dizzy spells, diaphoresis, Dyspnea on exertion, edema, irregular heart beat, left arm pain, lightheadedness, palpitations, PND, others Gastrointestinal: denies: abdomen distended, abdominal pain, blood streaked bowels, constipated, diarrhea, dysphagia, difficulty swallowing, hematemesis, melena, nausea, poor appetite, poor fluid intake, rectal bleeding, rectal pain, vomiting, others Genitourinary: denies: burning, dysuria, flank pain, frequency, hematuria, incontinence, penile discharge, penile sore, pain, testicle pain, testicle swelling, urgency, others Neurological: denies: dizziness, fainting, headache, left sided numbness, left sided weakness, numbness, paresthesia, pre-existing deficit, right sided numbness, right sided weakness, seizure, speech problems, tingling, tremors, weakness, others Musculoskeletal: denies: back pain, gout, joint pain, joint swelling, muscle pain, muscle stiffness, neck pain, others Integumetry: denies: bruises, change in color, change in hair/nails, dryness, laceration, lesions, lumps, rash, wounds, others Allergic/Immunocompromised: denies: Difficulty Healing, Frequent Infections, Hives, Itching, others Hematologic/Lymphatic: denies: anemia, blood clots, easy bleeding, easy bruising, swollen glands, others Endocrine: denies: excessive hunger, excessive sweating, excessive thirst, excessive urination, flushing, intolerance to cold, intolerance to heat, u nexplained weight gain, unexplained weight loss, others Psychiatric: denies: anxiety, bipolar disorder, depression, hopeless, panic disorder, schizophrenia, sleepless, suicidal, others All Other Systems: Reviewed and Negative Physical Exam General Appearance: Normal, Other (Patient with altered level of consciousness missed his dialysis) HEENT: Normal ENT Inspection, PERRL/EOMI, TMs Normal, Other (Dry mucosa) Neck: Full Range of Motion, Non-Tender, Normal, Normal Inspection Respiratory: Chest Non-Tender, Lungs Clear, No Accessory Muscle Use, No Respiratory Distress, Normal Breath Sounds Cardiovascular: No Edema, No JVD, No Murmur, No Gallop, Normal Peripheral Pulses, Regular Rate/Rhythm Breast Exam: Deferred Gastrointestinal: No Organomegaly, Non Tender, No Pulsatile Mass, Normal Bowel Sounds, Soft Genitalia: Deferred Pelvic: Deferred Rectal: Deferred Extremities: No calf tenderness, Normal capillary refill, Normal inspection, Normal range of motion, Non-tender, No pedal edema Musculoskeletal : Apperance: Normal Neurologic: division director II-XII nml as Tested, Depressed Affect, Disoriented, Dizziness, Fainting, No Motor Deficits, Normal Affect, Normal Mood, No Sensory Deficits, Speech Problem Cerebellar Function: Normal, NOT DONE Reflexes: Normal, None Skin: Dry, Normal Color, Warm Peripheral Pulses: 1+ carotid (R), 1+ carotid (L) Lymphatic: No Adenopathy Was a procedure done? Was a procedure done?: No Differential Dx Considerations may include: Dialysis patient with a most probably uremia syndrome and generalized weakness dehydration X-Ray, Labs, Meds, VS Vital Signs Date Time Temp Pulse Resp B/P (MAP) Pulse Ox O2 Delivery O2 Flow Rate FiO2 01/15/25 13:46 67 01/15/25 13:32 97.7 68 16 162/84 (110) 94 97.7 01/15/25 13:30 65 15 94 Room Air* 0 21 01/15/25 13:20 97.1 64 14 150/74 (99) 94 97.1 Lab Test 01/15/25 13:40 Range/Units White Blood Count 3.9 L 4.4-10.8 10^3/uL Red Blood Count 3.21 L 4.5-5.90 10^6/uL Hemoglobin 11.2 L 13.5-17.5 g/dL Hematocrit 32.5 L 41.0-53.0 % Mean Corpuscular Volume 101.3 H 80.0-100.0 fL Mean Corpuscular Hemoglobin 34.9 H 28.0-32.0 pg Mean Corpuscular Hemoglobin Concent 34.4 32.0-36.0 g/dL Red Cell Distribution Width 17.4 H 11.8-14.3 % Platelet Count 175 140-450 10^3/uL Mean Platelet Volume 6.8 L 6.9-10.8 fL Neutrophils (%) (Auto) 63.0 37.0-80.0 % Lymphocytes (%) (Auto) 21.9 10.0-50.0 % Monocytes (%) (Auto) 13.6 H 0.0-12.0 % Eosinophils (%) (Auto) 1.1 0.0-7.0 % Basophils (%) (Auto) 0.4 0.0-2.0 % Neutrophils # (Auto) 2.4 1.6-8.6 10 ^3/uL Lymphocytes # (Auto) 0.9 0.4-5.4 10 ^3/uL Monocytes # (Auto) 0.5 0-1.3 10 ^3/uL Eosinophils # (Auto) 0 0-0.8 10 ^3/uL Basophils # (Auto) 0 0-0.2 10 ^3/uL Nucleated Red Blood Cells 0.0 % Sodium Level 134 L 136-145 mmol/L Potassium Level 3.9 3.5-5.1 mmol/L Chloride Level 94 L 98-107 mmol/L Carbon Dioxide Level 31 20-31 mmol/L Anion Gap 9 5-15 Blood Urea Nitrogen 30 H 9-23 mg/dL Creatinine 6.25 H 0.700-1.30 mg/dL Glomerular Filtration Rate Calc 8 >90 mL/min BUN/Creatinine Ratio 4.8 L 10.0-20.0 Serum Glucose 88 74-106 mg/dL Calcium Level 9.3 8.7-10.4 mg/dL Magnesium Level 2.0 1.6-2.6 mg/dL Total Bilirubin 0.7 0.2-1.0 mg/dL Aspartate Amino Transferase (AST) 13 13-40 U/L Alanine Aminotransferase (ALT) 11 7-40 U/L Alkaline Phosphatase 55 46-116 U/L Troponin I High Sensitivity 17 </=54 ng/L Total Protein 6.1 5.7-8.2 g/dL Albumin 3.8 3.2-4.8 g/dL Plasma/Serum Blood Alcohol < 3.0 <10 mg/dL Current Medications Medications (Trade) Dose Ordered Sig/Zeferino Route Start Time Stop Time Status Last Admin Sodium Chloride 1,000 ml @ 1,000 mls/hr Q1H ONCE IVB 01/15/25 13:30 01/15/25 14:29 DC 01/15/25 13:55 Ceftriaxone Sodium 50 ml @ 100 mls/hr ONCE ONCE IV 01/15/25 16:15 01/15/25 16:44 01/15/25 16:34 Chest XR: FINDINGS: LUNGS AND PLEURAL SPACES: Right basilar atelectasis or pneumonia. Right pleural effusion. HEART: Cardiomegaly with mild congestion. MEDIASTINUM: Unremarkable. Normal mediastinal contour. BONES/JOINTS: Unremarkable. No acute fracture. TUBES, LINES AND DEVICES: Right internal jugular central venous catheter tip in the superior vena cava. OTHER FINDINGS: . . IMPRESSION: 1. Right basilar atelectasis or pneumonia. 2. Cardiomegaly with mild congestion. 3. Right pleural effusion. X-Ray, Labs, Meds, VS Comment COURSE IN THE EMERGENCY DEPARTMENT EVENTFUL PATIENT CAME IN BECAUSE OF GENERALIZED WEAKNESS AND ALTERED LEVEL OF CONSCIOUSNESS PATIENT HAS HISTORY OF RENAL FAILURE ON DIALYSIS MISSED HIS DIALYSIS LAST TREATMENT PATIENT CAME BY AMBULANCE CHEST X-RAY SHOWS PULMONARY VASCULAR CONGESTION WITH CARDIOMEGALY AND RIGHT BASAL PNEUMONIA WITH A ALSO RIGHT PLEURAL EFFUSION EKG SHOWS ATRIAL FIBRILLATION AT 67 WITH LEFT AXIS DEVIATION RIGHT BUNDLE-BRANCH BLOCK CBC 3960 3% NEUTROPHILS H&H 11 AND 32 WITH MICROCYTOSIS BLOOD SUGAR IS NORMAL THE GFR IS EIGHT MAGNESIUM IS 2.0 TROPONIN 17 PATIENT WILL BE ADMITTED FOR FURTHER CARE NEED DIALYSIS Images Reviewed?: Images reviewed and evaluated by me Time of 1ST Reevaluation: 14:27 Reevaluation 1ST: Unchanged Time of 2ND Reevaluation: 16:04 Reevaluation 2ND: Unchanged Patient Education/Counseling: Diagnosis, Treatment, Prognosis Family Education/Counseling: Diagnosis, Treatment, Prognosis, No Family Present Departure 1 Departure Time of Disposition: 16:06 Impression: Primary Impression: Altered mental status Qualified Codes: R40.1 - Stupor Additional Impressions: Right lower lobe pneumonia Qualified Codes: J18.9 - Pneumonia, unspecified organism End stage renal failure on dialysis Anemia in chronic kidney disease Qualified Codes: N18.6 - End stage renal disease; D63.1 - Anemia in chronic kidney disease; Z99.2 - Dependence on renal dialysis Atrial fibrillation Qualified Codes: I48.19 - Other persistent atrial fibrillation Disposition: ADMITTED INPATIENT Admit to: [facility] Condition: Serious Critical Care Note Critical Care Time?: No Stability Stability form required: Yes Unstable for transfer: Telemetry monitoring (Telemetry monitoring required), Requires medication (Requires Med for stabilization) Heart Score Heart Score: Heart Score Response (Comments) Value History Slightly Suspicious 0 EKG Repolarization Disturb 1 Age >65 2 Risk Factors >3 or Hx ASHD 2 Troponin Normal limit 0 Total 5 I personally scribed for BRENDA REID MD ([email or web address]) on 01/15/25 at 13:29. Electronically submitted by Orlin Gauthier ([email or web address]). I personally scribed for BRENDA REID MD ([email or web address]) on 01/15/25 at 14:18. Electronically submitted by Orlin Gauthier ([email or web address]). BRENDA REID MD January 15, 2025 13:29
[2025-01-15 13:30] VITALS: PULSE 65; RESP 15; O2SAT 94
[2025-01-15 13:50] LABS: Basophils # (auto) 0 10 ^3/uL (0-0.2); Monocytes # (auto) 0.5 10 ^3/uL (0-1.3); Neutrophils # (auto) 2.4 10 ^3/uL (1.6-8.6); Red Cell Distribution Width 17.4 % (11.8-14.3)
[2025-01-15 13:51] LABS: Basophils % (auto) 0.4 % (0.0-2.0); Eosinophils # (auto) 0 10 ^3/uL (0-0.8); Eosinophils % (auto) 1.1 % (0.0-7.0); Hematocrit 32.5 % (41.0-53.0); Hemoglobin 11.2 g/dL (13.5-17.5); Lymphocytes # (auto) 0.9 10 ^3/uL (0.4-5.4); Lymphocytes % (auto) 21.9 % (10.0-50.0); Mean Corpuscular Hemoglobin 34.9 pg (28.0-32.0); Mean Corpuscular Hgb Conc. 34.4 g/dL (32.0-36.0); Mean Corpuscular Volume 101.3 fL (80.0-100.0); Monocytes % (auto) 13.6 % (0.0-12.0); Platelet Count (auto) 175 10^3/uL (140-450); Red Blood Cells 3.21 10^6/uL (4.5-5.90); White Blood Cell 3.9 10^3/uL (4.4-10.8)
--- NOTE | 2025-01-15 13:54 | DVH ---
EXAM: XR Chest, 1 View CLINICAL INDICATION: aloc TECHNIQUE: Frontal view of the chest. COMPARISON: XY CHEST XRAY 1 VIEW on DOS: 07/23/24, XY CHEST XRAY 1 VIEW on DOS: 07/21/24, XY CHEST PORTABLE on DOS: 07/20/24 FINDINGS: LUNGS AND PLEURAL SPACES: Right basilar atelectasis or pneumonia. Right pleural effusion. HEART: Cardiomegaly with mild congestion. MEDIASTINUM: Unremarkable. Normal mediastinal contour. BONES/JOINTS: Unremarkable. No acute fracture. TUBES, LINES AND DEVICES: Right internal jugular central venous catheter tip in the superior vena c elida. OTHER FINDINGS: . . IMPRESSION: 1. Right basilar atelectasis or pneumonia. 2. Cardiomegaly with mild congestion. 3. Right pleural effusion.
[2025-01-15] MEDS: SODIUM CHLORIDE 0.9% 1,000 ML IVB ONE (13:55)
[2025-01-15 14:08] LABS: Alanine Aminotransferase 11 U/L (7-40); Albumin 3.8 g/dL (3.2-4.8); Alkaline Phosphatase 55 U/L (46-116); Anion Gap 9 (5-15); Aspartate Aminotransferase 13 U/L (13-40); BUN/Creatinine Ratio 4.8 (10.0-20.0); Calcium 9.3 mg/dL (8.7-10.4); Carbon Dioxide 31 mmol/L (20-31); Glucose 88 mg/dL (74-106); Potassium 3.9 mmol/L (3.5-5.1); Total Protein 6.1 g/dL (5.7-8.2)
[2025-01-15 14:09] LABS: Bilirubin, Total 0.7 mg/dL (0.2-1.0); Blood Alcohol < 3.0 mg/dL (<10); Blood Urea Nitrogen 30 mg/dL (9-23); Chloride 94 mmol/L (98-107); Sodium 134 mmol/L (136-145)
[2025-01-15] MEDS: cefTRIAXone 1GM/50ML D5W 50 ML IV ONE (16:34)
[2025-01-15] MEDS ORDERED: NITROGLYCERIN 0.4 MG SL TAB SL PRN (17:30)
[2025-01-15] MEDS ORDERED: MORPHINE SULFATE INJ 2 MG/ml SYRG IV PRN (17:30)
--- NOTE | 2025-01-15 18:07 | DVHHP2 ---
History of Present Illness Reason for Visit: Syncope History of Present Illness This is a 84 year old male with history of ESRD, hyperlipidemia and cancer who presents to the ED with chief complaint of syncope/weakness. EMS reports that the patient's had witnessed the patient experience a syncopal episode today along with the patient having increased fatigue and generalized weakness for the past few days. EMS relays that the patient had no injuries reported from his syncopal episode. EMS states patient had missed dialysis today. The patient is concerned about his symptoms and would like to be further evaluated and treated. The patient will be admitted under hospitalist care to the telemetry unit for continuous monitoring. The Patient denies any dizziness, headache, blurred vision, chest pain, SOB, dizziness, headache, N/V/D, abdominal pain, or fever. The plan has been discussed with the patient in which all questions concerns have been addressed. Cardiovascular: hyperipidemia Renal/: Chronic renal failure Past Medical History Cancer Past Surgical History Unknown Family History: None Smoke: No ALCOHOL: occassional Drugs: None Lives: with Family Domestic Violence: Neg Review of Systems Constitutional: Yes: Weakness Allergies: Coded Allergies: NO KNOWN ALLERGIES (Unverified , 04/27/18) Medications Current Medications Medications Dose Ordered Sig/Zeferino Route Start Time Stop Time Status Last Admin Dose Admin Acetaminophen 650 mg Q6HP PRN PO 01/15/25 17:30 Nitroglycerin 0.4 mg Q5MINP PRN SL 01/15/25 17:30 Morphine Sulfate 2 mg Q30M PRN IV 01/15/25 17:30 Exam Vital Signs Vital Signs Date Time Temp Pulse Resp B/P (MAP) Pulse Ox O2 Delivery O2 Flow Rate FiO2 01/15/25 13:46 67 01/15/25 13:32 97.7 16 162/84 (110) 94 97.7 01/15/25 13:30 Room Air* 0 21 General Appearance: Alert, Oriented X3, Cooperative, No acute distress HEENT: Atraumatic, PERRLA, Mucous membr. moist/pink Respiratory: Clear to auscultation, Normal air movement Cardiovascular: Normal S1, Normal S2, No murmurs Abdominal: Normal bowel sounds, Soft, No tenderness, No hepatospenomegaly, No masses Extremities: No clubbing, No cyanosis, No edema, Normal pulses, No tenderness/swelling Skin: No rashes, No breakdown Neuro: Normal speech, Normal tone, Sensation intact Psych/Mental Status: Mental status NL, Mood NL Labs/Xrays Labs Test 01/15/25 13:40 Range/Units White Blood Count 3.9 L 4.4-10.8 10^3/uL Red Blood Count 3.21 L 4.5-5.90 10^6/uL Hemoglobin 11.2 L 13.5-17.5 g/dL Hematocrit 32.5 L 41.0-53.0 % Mean Corpuscular Volume 101.3 H 80.0-100.0 fL Mean Corpuscular Hemoglobin 34.9 H 28.0-32.0 pg Mean Corpuscular Hemoglobin Concent 34.4 32.0-36.0 g/dL Red Cell Distribution Width 17.4 H 11.8-14.3 % Platelet Count 175 140-450 10^3/uL Mean Platelet Volume 6.8 L 6.9-10.8 fL Neutrophils (%) (Auto) 63.0 37.0-80.0 % Lymphocytes (%) (Auto) 21.9 10.0-50.0 % Monocytes (%) (Auto) 13.6 H 0.0-12.0 % Eosinophils (%) (Auto) 1.1 0.0-7.0 % Basophils (%) (Auto) 0.4 0.0-2.0 % Neutrophils # (Auto) 2.4 1.6-8.6 10 ^3/uL Lymphocytes # (Auto) 0.9 0.4-5.4 10 ^3/uL Monocytes # (Auto) 0.5 0-1.3 10 ^3/uL Eosinophils # (Auto) 0 0-0.8 10 ^3/uL Basophils # (Auto) 0 0-0.2 10 ^3/uL Nucleated Red Blood Cells 0.0 % Sodium Level 134 L 136-145 mmol/L Potassium Level 3.9 3.5-5.1 mmol/L Chloride Level 94 L 98-107 mmol/L Carbon Dioxide Level 31 20-31 mmol/L Anion Gap 9 5-15 Blood Urea Nitrogen 30 H 9-23 mg/dL Creatinine 6.25 H 0.700-1.30 mg/dL Glomerular Filtration Rate Calc 8 >90 mL/min BUN/Creatinine Ratio 4.8 L 10.0-20.0 Serum Glucose 88 74-106 mg/dL Calcium Level 9.3 8.7-10.4 mg/dL Magnesium Level 2.0 1.6-2.6 mg/dL Total Bilirubin 0.7 0.2-1.0 mg/dL Aspartate Amino Transferase (AST) 13 13-40 U/L Alanine Aminotransferase (ALT) 11 7-40 U/L Alkaline Phosphatase 55 46-116 U/L Troponin I High Sensitivity 17 </=54 ng/L Total Protein 6.1 5.7-8.2 g/dL Albumin 3.8 3.2-4.8 g/dL Plasma/Serum Blood Alcohol < 3.0 <10 mg/dL ORDERING PHYSICIAN: BRENDA REID MD PROCEDURE(s): CXRP - CHEST PORTABLE REASON: aloc ORDER NUMBER(s): [id number], ACCESSION NUMBER(s): [id number] EXAM: XR Chest, 1 View CLINICAL INDICATION: aloc TECHNIQUE: Frontal view of the chest. COMPARISON: XY CHEST XRAY 1 VIEW on DOS: 07/23/24, XY CHEST XRAY 1 VIEW on DOS: 07/21/24, XY CHEST PORTABLE on DOS: 07/20/24 FINDINGS: LUNGS AND PLEURAL SPACES: Right basilar atelectasis or pneumonia. Right pleural effusion. HEART: Cardiomegaly with mild congestion. MEDIASTINUM: Unremarkable. Normal mediastinal contour. BONES/JOINTS: Unremarkable. No acute fracture. TUBES, LINES AND DEVICES: Right internal jugular central venous catheter tip in the superior vena cava. OTHER FINDINGS: . . IMPRESSION: 1. Right basilar atelectasis or pneumonia. 2. Cardiomegaly with mild congestion. 3. Right pleural effusion. ATED BY: MARIANNA TOURE MD DICTATED DATE/TIME: 01/15/25 1351 SIGNED BY: MARIANNA TOURE MD SIGNED DATE/TIME: 01/15/25 135 CC: Assessment/Plan Assessment/Plan Syncope--presents to ED with chief complaint of syncope/generalized weakness EMS report patient witnessed patient experiencing syncopal episode without loss of consciousness Patient had missed dialysis today Admit to telemetry unit for continuous monitoring Reviewed CBC hemoglobin 11.2 Reviewed BMP potassium 3.9, Mag 2.0 ETOH negative Reviewed chest x-ray which shows right pleural effusion/right basilar atelectasis or pneumonia IV ceftriaxone Carotid Doppler study pending We will consider to consult neurologist if further evaluation and recommendation or needed ESRD on dialysis Friday//Friday Consult Dr. Adame for hemodialysis arrangement Renal diet Anemia of chronic kidney disease Hemoglobin 11.2/32.5 Continue to monitor labs Reconcile home medication DVT prophylaxis PUD prophylaxis not indicated no history of GERD Labs in a.m. Discussed plan of care with the patient in which all questions concerns have been addressed Plan discussed with: Patient My Orders Orders - CONSTANTIN YO Procedure Category Date Status Time *Dr. Adame Group -Da CONS 01/15/25 Transmitted Erica 17:30 Admit ADMIT 01/15/25 Transmitted 17:30 Renal DIET 01/15/25 Transmitted Standard(2gna,3gk,Lopho) Dinner Complete Blood Count LAB 01/16/25 Verified 04:00 Comprehensive LAB 01/16/25 Verified Metabolic Panel 04:00 Condition: Fair YRIS 01/15/25 In Process 17:30 Acetaminophen Tablet PHA 01/15/25 In Process (Tylenol Tablet) 17:30 Bedrest With Bathroom YRIS 01/15/25 In Process Privileg 17:30 Nitroglycerin PHA 01/15/25 In Process Sublingual (Ntrostat 17:30 Morphine Sulfate PHA 01/15/25 In Process Injection 17:30 Stat Ekg For Chest YRIS 01/15/25 In Process Pain 17:30 Notify Of Changes YRIS 01/15/25 In Process From Base 17:30 Milling Planer Operator For YRIS 01/15/25 In Process 24 Hours 17:30 Emergency Dysrhythmia YRIS 01/15/25 In Process Protocol 17:30 Rhythm Strips Once YRIS 01/15/25 In Process Every Shift 17:30 Oxygen By Nasal RT 01/15/25 Transmitted Cannula 17:30 Communication Order ORDERS 01/15/25 Transmitted 17:32 Date of Service: January 15, 2025 Billing Provider: CONSTANTIN YO Common Visit Codes: [id number] INP/OBS CARE (HIGH) CONSTANTIN YO January 15, 2025 18:07
--- NOTE | 2025-01-15 18:54 | ECG ---
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
[2025-01-15] MEDS ORDERED: ACETAMINOPHEN 325 MG TAB PO PRN (19:15)
[2025-01-15 19:30] VITALS: PULSE 58; RESP 17; O2SAT 95
--- NOTE | 2025-01-15 19:51 | DVH ---
Carotid Duplex Date: 01/15/2025 07:19 PM Clinical History: syncope Comparison: None Technique: Duplex Doppler evaluation of the extracranial carotid and vertebral arteries including col or Doppler and spectral/pulsed waveform analysis was performed. Findings: RIGHT SIDE: The peak systolic velocities are 39.2 cm/s in the distal CCA and 60.3 cm/s in the proximal ICA.The IC A/CCA ratio is less than 2. The external carotid artery is patent with peak systolic velocity of 38.2 cm/s proximally. There is appropriate antegrade flow in the right vertebral artery, 39.5 LEFT SIDE: The peak systolic velocities are 52.3 cm/s in the distal CCA and 68.6 cm/s in the proximal ICA.. The ICA/CCA ratio is less than 2. The external carotid artery is patent with peak systolic velocity of 49.1 cm/s proximally. There is appropriate antegrade flow in the left vertebral artery, 26.1 IMPRESSION: 1. No hemodynamically significant stenosis noted in the right carotid system. 2. No hemodynamically significant stenosis noted in the left carotid system. 3. Reference: Radiology 2003; 229:340-346
[2025-01-15] MEDS ORDERED: OMEP-445 (21:01)
[2025-01-15] MEDS ORDERED: APIX2.5T PO (21:01)
[2025-01-15] MEDS ORDERED: FIN5T PO (21:01)
[2025-01-15] MEDS ORDERED: SIMV20TA20 PO (21:01)
[2025-01-15] MEDS ORDERED: METO25TA93 PO (21:01)
[2025-01-15] MEDS ORDERED: SEVE800T10 PO (21:01)
[2025-01-15] MEDS ORDERED: TAMS0.4C39 PO (21:01)
[2025-01-16] VITALS (9 sets, daily range): BP systolic 144–159; BP diastolic 62–77; PULSE 60–75; RESP 15–18; TEMP 97.3–98.7; O2SAT 91–98
[2025-01-16 07:26] LABS: Basophils # (auto) 0 10 ^3/uL (0-0.2); Eosinophils # (auto) 0.1 10 ^3/uL (0-0.8); Mean Corpuscular Hgb Conc. 33.4 g/dL (32.0-36.0); Monocytes # (auto) 0.4 10 ^3/uL (0-1.3); Monocytes % (auto) 10.4 % (0.0-12.0); Neutrophils # (auto) 2.8 10 ^3/uL (1.6-8.6); White Blood Cell 3.9 10^3/uL (4.4-10.8)
[2025-01-16 07:30] LABS: Basophils % (auto) 0.7 % (0.0-2.0); Eosinophils % (auto) 1.4 % (0.0-7.0); Hematocrit 35.6 % (41.0-53.0); Hemoglobin 11.9 g/dL (13.5-17.5); Lymphocytes # (auto) 0.7 10 ^3/uL (0.4-5.4); Mean Corpuscular Hemoglobin 34.1 pg (28.0-32.0); Mean Corpuscular Volume 102.1 fL (80.0-100.0); Neutrophils % (auto) 70.5 % (37.0-80.0); Nucleated Red Blood Cells % 0.2 %; Platelet Count (auto) 172 10^3/uL (140-450); Red Blood Cells 3.49 10^6/uL (4.5-5.90); Red Cell Distribution Width 17.3 % (11.8-14.3)
[2025-01-16 07:48] LABS: Albumin 3.9 g/dL (3.2-4.8); Alkaline Phosphatase 55 U/L (46-116); Anion Gap 13 (5-15); BUN/Creatinine Ratio 4.4 (10.0-20.0); Calcium 8.9 mg/dL (8.7-10.4); Carbon Dioxide 28 mmol/L (20-31); Total Protein 6.6 g/dL (5.7-8.2)
[2025-01-16 07:49] LABS: Bilirubin, Total 0.5 mg/dL (0.2-1.0)
[2025-01-16 07:50] LABS: Alanine Aminotransferase < 9 U/L (7-40); Aspartate Aminotransferase 9 U/L (13-40); Blood Urea Nitrogen 32 mg/dL (9-23); Chloride 94 mmol/L (98-107); Glucose 134 mg/dL (74-106); Sodium 135 mmol/L (136-145)
[2025-01-16] MEDS: cefTRIAXone 1GM/50ML D5W 50 ML IV SCH (09:07)
--- NOTE | 2025-01-16 13:11 | DVHPN2 ---
Reviewed: Care Plan, H&P, Labs, Medications, Previous Orders, Radiology Changes from previous H/P or p: No Changes Objective Vitals Vital Signs Date Time Temp Pulse Resp B/P (MAP) Pulse Ox O2 Delivery O2 Flow Rate FiO2 01/16/25 09:00 98.7 71 16 148/76 (100) 98 98.7 01/16/25 00:01 Room Air* 0 21 Intake/Output Intake and Output 01/16/25 07:00 Intake Total 800 ml Output Total 220 ml Balance 580 ml Intake Oral 350 ml IV Total 450 ml Output Urine Total 220 ml # Voids 2 Medications Current Medications Medications Dose Ordered Sig/Zeferino Route Start Time Stop Time Status Last Admin Dose Admin Acetaminophen 650 mg Q6HP PRN PO 01/15/25 17:30 Nitroglycerin 0.4 mg Q5MINP PRN SL 01/15/25 17:30 Morphine Sulfate 2 mg Q30M PRN IV 01/15/25 17:30 Ceftriaxone Sodium 50 ml @ 100 mls/hr DAILY@09 IV 01/16/25 09:00 01/16/25 09:07 100 MLS/HR Laboratory Results Laboratory Tests 01/16/25 07:03 Chemistry Test 01/15/25 13:40 01/16/25 07:03 Albumin 3.8 g/dL (3.2-4.8) 3.9 g/dL (3.2-4.8) Calcium Level 9.3 mg/dL (8.7-10.4) 8.9 mg/dL (8.7-10.4) Magnesium Level 2.0 mg/dL (1.6-2.6) Total Protein 6.1 g/dL (5.7-8.2) 6.6 g/dL (5.7-8.2) LFT Test 01/15/25 13:40 01/16/25 07:03 Alanine Aminotransferase (ALT) 11 U/L (7-40) < 9 U/L (7-40) Alkaline Phosphatase 55 U/L (46-116) 55 U/L (46-116) Aspartate Amino Transferase (AST) 13 U/L (13-40) 9 U/L (13-40) L Total Bilirubin 0.7 mg/dL (0.2-1.0) 0.5 mg/dL (0.2-1.0) Labs and/or images reviewed: Labs reviewed by me, Image(s) reviewed by me Assessment/Plan Assessment/Plan Syncope possibly secondary to pneumonia: CT head pending, carotid ultrasound negative, echocardiogram pending Community-acquired right lower lobe pneumonia: Rocephin azithromycin ESRD on hemodialysis, Nephrology consult Possible right pleural effusion History of cancer Anemia of chronic disease Flu test pending Rafia test pending D-dimer pending Noncompliance: missed dialysis Spent 65 minutes Advanced care planning time 20 minutes Patient is hospice revoked Patient is full code Plan discussed with: Patient Date of Service: January 16, 2025 Billing Provider: IAN CUTLER MD Common Visit Codes: [id number] CARE 30-74 MIN IAN CUTLER MD January 16, 2025 13:11
--- NOTE | 2025-01-16 13:35 | DVHINCON2 ---
Date of service: January 16, [address] Abraham Reason for Consultation Dialysis History of Present Illness 84 Y/ O M with history of ESRD on HD via Rt IJ TC, HTN, BPH, presented with generalized weakness and syncope episode. CXR shows right lower lobe opacity, and pleural effusion. Dialysis [facility] at [facility] are TTS.he is admitted for pneumonia. Nephrology consulted for dialysis Past Medical History ESRD HTN Hyperphosphatemia Past Surgical History tunneled dialysis catheter placement Allergies: Coded Allergies: NO KNOWN ALLERGIES (Unverified , 04/27/18) Home Meds Active Scripts Cefpodoxime Proxetil (Cefpodoxime Proxetil) 200 Mg Tab, 1 TAB PO BID for 3 Days, #6 TAB Prov:DEBORAH CARRASCO RESIDENT 07/25/24 Azithromycin (ZITHROMAX TABLET) 250 Mg Tb, 250 MG PO DAILY for 5 Days, #5 TAB Prov:DEBORAH CARRASCO RESIDENT 07/25/24 Reported Medications Omeprazole Magnesium (Acid Air Quality Technician) 20 Mg Tab, 40 01/15/25 Sevelamer Carbonate (Sevelamer Carbonate) 800 Mg Tab, TAB PO 01/15/25 Metoprolol Succinate (Metoprolol Succinate Er) 25 Mg Tab, 1 TAB PO DAILY 01/15/25 Apixaban Base (ELIQUIS) 2.5 Mg Tab, 1 TAB PO BID 01/15/25 Tamsulosin Hcl (Tamsulosin Hcl) 0.4 Mg Cap, CAP PO 01/15/25 Finasteride (Finasteride) 5 Mg Tab, 1 TAB PO DAILY 01/15/25 Simvastatin (Simvastatin) 20 Mg Tab, 1 TAB PO 01/15/25 Current Medications Current Medications Medications (Trade) Dose Ordered Sig/Zeferino Route PRN Reason Start Time Stop Time Status Last Admin Acetaminophen (Tylenol Tablet) 650 mg Q6HP PRN PO PAIN SCALE 1-3 OR TEMP>100.4 01/15/25 17:30 Nitroglycerin (Ntrostat Sublingual) 0.4 mg Q5MINP PRN SL FOR CHEST PAIN 01/15/25 17:30 Morphine Sulfate 2 mg Q30M PRN IV FOR CHEST PAIN 01/15/25 17:30 Ceftriaxone Sodium 50 ml @ 100 mls/hr DAILY@09 IV 01/16/25 09:00 01/16/25 09:07 Acetaminophen (Tylenol Tablet) 650 mg Q6HP PRN PO PAIN SCALE 1-3 OR TEMP>100.4 01/15/25 19:15 01/15/25 19:14 DC Azithromycin 250 ml @ 125 mls/hr DAILY IV 01/17/25 10:00 Family History: Patient reports no known family medical history. Review of Systems as per HPI, all other symptoms were reviewed and are negative H&P Exam Vital Signs/I&O Vital Sign Date Time Temp Pulse Resp B/P (MAP) Pulse Ox O2 Delivery O2 Flow Rate FiO2 01/16/25 13:00 97.3 63 17 156/76 (102) 95 97.3 01/16/25 08:00 Room Air* 0 21 Intake and Output0 01/15/25 01/16/25 19:00 07:00 Intake Total 450 ml 350 ml Output Total 220 ml Balance 450 ml 130 ml Intake Oral 350 ml IV Total 450 ml Output Urine Total 220 ml # Voids 2 Physical Exam Gen: NAD HEENT: NC, AT Lungs: decreased breath sounds Rt lung base Cardiac: RRR Abd: soft, no tenderness Ext: no edema + RT IJ TC Labs/Diagnostic Data Labs/Diagnostic Data Laboratory Tests Test 01/16/25 13:41 01/16/25 07:03 01/15/25 13:40 Range/Units D-Dimer, Quantitative 0.48 0.0-0.49 mg/L FEU White Blood Count 3.9 L 3.9 L 4.4-10.8 10^3/uL Red Blood Count 3.49 L 3.21 L 4.5-5.90 10^6/uL Hemoglobin 11.9 L 11.2 L 13.5-17.5 g/dL Hematocrit 35.6 L 32.5 L 41.0-53.0 % Mean Corpuscular Volume 102.1 H 101.3 H 80.0-100.0 fL Mean Corpuscular Hemoglobin 34.1 H 34.9 H 28.0-32.0 pg Mean Corpuscular Hemoglobin Concent 33.4 34.4 32.0-36.0 g/dL Red Cell Distribution Width 17.3 H 17.4 H 11.8-14.3 % Platelet Count 172 175 140-450 10^3/uL Mean Platelet Volume 6.9 6.8 L 6.9-10.8 fL Neutrophils (%) (Auto) 70.5 63.0 37.0-80.0 % Lymphocytes (%) (Auto) 17.0 21.9 10.0-50.0 % Monocytes (%) (Auto) 10.4 13.6 H 0.0-12.0 % Eosinophils (%) (Auto) 1.4 1.1 0.0-7.0 % Basophils (%) (Auto) 0.7 0.4 0.0-2.0 % Neutrophils # (Auto) 2.8 2.4 1.6-8.6 10 ^3/uL Lymphocytes # (Auto) 0.7 0.9 0.4-5.4 10 ^3/uL Monocytes # (Auto) 0.4 0.5 0-1.3 10 ^3/uL Eosinophils # (Auto) 0.1 0 0-0.8 10 ^3/uL Basophils # (Auto) 0 0 0-0.2 10 ^3/uL Nucleated Red Blood Cells 0.2 0.0 % Sodium Level 135 L 134 L 136-145 mmol/L Potassium Level 4.0 3.9 3.5-5.1 mmol/L Chloride Level 94 L 94 L 98-107 mmol/L Carbon Dioxide Level 28 31 20-31 mmol/L Anion Gap 13 9 5-15 Blood Urea Nitrogen 32 H 30 H 9-23 mg/dL Creatinine 7.33 H 6.25 H 0.700-1.30 mg/dL Glomerular Filtration Rate Calc 7 8 >90 mL/min BUN/Creatinine Ratio 4.4 L 4.8 L 10.0-20.0 Serum Glucose 134 H 88 74-106 mg/dL Calcium Level 8.9 9.3 8.7-10.4 mg/dL Total Bilirubin 0.5 0.7 0.2-1.0 mg/dL Aspartate Amino Transferase (AST) 9 L 13 13-40 U/L Alanine Aminotransferase (ALT) < 9 11 7-40 U/L Alkaline Phosphatase 55 55 46-116 U/L Total Protein 6.6 6.1 5.7-8.2 g/dL Albumin 3.9 3.8 3.2-4.8 g/dL Magnesium Level 2.0 1.6-2.6 mg/dL Troponin I High Sensitivity 17 </=54 ng/L Plasma/Serum Blood Alcohol < 3.0 <10 mg/dL Assessment ESRD on HD via Rt IJ TC Syncope HTN Anemia of CKD Rt lung pneumonia Rt Pleural effusion Plan: spoke with patient. he rather have HD tomorrow Cardiology consult NAN post HD as needed. goal Hb: 10-11 g/dl Plan discussed with: Patient DINO DIAMOND MD January 16, 2025 13:35
[2025-01-16] MEDS: AZITHROMYCIN 500MG/ 250ML 250 ML IV ONE (14:47)
--- NOTE | 2025-01-16 15:02 | DVH ---
Procedure: CT HEAD WITHOUT CONTRAST Study Date and Requested Time: 01/16/2025 01:52 PM History: syncope Comparison: CT HEAD WITHOUT CONTRAST on DOS: 07/20/24 Dose: CTDI: 53.88 mGy DLP: 1081.11 mGycm Technique: Multiplanar images obtained through the brain without intravenous contrast. Findings: Moderate diffuse brain atrophy. Mild chronic small vessel ischemic changes. No hemorrhages, masses, mass effect, midline shift, herniation or cytotoxic edema following a large v ascular territory. No intra-axial or extra-axial fluid collections. No evidence of hydrocephalus. The basal cisterns are patent. The pituitary gland, sella and parasellar regions are unremarkable. The cerebellar tonsils are in nor mal position. The cerebellum is unremarkable. Bilateral lens replacement. Otherwise, orbits and globes are unremarkable. The paranasal sinuses and left mastoid are clear. Partial opacification of the right mastoid. There are no worrisome calvarial lesions. Impression: No evidence of acute intracranial abnormality. Right mastoid disease.
[2025-01-16 15:47] LABS: COVID19 ANTIGEN SOFIA FIA NEGATIVE (NEGATIVE); Rapid Influenza A Negative (Negative); Rapid Influenza B Negative (Negative)
[2025-01-16 20:28] LABS: Urine Bacteria None Seen /hpf (None Seen)
[2025-01-16 20:36] LABS: Urine Blood Negative /uL (Negative); Urine Clarity Clear (Clear); Urine Color Light-Yellow (Yellow); Urine Protein, UAD 3+ (Negative); Urine Specific Gravity 1.011 (1.001-1.035); Urine Squamous Epithelial Cell None Seen /hpf (<5); Urine Urobilinogen Normal (Negative); Urine WBC 1 /HPF (0-3); Urine pH 8.5 (5.0-9.0)
[2025-01-16 20:47] LABS: Benzodiazephine Screen, Urine Neg (NEGATIVE)
[2025-01-16 20:48] LABS: Amphetamine Screen, Urine Neg (NEGATIVE); Barbiturate Scree,Urine Neg (NEGATIVE); Cannabinoid Screen, Urine Neg (NEGATIVE); Cocaine Screen, Urine Neg (NEGATIVE); Opiate Scree,Urine Neg (NEGATIVE); Phencyclidine Screen, Urine Neg (NEGATIVE)
[2025-01-17] VITALS (9 sets, daily range): BP systolic 142–164; BP diastolic 62–81; PULSE 66–94; RESP 17–20; TEMP 97.4–98.6; O2SAT 92–97
[2025-01-17] MEDS ORDERED: SODIUM CHL 0.9% 1000 ML BAG XX ONE (07:00)
--- NOTE | 2025-01-17 08:20 | DVH ---
US CHEST ULTRASOUND, HISTORY: FLUID CHECK FOR POSSIBLE THORACENTESIS COMPARISON(S): None TECHNICAL DATA: Transverse and longitudinal images are obtained of the chest. FINDING: IMPRESSION(S): Moderate right pleural effusion. Small left pleural effusion.
[2025-01-17 09:52] LABS: INR 1.11 (0.9-1.15); Prothrombin Time 11.6 sec (9.3-11.8)
--- NOTE | 2025-01-17 11:12 | DVH ---
XY CHEST PORTABLE, HISTORY: POST THORACENTESIS COMPARISON: XY CHEST PORTABLE on DOS: 01/15/25, XY CHEST XRAY 1 VIEW on DOS: 07/23/24, XY CHEST XRAY 1 VIEW on DOS: 07/21/24 XY CHEST PORTABLE on DOS: 01/15/25, XY CHEST XRAY 1 VIEW on DOS: 07/23/24, XY CHEST XRAY 1 VIEW on DOS : 07/21/24 TECHNICAL DATA: 1 view of the chest was obtained. FINDINGS: Lines and tubes: A tunneled HD catheter is seen. Cardiomediastinal silhouette: Enlarged Pulmonary vasculature: Prominent Lung expansion: normal Lung airspace: normal Lung interstitium: normal Pleura: normal Pneumothorax: no Bones: Unremarkable Other: no IMPRESSION: No pneumothorax is seen after thoracentesis.
--- NOTE | 2025-01-17 11:13 | DVH ---
US THORACENTESIS, HISTORY: PLEURAL EFFUSION PROCEDURE: Informed consent was obtained. The patient was seated on the bed. A limited localization u ltrasound of the right thorax was obtained, and the optimal approach was marked on the skin. The area was prepped with chlorhexidine which was allowed to dry and draped in the usual sterile fashion. Juan e out was performed. The skin and the soft tissues were infiltrated with 1% lidocaine. A 5.5 Divehi c entesis needle catheter was advanced into right pleural space. Following aspiration of fluid, the cat heter was advanced and the needle removed. About 1500 cc of fluid was drained. No immediate complica tion was identified. FINDINGS: Moderate right pleural effusion. Aspirated fluid is clear and serous. IMPRESSION: Successful right thoracentesis with 1.5L removed.
--- NOTE | 2025-01-17 12:17 | DVHPN2 ---
Reviewed: Care Plan, H&P, Labs, Medications, Previous Orders, Radiology Changes from previous H/P or p: No Changes Objective Vitals Vital Signs Date Time Temp Pulse Resp B/P (MAP) Pulse Ox O2 Delivery O2 Flow Rate FiO2 01/17/25 09:00 97.8 79 17 163/80 (107) 92 97.8 01/16/25 20:00 Room Air* 0 21 Intake/Output Intake and Output 01/17/25 07:00 Intake Total 820 ml Balance 820 ml Intake Oral 520 ml IV Total 300 ml # Voids 1 # Bowel Movements 1 Medications Current Medications Medications Dose Ordered Sig/Zeferino Route Start Time Stop Time Status Last Admin Dose Admin Acetaminophen 650 mg Q6HP PRN PO 01/15/25 17:30 Nitroglycerin 0.4 mg Q5MINP PRN SL 01/15/25 17:30 Morphine Sulfate 2 mg Q30M PRN IV 01/15/25 17:30 Ceftriaxone Sodium 50 ml @ 100 mls/hr DAILY@09 IV 01/16/25 09:00 01/16/25 09:07 100 MLS/HR Azithromycin 250 ml @ 125 mls/hr DAILY IV 01/17/25 10:00 Laboratory Results Laboratory Tests 01/16/25 07:03 Coagulation Test 01/16/25 13:41 01/17/25 09:14 D-Dimer, Quantitative 0.48 mg/L FEU (0.0-0.49) Prothrombin Time 11.6 sec (9.3-11.8) Prothrombin Time INR 1.11 (0.9-1.15) Activated Partial Thromboplast Time 35.0 SEC (24.5-34.5) H Urinalysis Test 01/16/25 20:17 Urine Color Light-yellow (Yellow) Urine Clarity Clear (Clear) Urine pH 8.5 (5.0-9.0) Urine Specific [place] 1.011 (1.001-1.035) Urine Protein 3+ (Negative) H Urine Ketones Negative (Negative) Urine Blood Negative /uL (Negative) Urine Nitrite Negative (Negative) Urine Bilirubin Negative (Negative) Urine Urobilinogen Normal mg/dL (Negative) Urine Leukocyte Esterase Negative /uL (Negative) Urine RBC 2 /hpf (0 - 3) Urine Microscopic WBC 1 /HPF (0-3) Urine Squamous Epithelial Cells None seen /hpf (<5) Urine Bacteria None seen /hpf (None Seen) Urine Glucose 2+ mg/dL (Normal) H Microbiology Microbiology Date/Time Source Procedure Growth Status 01/15/25 16:22 Blood Blood Culture - Preliminary NO GROWTH AFTER 24 HOURS OF INCUBATION. Resulted Labs and/or images reviewed: Labs reviewed by me, Image(s) reviewed by me Assessment/Plan Assessment/Plan Syncope possibly secondary to pneumonia: CT head negative carotid ultrasound negative, echocardiogram result pending Community-acquired right lower lobe pneumonia: Rocephin azithromycin ESRD on hemodialysis, Nephrology consult Fluid overload Right pleural effusion: Status post removal of 1.5 L of fluid by the radiologist History of ascending aortic bleed, air lifted from [facility] to [place], one month stay and discharged home on hospice on 12-21-24 Anemia of chronic disease Flu test negative Rafia test negative D-dimer normal Noncompliance: Missed dialysis Spent 65 minutes Patient's son Ross Jones [phone] and his Katrin at the bedside Patient is hospice revoked Patient is full code Plan discussed with: Patient My Orders Orders - IAN CUTLER MD Procedure Category Date Status Time Head Without Contrast CT 01/16/25 Resulted 13:13 * Radiologist Consult CONS 01/16/25 Transmitted 13:16 Azithromycin 500mg/ PHA 01/17/25 In Process 250ml (Zithromax 50 10:00 Date of Service: January 17, 2025 Billing Provider: AIN CUTLER MD Common Visit Codes: [id number] INP/OBS CARE(HIGH) Secondary Visit Codes: [id number] CARE PLAN 30 MINUTES IAN CUTLER MD January 17, 2025 12:17
[2025-01-17 12:54] LABS: Body Fluid Red Blood Cells 782 CUMM (0-2000); Body Fluid White Blood Cells 261 CUMM (0-200)
--- NOTE | 2025-01-17 14:55 | DVHPN2 ---
Progress Note - Dictate Date Seen: January 17, 2025 Medical Necessity Reason Pt with a Central, PICC or Fol: No Subjective no new symptoms vital signs Vital Sign Date Time Temp Pulse Resp B/P (MAP) Pulse Ox O2 Delivery O2 Flow Rate FiO2 01/17/25 12:45 98.6 78 18 164/74 (104) 96 98.6 01/17/25 08:00 Room Air* 0 21 Total Intake and Output 01/16/25 01/16/25 01/17/25 15:00 23:00 07:00 Intake Total 50 ml 650 ml 120 ml Balance 50 ml 650 ml 120 ml medications Current Medications Medications Dose Ordered Sig/Zeferino Route Start Time Stop Time Status Last Admin Dose Admin Acetaminophen 650 mg Q6HP PRN PO 01/15/25 17:30 Nitroglycerin 0.4 mg Q5MINP PRN SL 01/15/25 17:30 Morphine Sulfate 2 mg Q30M PRN IV 01/15/25 17:30 Ceftriaxone Sodium 50 ml @ 100 mls/hr DAILY@09 IV 01/16/25 09:00 01/16/25 09:07 100 MLS/HR Azithromycin 250 ml @ 125 mls/hr DAILY IV 01/17/25 10:00 objective Gen: NAD HEENT: NC, AT Lungs: decreased breath sounds Rt lung base Cardiac: RRR Abd: soft, no tenderness Ext: no edema + RT IJ TC laboratory and microbiology Laboratory Tests 01/16/25 07:03 Test 01/16/25 07:03 Range/Units Serum Glucose 134 H 74-106 mg/dL Assessment/Plan ESRD on HD via Rt IJ TC Syncope HTN Anemia of CKD Rt lung pneumonia Rt Pleural effusion Plan: scheduled for HD today. Cardiology consult continue IV antibiotics per primary team f/u blood cultures NAN post HD as needed. goal Hb: 10-11 g/dl Plan discussed with: Patient DINO DIAMOND MD January 17, 2025 14:55
[2025-01-17] MEDS: AZITHROMYCIN 500MG/ 250ML 250 ML IV SCH (15:54)
[2025-01-17] MEDS: ACETAMINOPHEN 325 MG TAB PO PRN (17:27)
[2025-01-18] VITALS (8 sets, daily range): BP systolic 142–163; BP diastolic 61–81; PULSE 60–74; RESP 17–21; TEMP 97.5–99.5; O2SAT 92–98
[2025-01-18] MEDS: cloNIDine HCL 0.1 MG TAB PO PRN (01:38)
--- NOTE | 2025-01-18 11:40 | DVHPN2 ---
Progress Note - Dictate Date Seen: January 18, 2025 Medical Necessity Reason Pt with a Central, PICC or Fol: No Subjective no new symptoms vital signs Vital Sign Date Time Temp Pulse Resp B/P (MAP) Pulse Ox O2 Delivery O2 Flow Rate FiO2 01/18/25 08:27 98.2 62 21 145/61 (89) 92 98.2 01/17/25 20:00 Room Air* 0 21 Total Intake and Output 01/17/25 01/17/25 01/18/25 15:00 23:00 07:00 Intake Total 1200 ml 240 ml Balance 1200 ml 240 ml medications Current Medications Medications Dose Ordered Sig/Zeferino Route Start Time Stop Time Status Last Admin Dose Admin Acetaminophen 650 mg Q6HP PRN PO 01/15/25 17:30 01/17/25 17:27 650 MG Nitroglycerin 0.4 mg Q5MINP PRN SL 01/15/25 17:30 Morphine Sulfate 2 mg Q30M PRN IV 01/15/25 17:30 Ceftriaxone Sodium 50 ml @ 100 mls/hr DAILY@09 IV 01/16/25 09:00 01/18/25 11:15 100 MLS/HR Azithromycin 250 ml @ 125 mls/hr DAILY IV 01/17/25 10:00 01/17/25 15:54 125 MLS/HR Clonidine HCl 0.2 mg Q6HP PRN PO 01/17/25 15:45 01/18/25 01:38 0.2 MG objective Gen: NAD HEENT: NC, AT Lungs: decreased breath sounds Rt lung base Cardiac: RRR Abd: soft, no tenderness Ext: no edema + RT IJ TC laboratory and microbiology Laboratory Tests 01/16/25 07:03 Test 01/16/25 07:03 Range/Units Serum Glucose 134 H 74-106 mg/dL Assessment/Plan ESRD on HD via Rt IJ TC Syncope HTN Anemia of CKD Rt lung pneumonia Rt Pleural effusion Plan: s/p HD Friday Next HD on Friday Cardiology consult continue IV antibiotics per primary team f/u blood cultures. no growth in 48 hours NAN post HD as needed. goal Hb: 10-11 g/dl Plan discussed with: Patient DINO DIAMOND MD January 18, 2025 11:40
--- NOTE | 2025-01-18 12:53 | DVHPN2 ---
Reviewed: Care Plan, H&P, Labs, Medications, Previous Orders, Radiology Changes from previous H/P or p: No Changes Objective Vitals Vital Signs Date Time Temp Pulse Resp B/P (MAP) Pulse Ox O2 Delivery O2 Flow Rate FiO2 01/18/25 08:27 98.2 62 21 145/61 (89) 92 98.2 01/17/25 20:00 Room Air* 0 21 Intake/Output Intake and Output 01/18/25 07:00 Intake Total 1440 ml Balance 1440 ml Intake Oral 1140 ml IV Total 300 ml # Voids 3 Medications Current Medications Medications Dose Ordered Sig/Zeferino Route Start Time Stop Time Status Last Admin Dose Admin Acetaminophen 650 mg Q6HP PRN PO 01/15/25 17:30 01/17/25 17:27 650 MG Nitroglycerin 0.4 mg Q5MINP PRN SL 01/15/25 17:30 Morphine Sulfate 2 mg Q30M PRN IV 01/15/25 17:30 Ceftriaxone Sodium 50 ml @ 100 mls/hr DAILY@09 IV 01/16/25 09:00 01/18/25 11:15 100 MLS/HR Azithromycin 250 ml @ 125 mls/hr DAILY IV 01/17/25 10:00 01/17/25 15:54 125 MLS/HR Clonidine HCl 0.2 mg Q6HP PRN PO 01/17/25 15:45 01/18/25 01:38 0.2 MG Laboratory Results Laboratory Tests 01/16/25 07:03 Urinalysis Test 01/16/25 20:17 Urine Color Light-yellow (Yellow) Urine Clarity Clear (Clear) Urine pH 8.5 (5.0-9.0) Urine Specific [place] 1.011 (1.001-1.035) Urine Protein 3+ (Negative) H Urine Ketones Negative (Negative) Urine Blood Negative /uL (Negative) Urine Nitrite Negative (Negative) Urine Bilirubin Negative (Negative) Urine Urobilinogen Normal mg/dL (Negative) Urine Leukocyte Esterase Negative /uL (Negative) Urine RBC 2 /hpf (0 - 3) Urine Microscopic WBC 1 /HPF (0-3) Urine Squamous Epithelial Cells None seen /hpf (<5) Urine Bacteria None seen /hpf (None Seen) Urine Glucose 2+ mg/dL (Normal) H Microbiology Microbiology Date/Time Source Procedure Growth Status 01/17/25 11:05 Pleural Fluid Gram Stain - Final Resulted 01/17/25 11:05 Pleural Fluid Aerobic Culture Pending Resulted 01/15/25 16:22 Blood Blood Culture - Preliminary NO GROWTH AFTER 48 HOURS OF INCUBATION. Resulted Labs and/or images reviewed: Labs reviewed by me, Image(s) reviewed by me Assessment/Plan Assessment/Plan Syncope possibly secondary to pneumonia: CT head negative carotid ultrasound negative, echocardiogram result pending Community-acquired right lower lobe pneumonia: Rocephin azithromycin ESRD on hemodialysis, Nephrology consult Fluid overload Right pleural effusion: Status post removal of 1.5 L of fluid by the radiologist History of ascending aortic bleed, air lifted from [facility] to [place], one month stay and discharged home on hospice on 12-21-24 Anemia of chronic disease Flu test negative Rafia test negative D-dimer normal Noncompliance: Missed dialysis Spent 55 minutes Patient's son Ross Jones [phone] and his Katrin at the bedside; patient to be discharged to halfway facility for IV antibiotics for two weeks for pneumonia, plan is acceptable patient's son and the [id number] Patient is hospice revoked Patient is full code Plan discussed with: Patient My Orders Orders - IAN CUTLER MD Procedure Category Date Status Time Clonidine Hcl Tablet PHA 01/17/25 In Process (Catapres Tablet) 15:45 Date of Service: January 18, 2025 Billing Provider: IAN CUTLER MD Common Visit Codes: [id number] INP/OBS CARE(HIGH) IAN CUTLER MD January 18, 2025 12:53
--- NOTE | 2025-01-18 13:07 | DVHDS2 ---
Discharge Summary Date of Admission January 15, 2025 at 17:30 Date of Discharge: January 18, 2025 Admitting Diagnosis Shortness of breath Wounds: None Labs/Diagnostic Data: Laboratory Results Test 01/17/25 11:05 01/17/25 09:14 01/16/25 20:17 01/16/25 14:50 Body Fluid Source Pleural fluid Body Fluid pH 8.0 Body Fluid WBC (Manual) 261 CUMM (0-200) Body Fluid RBC (Manual) 782 CUMM (0-2000) Body Fluid Mononuclear Cells 94 % Body Fluid Polymorphonuclear Cells 6 % (0-25) Prothrombin Time 11.6 sec (9.3-11.8) Prothrombin Time INR 1.11 (0.9-1.15) Activated Partial Thromboplast Time 35.0 SEC (24.5-34.5) Urine Color Light-yellow (Yellow) Urine Clarity Clear (Clear) Urine pH 8.5 (5.0-9.0) Urine Specific [place] 1.011 (1.001-1.035) Urine Protein 3+ (Negative) Urine Ketones Negative (Negative) Urine Blood Negative /uL (Negative) Urine Nitrite Negative (Negative) Urine Bilirubin Negative (Negative) Urine Urobilinogen Normal mg/dL (Negative) Urine Leukocyte Esterase Negative /uL (Negative) Urine RBC 2 /hpf (0 - 3) Urine Microscopic WBC 1 /HPF (0-3) Urine Squamous Epithelial Cells None seen /hpf (<5) Urine Bacteria None seen /hpf (None Seen) Urine Glucose 2+ mg/dL (Normal) Urine Opiates Screen Neg (NEGATIVE) Urine Fentanyl Screen Neg (NEGATIVE) Urine Barbiturates Screen Neg (NEGATIVE) Urine Phencyclidine Screen Neg (NEGATIVE) Urine Amphetamines Screen Neg (NEGATIVE) Urine Benzodiazepines Screen Neg (NEGATIVE) Urine Cocaine Screen Neg (NEGATIVE) Urine Cannabinoids Screen Neg (NEGATIVE) Influenza Type A Antigen Negative (Negative) Influenza Type B Antigen Negative (Negative) SARS-CoV-2 Antigen (Rapid) Negative (NEGATIVE) Test 01/16/25 13:41 01/16/25 07:03 01/15/25 13:40 D-Dimer, Quantitative 0.48 mg/L FEU (0.0-0.49) White Blood Count 3.9 10^3/uL (4.4-10.8) Red Blood Count 3.49 10^6/uL (4.5-5.90) Hemoglobin 11.9 g/dL (13.5-17.5) Hematocrit 35.6 % (41.0-53.0) Mean Corpuscular Volume 102.1 fL (80.0-100.0) Mean Corpuscular Hemoglobin 34.1 pg (28.0-32.0) Mean Corpuscular Hemoglobin Concent 33.4 g/dL (32.0-36.0) Red Cell Distribution Width 17.3 % (11.8-14.3) Platelet Count 172 10^3/uL (140-450) Mean Platelet Volume 6.9 fL (6.9-10.8) Neutrophils (%) (Auto) 70.5 % (37.0-80.0) Lymphocytes (%) (Auto) 17.0 % (10.0-50.0) Monocytes (%) (Auto) 10.4 % (0.0-12.0) Eosinophils (%) (Auto) 1.4 % (0.0-7.0) Basophils (%) (Auto) 0.7 % (0.0-2.0) Neutrophils # (Auto) 2.8 10 ^3/uL (1.6-8.6) Lymphocytes # (Auto) 0.7 10 ^3/uL (0.4-5.4) Monocytes # (Auto) 0.4 10 ^3/uL (0-1.3) Eosinophils # (Auto) 0.1 10 ^3/uL (0-0.8) Basophils # (Auto) 0 10 ^3/uL (0-0.2) Nucleated Red Blood Cells 0.2 % Sodium Level 135 mmol/L (136-145) Potassium Level 4.0 mmol/L (3.5-5.1) Chloride Level 94 mmol/L (98-107) Carbon Dioxide Level 28 mmol/L (20-31) Anion Gap 13 (5-15) Blood Urea Nitrogen 32 mg/dL (9-23) Creatinine 7.33 mg/dL (0.700-1.30) Glomerular Filtration Rate Calc 7 mL/min (>90) BUN/Creatinine Ratio 4.4 (10.0-20.0) Serum Glucose 134 mg/dL (74-106) Calcium Level 8.9 mg/dL (8.7-10.4) Total Bilirubin 0.5 mg/dL (0.2-1.0) Aspartate Amino Transferase (AST) 9 U/L (13-40) Alanine Aminotransferase (ALT) < 9 U/L (7-40) Alkaline Phosphatase 55 U/L (46-116) Total Protein 6.6 g/dL (5.7-8.2) Albumin 3.9 g/dL (3.2-4.8) Magnesium Level 2.0 mg/dL (1.6-2.6) Troponin I High Sensitivity 17 ng/L (</=54) Plasma/Serum Blood Alcohol < 3.0 mg/dL (<10) Other Laboratory Tests 01/16/25 07:03 Brief Hx & Hospital Course: 84-year-old male with a history of ESRD on hemodialysis anemia of chronic disease history of ascending aorta bleed air lifted from [place] to [facility] one month stay there and discharged home on hospice on 12/21/2024 burden by family for shortness of breath and syncopal episode. 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 Discussed with the patient's son Guera and [id number] choice and patient being discharged to [facility] for IV antibiotics for pneumonia for two weeks and for dialysis and physical therapy . 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 CT chest Thoracentesis Condition at Discharge: Fair Final Diagnosis/Problems List Syncope possibly secondary to pneumonia: CT head negative carotid ultrasound negative, echocardiogram result pending Community-acquired right lower lobe pneumonia: Rocephin azithromycin ESRD on hemodialysis, Nephrology consult Fluid overload Right pleural effusion: Status post removal of 1.5 L of fluid by the radiologist History of ascending aortic bleed, air lifted from [facility] to [facility], one month stay and discharged home on hospice on 12-21-24 Anemia of chronic disease Flu test negative Rafia test negative D-dimer normal Noncompliance: Missed dialysis Discharge Disposition: Residential Facility Discharge Instruct/Medications Diet: Renal Activity: Light activity Follow Up/Referral: Follow up with the [facility] Dr Medications: Rocephin Azithromycin Both for two weeks for pneumonia 35 (Time taken for discharge summary 35 minutes) Discharge Statement: "Patient was advised to return to the ER or call 911 if any headaches, dizziness, shortness of breath, chest pain, abdominal pain, bleeding, fevers, or worsening of medical condition. Patient was counseled about treatment plan, medications, possible side effects, patientverbalized understanding. All questions were answered to the best of my ability. This discharge took greater then 30 minutes in planning, reviewing documentation, counseling the patient, and discussing with other team members." ASSESSMENT ASSESSMENT Hospital Course Improved marginally Assessment Syncope possibly secondary to pneumonia: CT head negative carotid ultrasound negative, echocardiogram result pending Community-acquired right lower lobe pneumonia: Rocephin azithromycin ESRD on hemodialysis, Nephrology consult Fluid overload Right pleural effusion: Status post removal of 1.5 L of fluid by the radiologist History of ascending aortic bleed, air lifted from [facility] to [facility], one month stay and discharged home on hospice on 12-21-24 Anemia of chronic disease Flu test negative Rafia test negative D-dimer normal Noncompliance: Missed dialysis Date of Service: January 18, 2025 Billing Provider: IAN CUTLER MD Common Visit Codes: 48824-QZC/OBS DISCH DAY >30min IAN CUTLER MD January 18, 2025 13:07
[2025-01-18 13:08] LABS: Protein, Body Fluid 2.8 g/dL (.)
[2025-01-19] VITALS (7 sets, daily range): BP systolic 133–157; BP diastolic 45–70; PULSE 49–75; RESP 16–18; TEMP 36.4; O2SAT 96–98
[2025-01-19] MEDS ORDERED: SODIUM CHL 0.9% 1000 ML BAG XX ONE (07:00)
--- NOTE | 2025-01-19 16:22 | DVHPN2 ---
Progress Note - Dictate Date Seen: January 19, 2025 Has the PT tested + for MRSA If YES, has PT been informed?: No Medical Necessity Reason Pt with a Central, PICC or Fol: No Subjective No new complaints vital signs Vital Sign Date Time Temp Pulse Resp B/P (MAP) Pulse Ox O2 Delivery O2 Flow Rate FiO2 01/19/25 12:31 97.7 70 17 151/64 (93) 96 97.7 01/19/25 08:00 Room Air* 0 21 Total Intake and Output 01/18/25 01/18/25 01/19/25 15:00 23:00 07:00 Intake Total 300 ml 760 ml 200 ml Output Total 500 ml 125 ml Balance 300 ml 260 ml 75 ml medications Current Medications Medications Dose Ordered Sig/Zeferino Route Start Time Stop Time Status Last Admin Dose Admin Acetaminophen 650 mg Q6HP PRN PO 01/15/25 17:30 01/18/25 22:29 650 MG Nitroglycerin 0.4 mg Q5MINP PRN SL 01/15/25 17:30 Morphine Sulfate 2 mg Q30M PRN IV 01/15/25 17:30 Ceftriaxone Sodium 50 ml @ 100 mls/hr DAILY@09 IV 01/16/25 09:00 01/19/25 09:22 100 MLS/HR Azithromycin 250 ml @ 125 mls/hr DAILY IV 01/17/25 10:00 01/19/25 13:59 125 MLS/HR Clonidine HCl 0.2 mg Q6HP PRN PO 01/17/25 15:45 01/19/25 04:53 0.2 MG objective Alert and oriented x 3 NAD Lungs CTA CV: RR, no pericardial rub Abdomen: soft, NT, normal bowel sounds No leg edema laboratory and microbiology Laboratory Tests 01/16/25 07:03 Test 01/16/25 07:03 Range/Units Serum Glucose 134 H 74-106 mg/dL Problem List ESRD on HD via Rt IJ TC Syncope HTN Anemia of CKD Rt lung pneumonia Rt Pleural effusion Plan: HD today Continue MWF schedule Cardiology consult continue IV antibiotics per primary team f/u blood cultures. no growth in 48 hours NAN post HD as needed. goal Hb: 10-11 g/dl Plan discussed with: REBEKA Reagan MD January 19, 2025 16:21
--- NOTE | 2025-01-20 09:29 | DVHSR ---
APPROVED REPORT EXAM: Two-dimensional and M-mode echocardiogram with Doppler and color Doppler. Blood Pressure: 148/76 mmHg INDICATION Syncope RISK FACTORS Height: 5' 8", Weight: 155 DIMENSIONS LVDd5.5 (3.8-5.7cm)LA (2D)4.5 (1.9-4.0cm)Aortic Root4.3 (2.0-3.7cm) LVDs4.3 (2.5-4.0cm)LA (MM) (1.9-4.0cm)Aortic Cusp Exc1.3 (1.5-2.0cm) EF (%) 47.0 (55-70%)Rt. Atrium4.0 (1.9-4.0cm)Asc. Aorta cm IVSd1.4 (0.7-1.1cm)RV (D) (1.8-2.4cm) PWd1.4 (0.7-1.1cm) Mitral Valve MitralMitral Stenosis E wave1.10m/sMV Mean GR.mmHg A wave0.70m/sMV Peak GR.mmHg E/A ratio1.62D MVAcm2 Aortic Valve Aortic ValveAortic Stenosis V11.10m/Chuckie Mean GR.5mmHg V21.40m/Chuckie Peak GR.8mmHg LVOT Diameter2.2 (1.8-2.4cm)Doppler AVA2.99cm2 AI P 1/2 Vxst763.55ms Pulmonic Valve V20.60m/s Tricuspid Valve TR Velocity2.40m/s [id number] Conclusion Technically good study. Sinus rhythm. Biatrial enlargement. LV enlargement with concentric LVH. Aortic root enlargement. There appears to be a bicuspid aortic valve. 65% ejection fraction with normal RV function. Moderate aortic insufficiency. Mild TR. No pericardial effusion masses or vegetations.
== END 2025-01-19 19:40 | DRG 177 ==
LOC: EDBD 13:08 → ER 13:08 → OVERFLOW 17:30 → TELE-WESTW 20:17
PROVIDERS: ADMIT Family Medicine; ATTEND Family Medicine
PROC: 0W993ZZ Drainage of Right Pleural Cavity, Percutaneous Approach (ICD-10-PCS; principal; 2025-01-17)
PROC: 5A1D70Z Performance of Urinary Filtration, Intermittent, Less than 6 Hours Per Day (ICD-10-PCS; 2025-01-17)
PROC: 05HF33Z Insertion of Infusion Device into Left Cephalic Vein, Percutaneous Approach (ICD-10-PCS; 2025-01-18)
PROC: B54NZZA Ultrasonography of Left Upper Extremity Veins, Guidance (ICD-10-PCS; 2025-01-18)
PROC: 5A1D70Z Performance of Urinary Filtration, Intermittent, Less than 6 Hours Per Day (ICD-10-PCS; 2025-01-19)
DX: J15.69 Pneumonia due to other Gram-negative bacteria (principal); N18.6 End stage renal disease; J90 Pleural effusion, not elsewhere classified; I48.19 Other persistent atrial fibrillation; I12.0 Hypertensive chronic kidney disease with stage 5 chronic kidney disease or end stage renal disease; Z20.822 Contact with and (suspected) exposure to COVID-19; J15.9 Unspecified bacterial pneumonia; D63.1 Anemia in chronic kidney disease; E78.5 Hyperlipidemia, unspecified; E87.70 Fluid overload, unspecified; N40.0 Benign prostatic hyperplasia without lower urinary tract symptoms; Z99.2 Dependence on renal dialysis; Z91.158 Patient's noncompliance with renal dialysis for other reason
CPT/HCPCS: 32554; 36415; 70450; 71045; 76604; 76942; 80053; 80307; 80320; 81001; 83735; 83986; 84484; 85025; 85379; 85610; 85730; 87040; 87070; 87205; 87340; 87426; 87804; 89051; 90935; 93005; 93306; 93886; 96361; 96365; 97163; G0378

== ENCOUNTER 2025-02-12 19:30 | Emergency (ER) | payer MEDICARE, OTHER ==
[~2025-02-12] VITALS: Ht 172.7 cm; Wt 66.8 kg
[~2025-02-12 19:30] MED LIST changes: +APIX2.5T PO; +FIN5T PO; +METO25TA93 PO; +OMEP-445; +SEVE800T10 PO; +SIMV20TA20 PO; +TAMS0.4C39 PO
--- NOTE | 2025-02-12 20:01 | ED.PDOC ---
History of Present Illness HPI Comments 84 y/o M is BIBA for right head and neck pain s/p mechanical fall and injury. Patient is a resident of [facility] and was brought after having an unwitnessed fall, earlier, this afternoon. Vitals were noted to have been stable and within normal limits, with exception on patient showing AFib on cardiac monitory. Patient has a history of AFib, anemia, BPH, cardiomegaly, cancer, ESERD w/HD T/Th/Sat, GERD, HLD, HTN,PNA, and pleural effusion in addition to recent syncopal episode with fall in Dec, 2024. Patient reports on losing his balance and falling onto his right side after attempting to get up from his "gurney." No prior symptoms, lost of consciousness, or additional i njuries endorsed by the patient. No vision or speech changes, weakness, lightheadedness, dizziness, or further associated symptoms reported. Chief Complaint: Fall Injury Time Seen by MD: 19:30 Reviewed Notes: Nurses Notes, Logistics And Planning Manager Notes, Medications, Allergies Allergies: Coded Allergies: NO KNOWN ALLERGIES (Unverified , 04/27/18) Home Meds Active Scripts Cefpodoxime Proxetil (Cefpodoxime Proxetil) 200 Mg Tab, 1 TAB PO BID for 3 Days, #6 TAB Prov:DEBORAH CARRASCO RESIDENT 07/25/24 Azithromycin (ZITHROMAX TABLET) 250 Mg Tb, 250 MG PO DAILY for 5 Days, #5 TAB Prov:DEBORAH CARRASCO RESIDENT 07/25/24 Reported Medications Omeprazole Magnesium (Acid Mica Paster) 20 Mg Tab, 40 01/15/25 Sevelamer Carbonate (Sevelamer Carbonate) 800 Mg Tab, TAB PO 01/15/25 Metoprolol Succinate (Metoprolol Succinate Er) 25 Mg Tab, 1 TAB PO DAILY 01/15/25 Apixaban Base (ELIQUIS) 2.5 Mg Tab, 1 TAB PO BID 01/15/25 Tamsulosin Hcl (Tamsulosin Hcl) 0.4 Mg Cap, CAP PO 01/15/25 Finasteride (Finasteride) 5 Mg Tab, 1 TAB PO DAILY 01/15/25 Simvastatin (Simvastatin) 20 Mg Tab, 1 TAB PO 01/15/25 Information Source: Patient, Emergency Med Personnel Mode of Arrival: EMS Severity: Moderate Timing: Hours Duration: Since onset Prehospital treatment: 12 Lead EKG, Accucheck, Customer Relations Specialist Past Medical History PAST MEDICAL HISTORY: AFIB, Anemia, Anxiety, Cancer, ESRD (w/HD T//Fri), High Lipids, HTN Past Medical History (Other): PNA Pleural effusion BPH Cardiomegaly GERD Insomnia Psychosis Acute respiratory failure Surgical History: Denies all surgeries Family History Family History: Reviewed,noncontributory to illness, Unknown Social History Smoker: Non-Smoker Alcohol: Occasionally Drugs: Denies Drug Use Lives In: Home All Other Systems: Reviewed and Negative (As per HPI) Physical Exam General Appearance: No Apparent Distress, Normal HEENT: Normal ENT Inspection, Pharynx Normal, TMs Normal, Other (tenderness to right forehead and posterior cervical area) Neck: Full Range of Motion, Normal, Normal Inspection, Other (posterior cervical area tenderness ) Respiratory: Chest Non-Tender, Lungs Clear, No Accessory Muscle Use, No Respiratory Distress, Normal Breath Sounds Cardiovascular: No Edema, No JVD, No Murmur, No Gallop, Normal Peripheral Pulses, Regular Rate/Rhythm Breast Exam: Deferred Gastrointestinal: No Organomegaly, Non Tender, No Pulsatile Mass, Normal Bowel Sounds, Soft Genitalia: Deferred Pelvic: Deferred Rectal: Deferred Extremities: No calf tenderness, Normal capillary refill, Normal inspection, Normal range of motion, Non-tender, No pedal edema Musculoskeletal : Location: Right Apperance: Normal Neurologic: Alert, 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 Was a procedure done?: No Differential Dx Considerations may include: fractures, dislocations, contusions, bruising, closed head injury, among others X-Ray, Labs, Meds, VS Vital Signs Date Time Temp Pulse Resp B/P (MAP) Pulse Ox O2 Delivery O2 Flow Rate FiO2 02/12/25 22:21 98.0 64 18 126/58 (80) 92 98.0 02/12/25 20:13 66 16 98 Room Air* 0 21 02/12/25 20:09 98.6 71 20 131/57 (81) 90 98.6 02/12/25 19:30 98.7 89 16 144/66 (92) 99 98.7 [facility] [id number] [facility] [id number] Ph: [phone] DIAGNOSTIC IMAGING Diagnostic Imaging Report : [id number] Signed PATIENT: ROSS BACK ACCT: [id number] UNIT: [id number] : 1940 LOC: ER ROOM / BED: / AGE / SEX: 84 / M ADM STATUS: REG ER SERVICE 44 ORDERING PHYSICIAN: FANY NEAL MD PROCEDURE(s): HWOCT - HEAD WITHOUT CONTRAST REASON: pain injury fall ORDER NUMBER(s): [id number], ACCESSION NUMBER(s): [id number] EXAM: CT HEAD WITHOUT CONTRAST INDICATION: pain injury fall TECHNIQUE: CT of the head without intravenous contrast. Radiation Dose Information: CT Dose: CTDI volume is 55.99 mGy. Dose-length product is 1103.39 mGy*cm The dose indicators for CT are the volume Computed Tomography (CT) Dose Index (CTDIvol) and the Dose Length Product (DLP), and are measured in units of mGy and mGy-cm, respectively. These indicators are not patient dose, but values generated from the CT scanner acquisition factors. The report includes radiation exposure data for exposures received during this examination. COMPARISON: CT HEAD WITHOUT CONTRAST on DOS: 01/16/25, CT HEAD WITHOUT CONTRAST on DOS: 07/20/24 FINDINGS: There is no evidence of acute intracranial hemorrhage, extra-axial collection, mass effect, midline shift, herniation or hydrocephalus. The ventricles, sulci and cisterns are age appropriate. The zuñiga-white differentiation is intact. Patchy periventricular and subcortical white matter hypoattenuation is nonspecific but may be related to small vessel ischemic disease. The visualized paranasal sinuses and mastoid air cells are clear. Soft tissue swelling over the mid right parietal skull. No fracture no intracranial hemorrhage. IMPRESSION: 1. No acute intracranial abnormality. Stable chronic right mastoid disease. 2. Soft tissue swelling over the mid right parietal skull. No fracture no intracranial hemorrhage. ATED BY: ALEXIS RIVERA Jr., DO DICTATED DATE/TIME: 02/12/252105 SIGNED BY: ALEXIS RIVERA Jr., SIGNED DATE/TIME: 02/12/252105 CC: [place] [id number] Ph: [phone] DIAGNOSTIC IMAGING Diagnostic Imaging Report : [id number] Signed PATIENT: ROSS BACK ACCT: [id number] UNIT: [id number] : 1940 LOC: ER ROOM / BED: / AGE / SEX: 84 / M ADM STATUS: REG ER SERVICE 44 ORDERING PHYSICIAN: FANY NEAL MD PROCEDURE(s): CS2 - CERVICAL WITHOUT CONTRAST REASON: pain injury fall ORDER NUMBER(s): [id number], ACCESSION NUMBER(s): [id number] EXAM: CT CERVICAL WITHOUT CONTRAST INDICATION: pain injury fall EXAM DATE: 02/12/2025 08:26 PM COMPARISON: None TECHNIQUE: Multiple axial CT images of the cervical spine were obtained using bone algorithm. Axial and coronal reformatting was done. Bone and soft tissue windows were reviewed. Radiation Dose Information: CT Dose: CTDI volume is 21.65 mGy. Dose-length product is 537.01 mGy*cm FINDINGS: [id number]-cyghlyi cervical type vertebrae. Straightening of the cervical lordosis. The vertebral body heights are relatively maintained. Multilevel moderate to severe degenerative changes of the cervical spine. Nuchal ligament calcification is noted. No evidence of acute traumatic fractures or spondylolisthesis. Partial opacification of the right mastoid. Partially imaged right IJ approach central venous catheter. IMPRESSION: No evidence of acute cervical spine fracture or traumatic malalignment. All CT scans at this medical facility are performed using dose modulation techniques as appropriate to a performed exam including the following: Automated exposure control was utilized; adjustment of the MA and/or KV according to patient size; and use of iterative reconstruction technique. ATED BY: SONALI LOMBARDI DO DICTATED DATE/TIME: 02/12/252128 SIGNED BY: SONALI LOMBARDI DO SIGNED DATE/TIME: 02/12/252128 CC: Time of 1ST Reevaluation: 20:00 Reevaluation 1ST: Unchanged Patient Education/Counseling: Diagnosis Family Education/Counseling: No Family Present Departure 1 Departure Time of Disposition: 22:00 Impression: Primary Impression: Acute neck sprain Additional Impressions: End stage renal failure on dialysis Head injury Disposition: HOME / SELF CARE / HOMELESS Condition: Stable Discharged With: Self Critical Care Note Critical Care Time?: No Stability Stability form required: No Heart Score Heart Score: Heart Score Response (Comments) Value History N/A 0 EKG N/A 0 Age N/A 0 Risk Factors N/A 0 Troponin N/A 0 Total 0 I personally scribed for FANY NEAL MD ([email or web address]) on 02/12/25 at 20:01. Electronically submitted by Ross Sen ([email or web address]). I personally scribed for FANY NEAL MD ([email or web address]) on 02/12/25 at 21:50. Electronically submitted by Ross Sen [email or web address]). FANY NEAL MD Feb 12, 2025 20:01
[2025-02-12 20:13] VITALS: PULSE 66; RESP 16; O2SAT 98
--- NOTE | 2025-02-12 21:09 | DVH ---
EXAM: CT HEAD WITHOUT CONTRAST INDICATION: pain injury fall TECHNIQUE: CT of the head without intravenous contrast. Radiation Dose Information: CT Dose: CTDI volume is 55.99 mGy. Dose-length product is 1103.39 mGy*cm The dose indicators for CT are the volume Computed Tomography (CT) Dose Index (CTDIvol) and the Dose Length Product (DLP), and are measured in units of mGy and mGy-cm, respectively. These indicators are not patient dose, but values generated from the CT scanner acquisition factors. The report includes radiation exposure data for exposures received during this examination. COMPARISON: CT HEAD WITHOUT CONTRAST on DOS: 01/16/25, CT HEAD WITHOUT CONTRAST on DOS: 07/20/24 FINDINGS: There is no evidence of acute intracranial hemorrhage, extra-axial collection, mass effect, midline s hift, herniation or hydrocephalus. The ventricles, sulci and cisterns are age appropriate. The zuñiga-white differentiation is intact. Patchy periventricular and subcortical white matter hypoattenuation is nonspecific but may be related to small vessel ischemic disease. The visualized paranasal sinuses and mastoid air cells are clear. Soft tissue swelling over the mid right parietal skull. No fracture no intracranial hemorrhage. IMPRESSION: 1. No acute intracranial abnormality. Stable chronic right mastoid disease. 2. Soft tissue swelling over the mid right parietal skull. No fracture no intracranial hemorrhage.
--- NOTE | 2025-02-12 21:32 | DVH ---
EXAM: CT CERVICAL WITHOUT CONTRAST INDICATION: pain injury fall EXAM DATE: 02/12/2025 08:26 PM COMPARISON: None TECHNIQUE: Multiple axial CT images of the cervical spine were obtained using bone algorithm. Axial a nd coronal reformatting was done. Bone and soft tissue windows were reviewed. Radiation Dose Information: CT Dose: CTDI volume is 21.65 mGy. Dose-length product is 537.01 mGy*cm FINDINGS: [id number]-[id number] cervical type vertebrae. Straightening of the cervical lordosis. The vertebral body heights are relatively maintained. Multilevel moderate to severe degenerative changes of the cervical spine. Nuchal ligament calcification is noted. No evidence of acute traumatic fractures or spondylolisthesis. Partial opacification of the right mas toid. Partially imaged right IJ approach central venous catheter. IMPRESSION: No evidence of acute cervical spine fracture or traumatic malalignment. All CT scans at this medical facility are performed using dose modulation techniques as appropriate t o a performed exam including the following: Automated exposure control was utilized; adjustment of th e MA and/or KV according to patient size; and use of iterative reconstruction technique.
[2025-02-13 02:10] VITALS: TEMP 98
[2025-02-13 06:00] VITALS: BP 128/55; PULSE 82; RESP 16; O2SAT 98
== END 2025-02-12 21:52 | disposition home or self-care (01) ==
LOC: ER 19:30 → EDBD 19:30 → ER 21:52
DX: S13.8XXA Sprain of joints and ligaments of other parts of neck, initial encounter (principal); S09.8XXA Other specified injuries of head, initial encounter; I12.0 Hypertensive chronic kidney disease with stage 5 chronic kidney disease or end stage renal disease; N18.6 End stage renal disease; I48.91 Unspecified atrial fibrillation; E78.5 Hyperlipidemia, unspecified; Z79.899 Other long term (current) drug therapy; Z99.2 Dependence on renal dialysis; Z98.890 Other specified postprocedural states; W01.0XXA Fall on same level from slipping, tripping and stumbling without subsequent striking against object, initial encounter; Y93.89 Activity, other specified; Y92.89 Other specified places as the place of occurrence of the external cause; Y99.8 Other external cause status
CPT/HCPCS: 70450; 72125

== ENCOUNTER 2025-02-22 02:56 | Inpatient (IN) | payer MEDICARE, OTHER ==
[~2025-02-22] VITALS: Ht 177.8 cm; Wt 60.0 kg
--- NOTE | 2025-02-22 03:15 | ED.PDOC ---
History of Present Illness HPI Comments 84 y/o M is MICHELLE from [facility] assisted [facility] for ALOC. Per EMS report, patient is, normally, altered at baseline but was noticed by faculty at facility to have been less arousable than usual, this morning. He was noted to have diminished lung sounds in lower lobes and a SpO2 of 83%, with a GCS of 14 and A&Ox2. No further associated symptoms endorsed. Further history is limited due to patients current condition and absence of production machine tender/family historians. Time Seen by MD: 02:50 Reviewed Notes: Nurses Notes, Leather Etcher Notes, Medications, Allergies Allergies: Coded Allergies: NO KNOWN ALLERGIES (Unverified , 04/27/18) Home Meds Active Scripts Cefpodoxime Proxetil (Cefpodoxime Proxetil) 200 Mg Tab, 1 TAB PO BID for 3 Days, #6 TAB Prov:MANISH ESPARZADEBORAH BUSBY RESIDENT 07/25/24 Azithromycin (ZITHROMAX TABLET) 250 Mg Tb, 250 MG PO DAILY for 5 Days, #5 TAB Prov:DEBORAH CARRASCO RESIDENT 07/25/24 Reported Medications Omeprazole Magnesium (Acid Flight Paramedic) 20 Mg Tab, 40 01/15/25 Sevelamer Carbonate (Sevelamer Carbonate) 800 Mg Tab, TAB PO 01/15/25 Metoprolol Succinate (Metoprolol Succinate Er) 25 Mg Tab, 1 TAB PO DAILY 01/15/25 Apixaban Base (ELIQUIS) 2.5 Mg Tab, 1 TAB PO BID 01/15/25 Tamsulosin Hcl (Tamsulosin Hcl) 0.4 Mg Cap, CAP PO 01/15/25 Finasteride (Finasteride) 5 Mg Tab, 1 TAB PO DAILY 01/15/25 Simvastatin (Simvastatin) 20 Mg Tab, 1 TAB PO 01/15/25 Information Source: Emergency Med Personnel Mode of Arrival: EMS Severity: Moderate Timing: Hours Duration: Since onset Prehospital treatment: 12 Lead EKG, Accucheck, Food Science Professor, Oxygen (nonrebreather ) Past Medical History PAST MEDICAL HISTORY: AFIB, Anemia, Anxiety, Cancer, ESRD, High Lipids, HTN Past Medical History (Other): Pleural effusion Pneumonia BPH Surgical History: Denies all surgeries Family History Family History: Reviewed,noncontributory to illness, Unknown Social History Smoker: Non-Smoker Alcohol: Occasionally Drugs: Denies Drug Use Lives In: Home All Other Systems: Reviewed and Negative (Comprehensive systems review obtained and negative except for what is stated in the HPI.) Physical Exam General Appearance: No Apparent Distress, Normal HEENT: Normal ENT Inspection, Pharynx Normal, TMs Normal Neck: Full Range of Motion, Non-Tender, Normal, Normal Inspection Respiratory: Chest Non-Tender, Lungs Clear, No Accessory Muscle Use, No Respiratory Distress, Normal Breath Sounds, Other (on nonrebreather ) Cardiovascular: No Edema, No JVD, No Murmur, No Gallop, Normal Peripheral Pul ses, Regular Rate/Rhythm Breast Exam: Deferred Gastrointestinal: No Organomegaly, Non Tender, No Pulsatile Mass, Normal Bowel Sounds, Soft Genitalia: Deferred Pelvic: Deferred Rectal: Deferred Extremities: No calf tenderness, Normal capillary refill, Normal inspection, Normal range of motion, Non-tender, No pedal edema Musculoskeletal : Apperance: Normal Neurologic: ammonia print operator II-XII nml as Tested, No Motor Deficits, No Sensory Deficits, Other (Altered) Cerebellar Function: Normal Reflexes: Normal Skin: Dry, Normal Color, Warm Lymphatic: No Adenopathy Was a procedure done? Was a procedure done?: No Differential Dx Considerations may include: encephalopathy, viral syndrome, electrolyte imbalance, dehydration, among others X-Ray, Labs, Meds, VS Vital Signs Date Time Temp Pulse Resp B/P (MAP) Pulse Ox O2 Delivery O2 Flow Rate FiO2 02/22/25 04:06 175 16 175/77 (109) 93 02/22/25 03:35 98 14 172/81 (111) 92 02/22/25 03:02 97.6 95 16 166/82 (110) 96 97.6 02/22/25 03:01 95 Lab Test 02/22/25 04:38 02/22/25 03:29 Range/Units Urine Color Light-yellow Yellow Urine Clarity Clear Clear Urine pH 8.5 5.0-9.0 Urine Specific [place] 1.010 1.001-1.035 Urine Protein 3+ H Negative Urine Ketones Negative Negative Urine Blood 2+ H Negative /uL Urine Nitrite Negative Negative Urine Bilirubin Negative Negative Urine Urobilinogen Normal Negative mg/dL Urine Leukocyte Esterase Negative Negative /uL Urine RBC 119 0 - 3 /hpf Urine Microscopic WBC 6 H 0-3 /HPF Urine Squamous Epithelial Cells Few <5 /hpf Urine Bacteria None seen None Seen /hpf Urine Glucose 1+ H Normal mg/dL White Blood Count 6.5 4.4-10.8 10^3/uL Red Blood Count 3.74 L 4.5-5.90 10^6/uL Hemoglobin 12.5 L 13.5-17.5 g/dL Hematocrit 36.9 L 41.0-53.0 % Mean Corpuscular Volume 98.5 80.0-100.0 fL Mean Corpuscular Hemoglobin 33.3 H 28.0-32.0 pg Mean Corpuscular Hemoglobin Concent 33.8 32.0-36.0 g/dL Red Cell Distribution Width 15.8 H 11.8-14.3 % Platelet Count 277 140-450 10^3/uL Mean Platelet Volume 6.5 L 6.9-10.8 fL Neutrophils (%) (Auto) 72.6 37.0-80.0 % Lymphocytes (%) (Auto) 14.0 10.0-50.0 % Monocytes (%) (Auto) 11.2 0.0-12.0 % Eosinophils (%) (Auto) 1.4 0.0-7.0 % Basophils (%) (Auto) 0.8 0.0-2.0 % Neutrophils # (Auto) 4.7 1.6-8.6 10 ^3/uL Lymphocytes # (Auto) 0.9 0.4-5.4 10 ^3/uL Monocytes # (Auto) 0.7 0-1.3 10 ^3/uL Eosinophils # (Auto) 0.1 0-0.8 10 ^3/uL Basophils # (Auto) 0 0-0.2 10 ^3/uL Nucleated Red Blood Cells 0.1 % Sodium Level 136 136-145 mmol/L Potassium Level 4.5 3.5-5.1 mmol/L Chloride Level 95 L 98-107 mmol/L Carbon Dioxide Level 29 20-31 mmol/L Anion Gap 12 5-15 Blood Urea Nitrogen 42 H 9-23 mg/dL Creatinine 6.37 H 0.700-1.30 mg/dL Glomerular Filtration Rate Calc 8 >90 mL/min BUN/Creatinine Ratio 6.6 L 10.0-20.0 Serum Glucose 93 74-106 mg/dL Lactic Acid Level 0.7 0.4-2.0 mmol/L Calcium Level 9.5 8.7-10.4 mg/dL Troponin I High Sensitivity 31 </=54 ng/L [facility] [id number] [place] [id number] Ph: [phone] DIAGNOSTIC IMAGING Diagnostic Imaging Report : [id number] Signed PATIENT: ROSS BACK ACCT: [id number] UNIT: [id number] : 1940 LOC: ER ROOM / BED: / AGE / SEX: 84 / M ADM STATUS: REG ER SERVICE 030 ORDERING PHYSICIAN: PETERSON DOSHI MD PROCEDURE(s): CXRP - CHEST PORTABLE REASON: ams ORDER NUMBER(s): [id number], ACCESSION NUMBER(s): [id number] EXAM: XY CHEST PORTABLE HISTORY: ams COMPARISON: XY CHEST PORTABLE on DOS: 01/17/25, XY CHEST PORTABLE on DOS: 01/15/25, XY CHEST XRAY 1 VIEW on DOS: 07/23/24, XY CHEST XRAY 1 VIEW on DOS: 07/21/24, XY CHEST PORTABLE on DOS: 07/20/24 TECHNIQUE: Portable upright AP view of the chest was performed. FINDINGS: Right chest tunneled dialysis catheter is re-identified. There is a new moderate to large right pleural effusion. There is diffuse interstitial prominence. No pneumothorax. The heart is enlarged. The aortic arch is calcific. IMPRESSION: 1. New moderate to large right pleural effusion. 2. Cardiomegaly and diffuse interstitial prominence suggestive of CHF. ATED BY: LESLY WILLINGHAM MD DICTATED DATE/TIME: 02/22/25451 SIGNED BY: LESLY WILLINGHAM MD SIGNED DATE/TIME: 02/22/25451 CC: Time of 1ST Reevaluation: 03:10 Reevaluation 1ST: Unchanged Patient Education/Counseling: Other (patient is altered ) Family Education/Counseling: No Family Present Additional Information Previous visits reviewed: February 12, 2025 for fall. The following tests were ordered, and results were reviewed by me: EKG, troponin, CXR, UA, blood culture, lactic acid w/reflex, CBC, BMP Additional Information was gathered from interviewing the following independent historians:EMS I reviewed and agreed with the following test results read by other providers: CXR I discussed treatment and results with medical personnel SEPSIS Sepsis Screen Physician Orders Blood Culture (02/22/25 03:03) Chest Portable (02/22/25 03:03) Troponin-I Hs (02/22/25 04:03) Troponin-I Hs (02/22/25 06:03) Cefepime 2gm/50ml Ns (Maxipime 2gm/50ml) (02/22/25 05:30) Vancomycin 1gm/200ml Pm (02/22/25 05:30) Furosemide Injection (Lasix Injection) (02/22/25 05:30) Vital Signs Date Time Temp Pulse Resp B/P (MAP) Pulse Ox O2 Delivery O2 Flow Rate FiO2 02/22/25 04:06 175 16 175/77 (109) 93 02/22/25 03:35 98 14 172/81 (111) 92 02/22/25 03:02 97.6 95 16 166/82 (110) 96 97.6 02/22/25 03:01 95 Laboratory Tests Test 02/22/25 03:29 Lactic Acid Level 0.7 mmol/L (0.4-2.0) White Blood Count 6.5 10^3/uL (4.4-10.8) Departure 1 Departure Time of Disposition: 05:30 (Patient with a worsening encephalopathy, worsening volume overload, new pleural effusion. Empirically cover patient with antibiotics we will not give the patient a fluid boluses patient likely volume overloaded. We will admit patient for further workup and expert consultation) Impression: Primary Impression: Metabolic encephalopathy Additional Impressions: Acute on chronic systolic heart failure Pleural effusion Disposition: ADMITTED INPATIENT Admit to: Med Surg Condition: Serious Critical Care Note Critical Care Time?: Yes Critical care comment: Acute shortness of breath Authorized and Performed by: Peterson Doshi MD Total critical care time: Approximately 42 minutes Due to a high probability of clinically significant, life threatening deterioration, the patient required my highest level of preparedness to intervene emergently and I personally spent this critical care time directly and personally managing the patient. This critical care time included obtaining a history; examining the patient; pulse oximetry; ordering and review of studies; arranging urgent treatment with development of a management plan; evaluation of patient's response to treatment; frequent reassessment; and, discussions with other providers. This critical care time was performed to assess and manage the high probability of imminent, life-threatening deterioration that could result in multi-organ failure. It was exclusive of separately billable procedures and treating other patients and teaching time. Please see my other sections and the rest of the note for further information on patient assessment and treatment. Stability Stability form required: No Heart Score Heart Score: Heart Score Response (Comments) Value History N/A 0 EKG N/A 0 Age N/A 0 Risk Factors N/A 0 Troponin N/A 0 Total 0 I personally scribed for PETERSON DOSHI MD ([email or web address]) on 02/22/25 at 03:15. Electronically submitted by Ross Sen ([email or web address]). I personally scribed for PETERSON DOSHI MD ([email or web address]) on 02/22/25 at 05:18. Electronically submitted by Ross Sen ([email or web address]). PETERSON DOSHI MD Feb 22, 2025 03:15
--- NOTE | 2025-02-22 03:49 | ECG ---
[facility] Test Date: 2025-02-22 Test Time: 03:01:59 Pat Name: SADIE BACK Department: ED Room: 0240 Gender: M Irrigator Gravity Flow: JORGE : 1940 Requested By: PETERSON DOSHI Order Number: [id number] Reading MD: Arcenio Garcia Measurements Intervals [place] Rate: 95 P: 0 DC: 0 QRS: 175 QRSD: 96 T: 37 QT: 384 QTc: 483 Interpretive Statements Atrial fibrillation Consider right ventricular hypertrophy Probable anteroseptal infarct, old Electronically Signed On 02-22-2025 22:57:07 PDT by Arcenio Garcia Please click the below link to view image of tracing.
[2025-02-22 03:50] LABS: Potassium 4.5 mmol/L (3.5-5.1)
[2025-02-22 03:51] LABS: Anion Gap 12 (5-15); Calcium 9.5 mg/dL (8.7-10.4); Carbon Dioxide 29 mmol/L (20-31)
[2025-02-22 03:55] LABS: Basophils # (auto) 0 10 ^3/uL (0-0.2); Basophils % (auto) 0.8 % (0.0-2.0); Eosinophils # (auto) 0.1 10 ^3/uL (0-0.8); Eosinophils % (auto) 1.4 % (0.0-7.0); Hematocrit 36.9 % (41.0-53.0); Hemoglobin 12.5 g/dL (13.5-17.5); Lymphocytes # (auto) 0.9 10 ^3/uL (0.4-5.4); Mean Corpuscular Hemoglobin 33.3 pg (28.0-32.0); Mean Corpuscular Hgb Conc. 33.8 g/dL (32.0-36.0); Mean Corpuscular Volume 98.5 fL (80.0-100.0); Monocytes # (auto) 0.7 10 ^3/uL (0-1.3); Monocytes % (auto) 11.2 % (0.0-12.0); Neutrophils # (auto) 4.7 10 ^3/uL (1.6-8.6); Neutrophils % (auto) 72.6 % (37.0-80.0); Nucleated Red Blood Cells % 0.1 %; Platelet Count (auto) 277 10^3/uL (140-450); Red Blood Cells 3.74 10^6/uL (4.5-5.90); Red Cell Distribution Width 15.8 % (11.8-14.3); White Blood Cell 6.5 10^3/uL (4.4-10.8)
[2025-02-22 03:56] LABS: BUN/Creatinine Ratio 6.6 (10.0-20.0); Glucose 93 mg/dL (74-106)
[2025-02-22 03:57] LABS: Blood Urea Nitrogen 42 mg/dL (9-23); Chloride 95 mmol/L (98-107); Sodium 136 mmol/L (136-145)
[2025-02-22 04:47] LABS: Urine Bacteria None Seen /hpf (None Seen)
--- NOTE | 2025-02-22 04:54 | DVH ---
EXAM: XY CHEST PORTABLE HISTORY: ams COMPARISON: XY CHEST PORTABLE on DOS: 01/17/25, XY CHEST PORTABLE on DOS: 01/15/25, XY CHEST XRAY 1 VIE W on DOS: 07/23/24, XY CHEST XRAY 1 VIEW on DOS: 07/21/24, XY CHEST PORTABLE on DOS: 07/20/24 TECHNIQUE: Portable upright AP view of the chest was performed. FINDINGS: Right chest tunneled dialysis catheter is re-identified. There is a new moderate to large right pleu ral effusion. There is diffuse interstitial prominence. No pneumothorax. The heart is enlarged. The aortic arch is calcific. IMPRESSION: 1. New moderate to large right pleural effusion. 2. Cardiomegaly and diffuse interstitial prominence suggestive of CHF.
[2025-02-22 04:58] LABS: Urine Blood 2+ /uL (Negative); Urine Clarity Clear (Clear); Urine Color Light-Yellow (Yellow); Urine Protein, UAD 3+ (Negative); Urine Squamous Epithelial Cell FEW /hpf (<5); Urine Urobilinogen Normal (Negative); Urine WBC 6 /HPF (0-3); Urine pH 8.5 (5.0-9.0)
[2025-02-22] MEDS: CEFEPIME 2GM/50ML NS 50 ML IV ONE (05:30)
[2025-02-22] MEDS: VANCOMYCIN 1GM/200ML PM 200 ML IV ONE (05:37)
[2025-02-22] MEDS: FUROSEMIDE 40 MG/4 ML VIAL IV ONE (05:38)
[2025-02-22] MEDS ORDERED: ONDANSETRON HCL 4 MG/2 ML VIAL IV PRN (08:45)
[2025-02-22] MEDS ORDERED: ACETAMINOPHEN 325 MG TAB PO PRN (08:45)
[2025-02-22] MEDS ORDERED: DOCUSATE SOD 100 MG CAP PO PRN (08:45)
[2025-02-22] MEDS ORDERED: IPRATROPIUM BROM 0.5 MG/2.5ML INH SOL NEB PRN (08:45)
[2025-02-22] MEDS ORDERED: ALBUTEROL SULF 2.5 MG/0.5ML(0.5%) NEB SOLN NEB PRN (08:45)
[2025-02-22 08:50] VITALS: O2SAT 95
--- NOTE | 2025-02-22 09:08 | DVHHP2 ---
History of Present Illness Reason for Visit: ALOC History of Present Illness Ross Davenport is an 84-year-old male with past medical history of CHF, hypertension, hyperlipemia, atrial fibrillation, ESRD on HD, anxiety, and dementia, who was brought to the hospital by EMS for ALOC. Patient was recently admitted here for similar complaints and then discharged to [facility]. The staff noticed this morning the patient was more altered then normal, and that his oxygenation was in the low 80's on room air and called EMS. On assessment the patient was alert and oriented x 1. He could tell me his name, but not able to answer any further questions or follow commands. He is currently on 10L oxygen via mask. Cardiovascular: AFIB, CHF, HTN, hyperipidemia TRACK LABORER: Dementia Psych: Anxiety Renal/: Chronic renal failure (on HD) Smoke: No ALCOHOL: none Drugs: None Lives: Senior Living Domestic Violence: Neg Review of Systems Constitutional: No: Fever, Chills, Sweats, Weakness, Malaise, Other Eyes: No: Pain, Vision change, Conjunctivae inflammation, Eyelid inflammation, Other, Redness ENT: No: Ear pain, Ear discharge, Nose pain, Nose discharge, Nose congestion, Mouth pain, Mouth swelling, Throat pain, Throat swelling, Other Respiratory: No: Cough, Dry, Shortness of breath, SOB with excertion, Wheezing, Hemoptysis, Pleuritic Pain, Sputum, Wheezing, Other Cardiovascular: No: Chest Pain, Palpitations, Orthopnea, Paroxysmal Noc. Dyspnea, Edema, Lt Headedness, Other Gastrointestinal: No: Nausea, Vomiting, Abdominal Pain, Diarrhea, Constipation, Melena, Hematochezia, Other Genitourinary: No Dysuria, No Frequency, No Incontinence, No Hematuria, No Retention, No Other Musculoskeletal: No: other, neck pain, shoulder pain, arm pain, back pain, hand pain, leg pain, foot pain Skin: No: Rash, Lesions, Jaundice, Bruising, Other Neurological: Weakness, Incoordination, Confusion; No: Numbness, Change in s peech, Seizures, Other Allergies: Coded Allergies: NO KNOWN ALLERGIES (Unverified , 04/27/18) Exam Vital Signs Vital Signs Date Time Temp Pulse Resp B/P (MAP) Pulse Ox O2 Delivery O2 Flow Rate FiO2 02/22/25 08:00 Simple Mask* 10 99 02/22/25 08:00 98.3 93 25 169/79 (109) 97 98.3 General Appearance: Alert, moderate distress, Other (Oriented x 1, not following comands, unable to answer questions, pulled out IV) HEENT: Atraumatic, PERRLA Respiratory: Other (Diminshed breath sounds, worse on the right, absent right lower lobe) Cardiovascular: Regular rate, Normal S1, Normal S2 Abdominal: Normal bowel sounds, Soft, No tenderness Extremities: No clubbing, No cyanosis, No edema, Normal pulses, No tenderness/swelling Skin: No rashes, No breakdown, No significant lesion Psych/Mental Status: Other (Altered) Labs/Xrays Labs Test 02/22/25 06:32 02/22/25 04:38 02/22/25 03:29 Range/Units Troponin I High Sensitivity 29 </=54 ng/L Urine Color Light-yellow Yellow Urine Clarity Clear Clear Urine pH 8.5 5.0-9.0 Urine Specific [place] 1.010 1.001-1.035 Urine Protein 3+ H Negative Urine Ketones Negative Negative Urine Blood 2+ H Negative /uL Urine Nitrite Negative Negative Urine Bilirubin Negative Negative Urine Urobilinogen Normal Negative mg/dL Urine Leukocyte Esterase Negative Negative /uL Urine RBC 119 0 - 3 /hpf Urine Microscopic WBC 6 H 0-3 /HPF Urine Squamous Epithelial Cells Few <5 /hpf Urine Bacteria None seen None Seen /hpf Urine Glucose 1+ H Normal mg/dL White Blood Count 6.5 4.4-10.8 10^3/uL Red Blood Count 3.74 L 4.5-5.90 10^6/uL Hemoglobin 12.5 L 13.5-17.5 g/dL Hematocrit 36.9 L 41.0-53.0 % Mean Corpuscular Volume 98.5 80.0-100.0 fL Mean Corpuscular Hemoglobin 33.3 H 28.0-32.0 pg Mean Corpuscular Hemoglobin Concent 33.8 32.0-36.0 g/dL Red Cell Distribution Width 15.8 H 11.8-14.3 % Platelet Count 277 140-450 10^3/uL Mean Platelet Volume 6.5 L 6.9-10.8 fL Neutrophils (%) (Auto) 72.6 37.0-80.0 % Lymphocytes (%) (Auto) 14.0 10.0-50.0 % Monocytes (%) (Auto) 11.2 0.0-12.0 % Eosinophils (%) (Auto) 1.4 0.0-7.0 % Basophils (%) (Auto) 0.8 0.0-2.0 % Neutrophils # (Auto) 4.7 1.6-8.6 10 ^3/uL Lymphocytes # (Auto) 0.9 0.4-5.4 10 ^3/uL Monocytes # (Auto) 0.7 0-1.3 10 ^3/uL Eosinophils # (Auto) 0.1 0-0.8 10 ^3/uL Basophils # (Auto) 0 0-0.2 10 ^3/uL Nucleated Red Blood Cells 0.1 % Sodium Level 136 136-145 mmol/L Potassium Level 4.5 3.5-5.1 mmol/L Chloride Level 95 L 98-107 mmol/L Carbon Dioxide Level 29 20-31 mmol/L Anion Gap 12 5-15 Blood Urea Nitrogen 42 H 9-23 mg/dL Creatinine 6.37 H 0.700-1.30 mg/dL Glomerular Filtration Rate Calc 8 >90 mL/min BUN/Creatinine Ratio 6.6 L 10.0-20.0 Serum Glucose 93 74-106 mg/dL Lactic Acid Level 0.7 0.4-2.0 mmol/L Calcium Level 9.5 8.7-10.4 mg/dL EXAM: XY CHEST PORTABLE FINDINGS: Right chest tunneled dialysis catheter is re-identified. There is a new moderate to large right pleural effusion. There is diffuse interstitial prominence. No pneumothorax. The heart is enlarged. The aortic arch is calcific. IMPRESSION: 1. New moderate to large right pleural effusion. 2. Cardiomegaly and diffuse interstitial prominence suggestive of CHF. Assessment/Plan Assessment/Plan Assessment: Acute on chronic systolic heart failure, Pleural effusion, Acute hypoxic respiratory distress, Metabolic encephalopathy, ESRD on HD, Atrial fibrillation, Hypertension, Hyperlipidemia, Plan: Admit to Med-Surg, Nephrology consult, IR consult for possible thoracentesis, IV antibiotics, Fluid restriction, Fall precautions, Supplemental oxygen as needed, Breathing treatments as needed, Physical therapy evaluation, Home medications reconciled, Plan discussed with: Patient My Orders Orders - MADALYN MEAD NEONATAL CRITICAL CARE NURSE Procedure Category Date Status Time [facility] 02/22/25 Logged 08:31 * Radiologist Consult CONS 02/22/25 Transmitted 08:31 *Dr. Wendi Guevara -Da CONS 02/22/25 Transmitted Erica 08:34 Admit ADMIT 02/22/25 Transmitted 08:34 Code Status CODE 02/22/25 Transmitted 08:34 Renal DIET 02/22/25 Transmitted Standard(2gna,3gk,Lopho) Breakfast Sodium Chloride Lock PHA 02/22/25 Transmitted (Saline Lock Ns) 14:00 Hydrocodone-Acet PHA 02/22/25 Transmitted 5/325mg Tab (Ringoes 08:45 Ondansetron Hcl PHA 02/22/25 Transmitted (Zofran) 08:45 Docusate Sodium PHA 02/22/25 Transmitted Capsule (Colace 08:45 Fall Risk Precautions YRIS 02/22/[address] 08:34 Complete Blood Count LAB 02/23/25 Verified 04:00 Comprehensive LAB 02/23/25 Verified Metabolic Panel 04:00 Condition: Serious YRIS 02/22/25 Transmitted 08:34 Acetaminophen Tablet PHA 02/22/25 Transmitted (Tylenol Tablet) 08:45 Apixaban (Eliquis) PHA 02/22/25 Transmitted 10:00 Finasteride Tablet PHA 02/22/25 Transmitted (Proscar Tablet) 10:00 Tamsulosin PHA 02/22/25 Transmitted Hydrochloride (Flomax) 10:00 (Nf) Metoprolol PHA 02/22/25 Verified Succinate (Metoprolol 10:00 Sevelamer (Renagel) PHA 02/22/25 Verified 12:00 Atorvastatin (Lipitor) PHA 02/22/25 Verified 22:00 Date of Service: Feb 22, 2025 Billing Provider: MADALYN MEAD Common Visit Codes: [id number] INP/OBS CARE (MOD) MADALYN MEAD Feb 22, 2025 09:08
[2025-02-22 09:11] VITALS: BP 169/79; PULSE 93; RESP 16; TEMP 98.3; O2SAT 95
[2025-02-22] MEDS ORDERED: VANCOMYCIN PER PHARMACY 0 MG IV SCH (09:15)
[2025-02-22 09:23] LABS: INR 1.11 (0.9-1.15); Partial Thromboplastin Time 38.2 SEC (24.5-34.5); Prothrombin Time 11.6 sec (9.3-11.8)
--- NOTE | 2025-02-22 09:50 | DVH ---
Exam: US CHEST ULTRASOUND Clinical History: FLUID CHECK FOR POSSIBLE THORACENTESIS Comparison: US CHEST ULTRASOUND on DOS: 01/17/25, US CHEST ULTRASOUND on DOS: 07/20/24 Technique: Targeted sonographic evaluation of the soft tissues of the chest was obtained utilizing grayscale an d color Doppler imaging. Findings/Impression: Moderate right and small to moderate left pleural effusion.
[2025-02-22] MEDS: FINASTERIDE 5 MG TAB PO SCH (10:14)
[2025-02-22] MEDS: METOPROLOL SUCCINATE XL 50 MG TAB PO SCH (10:15)
[2025-02-22] MEDS: CEFEPIME 1GM/ 50ML 50 ML IV SCH (10:15)
[2025-02-22] MEDS: APIXABAN 2.5 MG TAB PO SCH (10:15)
--- NOTE | 2025-02-22 12:40 | DVH ---
XY CHEST PORTABLE, HISTORY: post thoro COMPARISON: XY CHEST PORTABLE on DOS: 02/22/25, XY CHEST PORTABLE on DOS: 01/17/25, XY CHEST PORTABLE o n DOS: 01/15/25 XY CHEST PORTABLE on DOS: 02/22/25, XY CHEST PORTABLE on DOS: 01/17/25, XY CHEST PORTABLE on DOS: TECHNICAL DATA: 1 view of the chest was obtained. FINDINGS: Lines and tubes: A TD catheter is seen. Cardiomediastinal silhouette: Prominent Pulmonary vasculature: Prominent Lung expansion: Lung airspace: Patchy bibasilar opacities. Lung interstitium: Prominent Pleura: Small left pleural effusion. Pneumothorax: no Bones: Unremarkable Other: no IMPRESSION: Patchy bibasilar opacities. No pneumothorax seen. Small left pleural effusion.
[2025-02-22] MEDS: SEVELAMER 800 MG TAB PO SCH (13:51)
--- NOTE | 2025-02-22 13:59 | DVH ---
US THORACENTESIS, HISTORY: THORA PROCEDURE: Informed consent was obtained. The patient was seated on the bed. A limited localization u ltrasound of the right thorax was obtained, and the optimal approach was marked on the skin. The area was prepped with chlorhexidine which was allowed to dry and draped in the usual sterile fashion. Juan e out was performed. The skin and the soft tissues were infiltrated with 1% lidocaine. A 5.5 Estonian c entesis needle catheter was advanced into right pleural space. Following aspiration of fluid, the cat heter was advanced and the needle removed. About 1500 cc of fluid was drained. No immediate complica tion was identified. FINDINGS: Large right pleural effusion. Aspirated fluid is clear and serous. IMPRESSION: Right thoracentesis with 1.5L removed.
[2025-02-22] MEDS: SODIUM CHLOR 0.9% PF (SALINE LOCK) 10ML VIAL/SYR IV SCH (14:04)
[2025-02-22 15:01] LABS: Body Fluid Red Blood Cells 154 CUMM (0-2000); Body Fluid White Blood Cells 182 CUMM (0-200)
--- NOTE | 2025-02-22 17:50 | DVHINCON2 ---
Date of service: Feb 22, [address] Alcantar Reason for Consultation dialysis History of Present Illness 84 Y/O M with history of ESRD on HD via Rt IJ TC, HTN,HLD, CHF, Afib, and dementia was sent from [facility] for AMS, and hypoxia. dialysis schedule is TTS at [facility]. last dialysis was on 02/19/25 at [facility]. patient was placed on supplemental oxygen, and SBP is in 160-170s mmHg. Patient has mod Rt and mild left pleural effusion. he is s/p Rt thoracentesis. Nephrology consulted for dialysis Past Medical History ESRD, HTN,HLD, CHF, Afib, and dementia Past Surgical History TC placement Allergies: Coded Allergies: NO KNOWN ALLERGIES (Unverified , 04/27/18) Home Meds Active Scripts Cefpodoxime Proxetil (Cefpodoxime Proxetil) 200 Mg Tab, 1 TAB PO BID for 3 Days, #6 TAB Prov:DEBORAH CARRASCO RESIDENT 07/25/24 Reported Medications Omeprazole Magnesium (Acid Design Quality Engineer) 20 Mg Tab, 40 01/15/25 Sevelamer Carbonate (Sevelamer Carbonate) 800 Mg Tab, TAB PO 01/15/25 Metoprolol Succinate (Metoprolol Succinate Er) 25 Mg Tab, 1 TAB PO DAILY 01/15/25 Apixaban Base (ELIQUIS) 2.5 Mg Tab, 1 TAB PO BID 01/15/25 Tamsulosin Hcl (Tamsulosin Hcl) 0.4 Mg Cap, CAP PO 01/15/25 Finasteride (Finasteride) 5 Mg Tab, 1 TAB PO DAILY 01/15/25 Simvastatin (Simvastatin) 20 Mg Tab, 1 TAB PO 01/15/25 Discontinued Scripts Azithromycin (ZITHROMAX TABLET) 250 Mg Tb, 250 MG PO DAILY for 5 Days, #5 TAB Prov:DEBORAH CARRASCO RESIDENT 07/25/24 Current Medications Current Medications Medications (Trade) Dose Ordered Sig/Zeferino Route PRN Reason Start Time Stop Time Status Last Admin Sodium Chloride (Saline Lock Ns) 10 ml Q8HR IV 02/22/25 14:00 02/22/25 14:04 Acetaminophen/ Hydrocodone Bitart ([place] 5/325MG Tab) 1 tab Q4HP PRN PO MODERATE PAIN (4-6 PAIN SCALE) 02/22/25 08:45 Ondansetron HCl (Zofran) 4 mg Q4HP PRN IV NAUSEA / VOMITING 02/22/25 08:45 Docusate Sodium (Colace Capsule) 100 mg BIDPRN PRN PO FOR CONSTIPATION 02/22/25 08:45 Acetaminophen (Tylenol Tablet) 650 mg Q6HP PRN PO PAIN SCALE 1-3 OR TEMP>100.4 02/22/25 08:45 Apixaban (Eliquis) 2.5 mg BID PO 02/22/25 10:00 02/22/25 10:15 Finasteride (Proscar Tablet) 5 mg DAILY PO 02/22/25 10:00 02/22/25 10:14 Tamsulosin HCl (Flomax) 0.4 mg QPM PO 02/22/25 18:00 Metoprolol Succinate (Toprol Xl) 25 mg DAILY PO 02/22/25 10:00 02/22/25 10:15 Sevelamer HCl (Renagel) 800 mg TIDWM PO 02/22/25 12:00 02/22/25 13:51 Atorvastatin Calcium (Lipitor) 10 mg HS PO 02/22/25 22:00 Ipratropium Breaks (Atrovent Medneb) 0.5 mg Q4HPRN PRN NEB SHORTNESS OF BREATH 02/22/25 08:45 Albuterol (Ventolin Medneb) 2.5 mg Q4HPRN PRN NEB SHORTNESS OF BREATH 02/22/25 08:45 Vancomycin HCl 0 ml @ 0 mls/hr UD IV 02/22/25 09:15 Cefepime HCl 50 ml @ 12.5 mls/hr Q12HR IV 02/22/25 10:00 02/23/25 01:59 02/22/25 10:15 Cefepime HCl 50 ml @ 12.5 mls/hr HS IV 02/23/25 22:00 Family History: Patient reports no known family medical history. Review of Systems as per HPi, all other systems were reviewed and are negative H&P Exam Vital Signs/I&O Vital Sign Date Time Temp Pulse Resp B/P (MAP) Pulse Ox O2 Delivery O2 Flow Rate FiO2 02/22/25 19:29 16 Simple Mask* 10 99 02/22/25 18:00 94 02/22/25 18:00 105 170/79 (109) 02/22/25 09:11 98.3 98.3 Physical Exam Gen: NAD, frail HEENT: NC, AT lungs:crackles lungs Cardiac: RRR, no murmur Abd: soft, no distention Ext: no edema + RT IJ TC Labs/Diagnostic Data Labs/Diagnostic Data Laboratory Tests Test 02/22/25 12:30 02/22/25 08:40 02/22/25 06:32 02/22/25 04:38 Range/Units Body Fluid Source Pleural fluid Body Fluid pH 8.0 Body Fluid WBC (Manual) 182 0-200 CUMM Body Fluid RBC (Manual) 154 0-2000 CUMM Body Fluid Mononuclear Cells 95 % Body Fluid Polymorphonuclear Cells 5 0-25 % Prothrombin Time 11.6 9.3-11.8 sec Prothrombin Time INR 1.11 0.9-1.15 Activated Partial Thromboplast Time 38.2 H 24.5-34.5 SEC Troponin I High Sensitivity 30 29 </=54 ng/L Urine Color Light-yellow Yellow Urine Clarity Clear Clear Urine pH 8.5 5.0-9.0 Urine Specific [place] 1.010 1.001-1.035 Urine Protein 3+ H Negative Urine Ketones Negative Negative Urine Blood 2+ H Negative /uL Urine Nitrite Negative Negative Urine Bilirubin Negative Negative Urine Urobilinogen Normal Negative mg/dL Urine Leukocyte Esterase Negative Negative /uL Urine RBC 119 0 - 3 /hpf Urine Microscopic WBC 6 H 0-3 /HPF Urine Squamous Epithelial Cells Few <5 /hpf Urine Bacteria None seen None Seen /hpf Urine Glucose 1+ H Normal mg/dL Test 02/22/25 03:29 Range/Units White Blood Count 6.5 4.4-10.8 10^3/uL Red Blood Count 3.74 L 4.5-5.90 10^6/uL Hemoglobin 12.5 L 13.5-17.5 g/dL Hematocrit 36.9 L 41.0-53.0 % Mean Corpuscular Volume 98.5 80.0-100.0 fL Mean Corpuscular Hemoglobin 33.3 H 28.0-32.0 pg Mean Corpuscular Hemoglobin Concent 33.8 32.0-36.0 g/dL Red Cell Distribution Width 15.8 H 11.8-14.3 % Platelet Count 277 140-450 10^3/uL Mean Platelet Volume 6.5 L 6.9-10.8 fL Neutrophils (%) (Auto) 72.6 37.0-80.0 % Lymphocytes (%) (Auto) 14.0 10.0-50.0 % Monocytes (%) (Auto) 11.2 0.0-12.0 % Eosinophils (%) (Auto) 1.4 0.0-7.0 % Basophils (%) (Auto) 0.8 0.0-2.0 % Neutrophils # (Auto) 4.7 1.6-8.6 10 ^3/uL Lymphocytes # (Auto) 0.9 0.4-5.4 10 ^3/uL Monocytes # (Auto) 0.7 0-1.3 10 ^3/uL Eosinophils # (Auto) 0.1 0-0.8 10 ^3/uL Basophils # (Auto) 0 0-0.2 10 ^3/uL Nucleated Red Blood Cells 0.1 % Sodium Level 136 136-145 mmol/L Potassium Level 4.5 3.5-5.1 mmol/L Chloride Level 95 L 98-107 mmol/L Carbon Dioxide Level 29 20-31 mmol/L Anion Gap 12 5-15 Blood Urea Nitrogen 42 H 9-23 mg/dL Creatinine 6.37 H 0.700-1.30 mg/dL Glomerular Filtration Rate Calc 8 >90 mL/min BUN/Creatinine Ratio 6.6 L 10.0-20.0 Serum Glucose 93 74-106 mg/dL Lactic Acid Level 0.7 0.4-2.0 mmol/L Calcium Level 9.5 8.7-10.4 mg/dL Troponin I High Sensitivity 31 </=54 ng/L Assessment ESRD on HD via Rt IJ TC Rt pleural effusion s/p thoracentesis Acute hypoxic respiratory failure on supplemental oxygen Pneumonia HTN HLD acute on chronic diastolic CHF Afib Dementia Plan: HD today. goal 2.5 L UF fluid restriction no indication for NAN at this time on Apixaban continue IV antibiotics per primary team Plan discussed with: Patient, Other DINO DIAMOND MD Feb 22, 2025 17:50
[2025-02-22 18:00] VITALS: O2SAT 94
[2025-02-22] MEDS: TAMSULOSIN HYDROCHLORIDE 0.4 MG CAP PO SCH (18:00)
[2025-02-22] MEDS: SODIUM CHL 0.9% 1000 ML BAG XX ONE (18:19)
[2025-02-22 19:29] VITALS: RESP 16
[2025-02-22 21:04] VITALS: O2SAT 98
[2025-02-22] MEDS: ATORVASTATIN 20 MG TAB PO SCH (21:20)
[2025-02-22] MEDS: HYDROcodone-ACET 5/325MG TAB PO PRN (21:20)
[2025-02-22 23:35] VITALS: PULSE 111; RESP 17; O2SAT 95
[2025-02-23] VITALS (10 sets, daily range): BP systolic 109–148; BP diastolic 60–87; PULSE 82–100; RESP 16–18; TEMP 98.4–99; O2SAT 88–100
[2025-02-23] MEDS ORDERED: CARV12.544 PO (00:17)
[2025-02-23] MEDS ORDERED: TEMA30CA PO (00:17)
[2025-02-23] MEDS ORDERED: TRAM50TA2 PO (01:56)
[2025-02-23] MEDS ORDERED: LORA-1123 PO (01:56)
[2025-02-23] MEDS ORDERED: AMLO1TAB22 PO (01:56)
[2025-02-23 06:31] LABS: Basophils # (auto) 0.1 10 ^3/uL (0-0.2); Basophils % (auto) 0.7 % (0.0-2.0); Eosinophils # (auto) 0 10 ^3/uL (0-0.8); Eosinophils % (auto) 0.2 % (0.0-7.0); Hematocrit 38.6 % (41.0-53.0); Hemoglobin 13.3 g/dL (13.5-17.5); Lymphocytes # (auto) 0.8 10 ^3/uL (0.4-5.4); Lymphocytes % (auto) 9.6 % (10.0-50.0); Mean Corpuscular Hemoglobin 33.8 pg (28.0-32.0); Mean Corpuscular Hgb Conc. 34.4 g/dL (32.0-36.0); Mean Corpuscular Volume 98.3 fL (80.0-100.0); Monocytes # (auto) 0.7 10 ^3/uL (0-1.3); Neutrophils # (auto) 6.5 10 ^3/uL (1.6-8.6); Neutrophils % (auto) 80.5 % (37.0-80.0); Nucleated Red Blood Cells % 0.1 %; Platelet Count (auto) 282 10^3/uL (140-450); Red Blood Cells 3.92 10^6/uL (4.5-5.90); White Blood Cell 8.1 10^3/uL (4.4-10.8)
[2025-02-23 07:00] LABS: Alanine Aminotransferase 12 U/L (7-40); Albumin 4.1 g/dL (3.2-4.8); Alkaline Phosphatase 89 U/L (46-116); Anion Gap 12 (5-15); Aspartate Aminotransferase 21 U/L (<34); BUN/Creatinine Ratio 5.7 (10.0-20.0); Bilirubin, Total 0.6 mg/dL (0.2-1.0); Calcium 9.5 mg/dL (8.7-10.4); Carbon Dioxide 28 mmol/L (20-31); Glucose 80 mg/dL (74-106); Potassium 4.6 mmol/L (3.5-5.1); Sodium 137 mmol/L (136-145); Total Protein 7.1 g/dL (5.7-8.2)
[2025-02-23 07:01] LABS: Blood Urea Nitrogen 29 mg/dL (9-23); Chloride 97 mmol/L (98-107)
--- NOTE | 2025-02-23 10:47 | DVH ---
CHEST RADIOGRAPH Indication: POST THORA Technique: Single frontal view of the chest was obtained COMPARISON: XY CHEST PORTABLE on DOS: 02/22/25, XY CHEST PORTABLE on DOS: 02/22/25, XY CHEST PORTABLE o n DOS: 01/17/25, XY CHEST PORTABLE on DOS: 01/15/25, XY CHEST XRAY 1 VIEW on DOS: 07/23/24 FINDINGS: Lines and Tubes: Tunneled right central venous catheter in satisfactory position. Lungs: Pulmonary vascular congestion Pleura: No effusion. No pneumothorax. Cardiomediastinal contours: Unremarkable Bones: Unremarkable IMPRESSION: No appreciable pneumothorax.
[2025-02-23] MEDS: VANCOMYCIN 500mg/100mL 100 ML IV ONE (10:49)
[2025-02-23 11:04] LABS: Hepatitis A Ab IgM Negative; Hepatitis B Core IgM Negative (Negative); Hepatitis B Surface Antigen Negative (Negative); Hepatitis C Antibody Negative (Negative)
--- NOTE | 2025-02-23 11:09 | DVH ---
US THORACENTESIS, HISTORY: LT PLEURAL EFFUSION PROCEDURE: Informed consent was obtained. The patient was lying down on the bed. A limited localizati on ultrasound of the left thorax was obtained, and the optimal approach was marked on the skin. The a quintin was prepped with chlorhexidine which was allowed to dry and draped in the usual sterile fashion. Time out was performed. The skin and the soft tissues were infiltrated with 1% lidocaine. A 5.5 Frenc h centesis needle catheter was advanced into left pleural space. Following aspiration of fluid, the c atheter was advanced and the needle removed. About 700 cc of fluid was drained. No immediate complic ation was identified. FINDINGS: Small to moderate left pleural effusion. Aspirated fluid is clear and serous. IMPRESSION: Successful left thoracentesis with 0.7L removed.
[2025-02-23 13:08] LABS: Protein, Body Fluid 2.3 g/dL (.)
--- NOTE | 2025-02-23 16:24 | DVHPN2 ---
Subjective Patient denies any symptoms. Reviewed: Care Plan, H&P, Labs, Medications Changes from previous H/P or p: No Changes General: Per HPI Eyes: No Pain, No Vision change, No Conjunctivae inflammation, No Eyelid inflammation, No Other, No Redness ENT: No Ear pain, No Ear discharge, No Nose pain, No Nose discharge, No Nose congestion, No Mouth pain, No Mouth swelling, No Throat pain, No Throat swelling, No Other Cardiovascular: No Chest Pain, No Palpitations, No Orthopnea, No Paroxysmal Noc. Dyspnea, No Edema, No Lt Headedness, No Other Respiratory: No Cough, No Dry, No Shortness of breath, No SOB with excertion, No Wheezing, No Hemoptysis, No Pleuritic Pain, No Sputum, No Other Gastrointestinal: No Nausea, No Vomiting, No Abdominal Pain, No Diarrhea, No Constipation, No Melena, No Hematochezia, No Other Genitourinary: No Dysuria, No Frequency, No Incontinence, No Hematuria, No Retention, No Other Musculoskeletal: No other, No neck pain, No shoulder pain, No arm pain, No back pain, No hand pain, No leg pain, No foot pain Skin: No Rash, No Lesions, No Jaundice, No Bruising, No Other Objective Vitals Vital Signs Date Time Temp Pulse Resp B/P (MAP) Pulse Ox O2 Delivery O2 Flow Rate FiO2 02/23/25 13:00 82 17 148/64 (92) 100 02/23/25 09:05 98.8 98.8 02/23/25 08:50 Nasal Cannula* 3 32 Intake/Output Intake and Output 02/23/25 07:00 Intake Total 300.0 ml Output Total 1650 ml Balance -1350.0 ml Intake Oral 0 ml IV Total 300.0 ml Output Urine Total 150 ml Drainage Total 1500 ml General Appearance: Alert, Oriented X3, Cooperative, No acute distress HEENT: Atraumatic, PERRLA Lungs: Clear to auscultation, Normal air movement Cardiovascular: Normal S1, Normal S2 Abdomen: Normal bowel sounds, Soft, No tenderness Musculoskeletal: Normal sensory function, Normal motor function Neuro: Normal gait, Normal speech Skin: Dry, Intact Psych/Mental Status: Mental status NL, Mood NL Medications Current Medications Medications Dose Ordered Sig/Zeferino Route Start Time Stop Time Status Last Admin Dose Admin Sodium Chloride 10 ml Q8HR IV 02/22/25 14:00 02/23/25 13:49 10 ML Acetaminophen/ Hydrocodone Bitart 1 tab Q4HP PRN PO 02/22/25 08:45 02/22/25 21:20 1 TAB Ondansetron HCl 4 mg Q4HP PRN IV 02/22/25 08:45 Docusate Sodium 100 mg BIDPRN PRN PO 02/22/25 08:45 Acetaminophen 650 mg Q6HP PRN PO 02/22/25 08:45 Apixaban 2.5 mg BID PO 02/22/25 10:00 02/23/25 10:49 2.5 MG Finasteride 5 mg DAILY PO 02/22/25 10:00 02/23/25 10:49 5 MG Tamsulosin HCl 0.4 mg QPM PO 02/22/25 18:00 Metoprolol Succinate 25 mg DAILY PO 02/22/25 10:00 02/23/25 10:52 25 MG Sevelamer HCl 800 mg TIDWM PO 02/22/25 12:00 02/23/25 13:38 800 MG Atorvastatin Calcium 10 mg HS PO 02/22/25 22:00 02/22/25 21:20 10 MG Ipratropium [place] 0.5 mg Q4HPRN PRN NEB 02/22/25 08:45 Albuterol 2.5 mg Q4HPRN PRN NEB 02/22/25 08:45 Vancomycin HCl 0 ml @ 0 mls/hr UD IV 02/22/25 09:15 Cefepime HCl 50 ml @ 12.5 mls/hr HS IV 02/23/25 22:00 Laboratory Results Laboratory Tests 02/23/25 05:58 Chemistry Test 02/23/25 05:58 Albumin 4.1 g/dL (3.2-4.8) Calcium Level 9.5 mg/dL (8.7-10.4) Total Protein 7.1 g/dL (5.7-8.2) LFT Test 02/23/25 05:58 Alanine Aminotransferase (ALT) 12 U/L (7-40) Alkaline Phosphatase 89 U/L (46-116) Aspartate Amino Transferase (AST) 21 U/L (<34) Total Bilirubin 0.6 mg/dL (0.2-1.0) Urinalysis Test 02/22/25 04:38 Urine Color Light-yellow (Yellow) Urine Clarity Clear (Clear) Urine pH 8.5 (5.0-9.0) Urine Specific [place] 1.010 (1.001-1.035) Urine Protein 3+ (Negative) H Urine Ketones Negative (Negative) Urine Blood 2+ /uL (Negative) H Urine Nitrite Negative (Negative) Urine Bilirubin Negative (Negative) Urine Urobilinogen Normal mg/dL (Negative) Urine Leukocyte Esterase Negative /uL (Negative) Urine RBC 119 /hpf (0 - 3) Urine Microscopic WBC 6 /HPF (0-3) H Urine Squamous Epithelial Cells Few /hpf (<5) Urine Bacteria None seen /hpf (None Seen) Urine Glucose 1+ mg/dL (Normal) H Microbiology Microbiology Date/Time Source Procedure Growth Status 02/22/25 12:30 Pleural Fluid Gram Stain - Final Resulted 02/22/25 12:30 Pleural Fluid Body Fluid Culture - Preliminary Resulted 02/22/25 03:28 Blood Blood Culture - Preliminary NO GROWTH AFTER 24 HOURS OF INCUBATION. Resulted Labs and/or images reviewed: Labs reviewed by me, Image(s) reviewed by me Assessment/Plan Assessment/Plan Impression: -acute hypoxic respiratory failure -bilateral pleural effusions -rule out community-acquired pneumonia -metabolic encephalopathy -probable underlying dementia -end-stage renal disease -anemia of chronic disease Plan: -follow-up wean patient off of O2 by myself. Noted to have oxygen saturation of 98% on room air -bilateral thoracentesis -nephrology consultation: Patient with HD yesterday falls -continue antibiotic therapy -repeat labs and chest x-ray in a.m. Total time spent with patient discussing and formulating plan of care: 35 minutes. This medical document was created using an electronic medical record system with [employer] dictation system. Although this document has been carefully reviewed, there may still be some phonetic and typographical errors. These areas are purely typographical due to imperfections of the software programs, and do not reflect any compromise in the patient's medical care. Plan discussed with: Patient, Other (RN) My Orders Orders - KENNETH HERNANDEZ SCHEDULE PLANNING MANAGER Procedure Category Date Status Time Thoracentesis US 02/23/25 Resulted 09:51 Chest Portable XY 02/23/25 Resulted 10:14 Mrsa Screen EULALIO 02/23/25 In Process 10:44 Date of Service: Feb 23, 2025 Billing Provider: KENNETH HERNANDEZ NP Common Visit Codes: [id number] INP/OBS CARE(HIGH) KENNETH HERNANDEZ NP Feb 23, 2025 16:24
--- NOTE | 2025-02-23 16:26 | DVHPN2 ---
Progress Note - Dictate Date Seen: Feb 23, 2025 Medical Necessity Reason Pt with a Central, PICC or Fol: No Subjective no new symptoms vital signs Vital Sign Date Time Temp Pulse Resp B/P (MAP) Pulse Ox O2 Delivery O2 Flow Rate FiO2 02/23/25 13:00 82 17 148/64 (92) 100 02/23/25 09:05 98.8 98.8 02/23/25 08:50 Nasal Cannula* 3 32 Total Intake and Output 02/22/25 02/22/25 02/23/25 15:00 23:00 07:00 Intake Total 250.0 ml 50 ml Output Total 1500 ml 150 ml Balance -1250.0 ml -100 ml medications Current Medications Medications Dose Ordered Sig/Zeferino Route Start Time Stop Time Status Last Admin Dose Admin Sodium Chloride 10 ml Q8HR IV 02/22/25 14:00 02/23/25 13:49 10 ML Acetaminophen/ Hydrocodone Bitart 1 tab Q4HP PRN PO 02/22/25 08:45 02/22/25 21:20 1 TAB Ondansetron HCl 4 mg Q4HP PRN IV 02/22/25 08:45 Docusate Sodium 100 mg BIDPRN PRN PO 02/22/25 08:45 Acetaminophen 650 mg Q6HP PRN PO 02/22/25 08:45 Apixaban 2.5 mg BID PO 02/22/25 10:00 02/23/25 10:49 2.5 MG Finasteride 5 mg DAILY PO 02/22/25 10:00 02/23/25 10:49 5 MG Tamsulosin HCl 0.4 mg QPM PO 02/22/25 18:00 Metoprolol Succinate 25 mg DAILY PO 02/22/25 10:00 02/23/25 10:52 25 MG Sevelamer HCl 800 mg TIDWM PO 02/22/25 12:00 02/23/25 13:38 800 MG Atorvastatin Calcium 10 mg HS PO 02/22/25 22:00 02/22/25 21:20 10 MG Ipratropium [place] 0.5 mg Q4HPRN PRN NEB 02/22/25 08:45 Albuterol 2.5 mg Q4HPRN PRN NEB 02/22/25 08:45 Vancomycin HCl 0 ml @ 0 mls/hr UD IV 02/22/25 09:15 Cefepime HCl 50 ml @ 12.5 mls/hr HS IV 02/23/25 22:00 objective Gen: NAD, frail HEENT: NC, AT lungs:crackles lungs Cardiac: RRR, no murmur Abd: soft, no distention Ext: no edema + RT IJ TC laboratory and microbiology Laboratory Tests 02/23/25 05:58 Test 02/23/25 05:58 Range/Units Serum Glucose 80 74-106 mg/dL Assessment/Plan ESRD on HD via Rt IJ TC Rt pleural effusion s/p thoracentesis Acute hypoxic respiratory failure on supplemental oxygen Pneumonia HTN HLD acute on chronic diastolic CHF Afib Dementia Plan: s/p HD yesterday Next HD continue HD on TTS schedule fluid restriction no indication for NAN at this time on Apixaban continue IV antibiotics per primary team Plan discussed with: DINO Arita MD Feb 23, 2025 16:26
[2025-02-23] MEDS: CEFEPIME 1GM/ 50ML 50 ML IV SCH (23:03)
[2025-02-24] VITALS (11 sets, daily range): BP systolic 115–149; BP diastolic 59–64; PULSE 71–85; RESP 16–18; TEMP 97.3–97.9; O2SAT 96–100
--- NOTE | 2025-02-24 03:18 | DVH ---
CHEST RADIOGRAPH Indication: CHF Technique: Single frontal view of the chest was obtained COMPARISON: XY CHEST PORTABLE on DOS: 02/23/25, XY CHEST PORTABLE on DOS: 02/22/25, XY CHEST PORTABLE o n DOS: 02/22/25, XY CHEST PORTABLE on DOS: 01/17/25, XY CHEST PORTABLE on DOS: 01/15/25 FINDINGS: Lines and Tubes: Right PermCath is stable in position. Lungs: Stable appearing moderate right middle and lower lung zone pulmonary airspace disease. Pleura: No effusion. No pneumothorax. Cardiomediastinal contours: Stable appearing increased opacity within the left superior mediastinum. Cardiomegaly. Atherosclerotic vascular calcifications. Bones: Unremarkable IMPRESSION: 1. Stable appearing moderate right middle and lower lung zone pulmonary airspace disease. 2. Stable appearing increased opacity within the superior left mediastinum. 3. Cardiomegaly. 4. Right PermCath.
--- NOTE | 2025-02-24 06:48 | DVHPN2 ---
Progress Note - Dictate Date Seen: Feb 24, 2025 Medical Necessity Reason Pt with a Central, PICC or Fol: No Subjective no new symptoms vital signs Vital Sign Date Time Temp Pulse Resp B/P (MAP) Pulse Ox O2 Delivery O2 Flow Rate FiO2 02/24/25 05:00 97.8 85 18 149/64 (92) 98 97.8 02/23/25 22:13 Nasal Cannula* 3 32 Total Intake and Output 02/23/25 02/23/25 02/24/25 15:00 23:00 07:00 Intake Total 125 ml 430 ml Output Total 25 ml 300 ml Balance 100 ml 130 ml medications Current Medications Medications Dose Ordered Sig/Zeferino Route Start Time Stop Time Status Last Admin Dose Admin Sodium Chloride 10 ml Q8HR IV 02/22/25 14:00 02/24/25 05:53 10 ML Acetaminophen/ Hydrocodone Bitart 1 tab Q4HP PRN PO 02/22/25 08:45 02/22/25 21:20 1 TAB Ondansetron HCl 4 mg Q4HP PRN IV 02/22/25 08:45 Docusate Sodium 100 mg BIDPRN PRN PO 02/22/25 08:45 Acetaminophen 650 mg Q6HP PRN PO 02/22/25 08:45 Apixaban 2.5 mg BID PO 02/22/25 10:00 02/23/25 23:02 2.5 MG Finasteride 5 mg DAILY PO 02/22/25 10:00 02/23/25 10:49 5 MG Tamsulosin HCl 0.4 mg QPM PO 02/22/25 18:00 02/23/25 18:14 0.4 MG Metoprolol Succinate 25 mg DAILY PO 02/22/25 10:00 02/23/25 10:52 25 MG Sevelamer HCl 800 mg TIDWM PO 02/22/25 12:00 02/23/25 18:14 800 MG Atorvastatin Calcium 10 mg HS PO 02/22/25 22:00 02/23/25 23:02 10 MG Ipratropium [place] 0.5 mg Q4HPRN PRN NEB 02/22/25 08:45 Albuterol 2.5 mg Q4HPRN PRN NEB 02/22/25 08:45 Vancomycin HCl 0 ml @ 0 mls/hr UD IV 02/22/25 09:15 Cefepime HCl 50 ml @ 12.5 mls/hr HS IV 02/23/25 22:00 02/23/25 23:03 12.5 MLS/HR objective Gen: NAD, frail HEENT: NC, AT lungs:crackles lungs Cardiac: RRR, no murmur Abd: soft, no distention Ext: no edema + RT IJ TC laboratory and microbiology Laboratory Tests 02/23/25 05:58 Test 02/23/25 05:58 Range/Units Serum Glucose 80 74-106 mg/dL Assessment/Plan ESRD on HD via Rt IJ TC Rt pleural effusion s/p thoracentesis Acute hypoxic respiratory failure, on nasal cannula Pneumonia HTN HLD acute on chronic diastolic CHF Afib Dementia Plan: Scheduled for HD for today s/p HD Friday continue HD on TTS schedule fluid restriction no indication for NAN at this time on Apixaban continue IV antibiotics per primary team Plan discussed with: Patient DINO DIAMOND MD Feb 24, 2025 06:48
[2025-02-24] MEDS ORDERED: SODIUM CHL 0.9% 1000 ML BAG XX ONE (07:00)
[2025-02-24 09:57] LABS: Basophils # (auto) 0 10 ^3/uL (0-0.2); Eosinophils # (auto) 0.1 10 ^3/uL (0-0.8); Hemoglobin 13.1 g/dL (13.5-17.5); Monocytes # (auto) 0.7 10 ^3/uL (0-1.3); Neutrophils # (auto) 4.7 10 ^3/uL (1.6-8.6); White Blood Cell 6.4 10^3/uL (4.4-10.8)
[2025-02-24 09:59] LABS: Basophils % (auto) 0.4 % (0.0-2.0); Eosinophils % (auto) 1.1 % (0.0-7.0); Hematocrit 38.7 % (41.0-53.0); Lymphocytes # (auto) 0.9 10 ^3/uL (0.4-5.4); Lymphocytes % (auto) 13.6 % (10.0-50.0); Mean Corpuscular Hemoglobin 33.1 pg (28.0-32.0); Mean Corpuscular Hgb Conc. 33.7 g/dL (32.0-36.0); Mean Corpuscular Volume 98.2 fL (80.0-100.0); Monocytes % (auto) 11.7 % (0.0-12.0); Neutrophils % (auto) 73.2 % (37.0-80.0); Nucleated Red Blood Cells % 0.1 %; Platelet Count (auto) 259 10^3/uL (140-450); Red Blood Cells 3.94 10^6/uL (4.5-5.90); Red Cell Distribution Width 15.9 % (11.8-14.3)
[2025-02-24 10:05] LABS: Chloride 99 mmol/L (98-107); Potassium 4.6 mmol/L (3.5-5.1); Sodium 140 mmol/L (136-145)
[2025-02-24 10:06] LABS: Anion Gap 13 (5-15); Carbon Dioxide 28 mmol/L (20-31)
[2025-02-24 10:12] LABS: BUN/Creatinine Ratio 6.8 (10.0-20.0); Blood Urea Nitrogen 49 mg/dL (9-23); Glucose 72 mg/dL (74-106)
--- NOTE | 2025-02-24 10:16 | DVHDS2 ---
Discharge Summary Date of Admission Feb 22, 2025 at 08:34 Date of Discharge: Feb 24, 2025 Admitting Diagnosis Acute on chronic systolic heart failure Labs/Diagnostic Data: Laboratory Results Test 02/24/25 09:30 02/23/25 05:58 02/22/25 12:30 02/22/25 08:40 White Blood Count 6.4 10^3/uL (4.4-10.8) Red Blood Count 3.94 10^6/uL (4.5-5.90) Hemoglobin 13.1 g/dL (13.5-17.5) Hematocrit 38.7 % (41.0-53.0) Mean Corpuscular Volume 98.2 fL (80.0-100.0) Mean Corpuscular Hemoglobin 33.1 pg (28.0-32.0) Mean Corpuscular Hemoglobin Concent 33.7 g/dL (32.0-36.0) Red Cell Distribution Width 15.9 % (11.8-14.3) Platelet Count 259 10^3/uL (140-450) Mean Platelet Volume 6.5 fL (6.9-10.8) Neutrophils (%) (Auto) 73.2 % (37.0-80.0) Lymphocytes (%) (Auto) 13.6 % (10.0-50.0) Monocytes (%) (Auto) 11.7 % (0.0-12.0) Eosinophils (%) (Auto) 1.1 % (0.0-7.0) Basophils (%) (Auto) 0.4 % (0.0-2.0) Neutrophils # (Auto) 4.7 10 ^3/uL (1.6-8.6) Lymphocytes # (Auto) 0.9 10 ^3/uL (0.4-5.4) Monocytes # (Auto) 0.7 10 ^3/uL (0-1.3) Eosinophils # (Auto) 0.1 10 ^3/uL (0-0.8) Basophils # (Auto) 0 10 ^3/uL (0-0.2) Nucleated Red Blood Cells 0.1 % Sodium Level 140 mmol/L (136-145) Potassium Level 4.6 mmol/L (3.5-5.1) Chloride Level 99 mmol/L (98-107) Carbon Dioxide Level 28 mmol/L (20-31) Anion Gap 13 (5-15) Blood Urea Nitrogen 49 mg/dL (9-23) Creatinine 7.25 mg/dL (0.700-1.30) Glomerular Filtration Rate Calc 7 mL/min (>90) BUN/Creatinine Ratio 6.8 (10.0-20.0) Serum Glucose 72 mg/dL (74-106) Calcium Level 10.0 mg/dL (8.7-10.4) Total Bilirubin 0.6 mg/dL (0.2-1.0) Aspartate Amino Transferase (AST) 21 U/L (<34) Alanine Aminotransferase (ALT) 12 U/L (7-40) Alkaline Phosphatase 89 U/L (46-116) Total Protein 7.1 g/dL (5.7-8.2) Albumin 4.1 g/dL (3.2-4.8) Body Fluid Source Pleural fluid Body Fluid pH 8.0 Body Fluid WBC (Manual) 182 CUMM (0-200) Body Fluid RBC (Manual) 154 CUMM (0-2000) Body Fluid Mononuclear Cells 95 % Body Fluid Polymorphonuclear Cells 5 % (0-25) Body Fluid Glucose 103 mg/dL (.) Body Fluid Total Protein 2.3 g/dL (.) Body Fluid Lactate Dehydrogenase 71 IU/L (.) Prothrombin Time 11.6 sec (9.3-11.8) Prothrombin Time INR 1.11 (0.9-1.15) Activated Partial Thromboplast Time 38.2 SEC (24.5-34.5) Troponin I High Sensitivity 30 ng/L (</=54) Test 02/22/25 04:38 02/22/25 03:29 Urine Color Light-yellow (Yellow) Urine Clarity Clear (Clear) Urine pH 8.5 (5.0-9.0) Urine Specific [place] 1.010 (1.001-1.035) Urine Protein 3+ (Negative) Urine Ketones Negative (Negative) Urine Blood 2+ /uL (Negative) Urine Nitrite Negative (Negative) Urine Bilirubin Negative (Negative) Urine Urobilinogen Normal mg/dL (Negative) Urine Leukocyte Esterase Negative /uL (Negative) Urine RBC 119 /hpf (0 - 3) Urine Microscopic WBC 6 /HPF (0-3) Urine Squamous Epithelial Cells Few /hpf (<5) Urine Bacteria None seen /hpf (None Seen) Urine Glucose 1+ mg/dL (Normal) Lactic Acid Level 0.7 mmol/L (0.4-2.0) Hepatitis A IgM Antibody Negative Hepatitis B Surface Antigen Negative (Negative) Hepatitis B Core IgM Antibody Negative (Negative) Hepatitis C Antibody Negative (Negative) Other Laboratory Tests 02/24/25 09:30 Brief Hx & Hospital Course: History of Present Illness Ross Davenport is an 84-year-old male with past medical history of CHF, hypertension, hyperlipemia, atrial fibrillation, ESRD on HD, anxiety, and dementia, who was brought to the hospital by EMS for ALOC. Patient was recently admitted here for similar complaints and then discharged to [facility]. The staff noticed this morning the patient was more altered then normal, and that his oxygenation was in the low 80's on room air and called EMS. On assessment the patient was alert and oriented x 1. He could tell me his name, but not able to answer any further questions or follow commands. He is currently on 10L oxygen via mask. Course of hospitalization: Patient received bilateral thoracentesis. Patient was received hemodialysis in the hospital. Patient was has been O2 supplementation which has been weaned off. Patient was saturation is 98% on room air. Neurologically, the patient was more alert, able to follow commands. Patient was receive hemodialysis, to be discharged thereafter he will continue all previous home medications and follow up with his PCP in two weeks Physical examination General: Alert and Oriented x3. No acute distress. Well-nourished. Eyes: EOMI. Anicteric. HENT: Moist mucous membranes. Lungs: Clear to auscultation bilaterally. No accessory muscle use. Cardiovascular: Regular rate and rhythm. No murmur. No JVD. Abdomen: Soft, non-tender and non-distended. No palpable masses. Extremities: No edema. Non-tender. Skin: No rashes or lesions. Warm. Neurologic: No focal neurological deficits. CN II-XII grossly intact, but not individually tested. Psychiatric: Cooperative. Appropriate mood and affect. Total time spent with patient discussing and formulating plan of care: 35 minutes. This medical document was created using an electronic medical record system with [employer] system. Although this document has been carefully reviewed, there may still be some phonetic and typographical errors. These areas are purely typographical due to imperfections of the software programs, and do not reflect any compromise in the patient's medical care. Condition at Discharge: Fair Final Diagnosis/Problems List Acute hypoxic respiratory failure -bilateral pleural effusions -rule out community-acquired pneumonia -metabolic encephalopathy -probable underlying dementia -end-stage renal disease -anemia of chronic disease -acute on chronic systolic heart failure Discharge Disposition: Home Discharge Instruct/Medications Diet: Cardiac 2g Na,low cholest, Renal Activity: No Restrictions, As Tolerated Follow Up/Referral: Follow up with PCP and weeks Continue with hemodialysis chair time Medications: Continue home medications 36 Discharge Statement: "Patient was advised to return to the ER or call 911 if any headaches, dizziness, shortness of breath, chest pain, abdominal pain, bleeding, fevers, or worsening of medical condition. Patient was counseled about treatment plan, medications, possible side effects, patientverbalized understanding. All questions were answered to the best of my ability. This discharge took greater then 30 minutes in planning, reviewing documentation, counseling the patient, and discussing with other team members." ASSESSMENT ASSESSMENT Assessment Acute hypoxic respiratory failure Date of Service: Feb 24, 2025 Billing Provider: KENNETH HERNANDEZ NP Common Visit Codes: 99879-DUZ/OBS DISCH DAY >30min KENNETH HERNANDEZ NP Feb 24, 2025 10:16
[2025-02-24] MEDS: VANCOMYCIN 500mg/100mL 100 ML IV ONE (18:12)
== END 2025-02-24 20:45 | DRG 70 ==
LOC: EDBD 02:56 → ER 02:56 → OVERFLOW 08:34 → EAST 22:00
PROVIDERS: ADMIT Nurse Practitioner Acute Care; ATTEND Nurse Practitioner Acute Care
PROC: 0W993ZZ Drainage of Right Pleural Cavity, Percutaneous Approach (ICD-10-PCS; principal; 2025-02-22)
PROC: 5A1D70Z Performance of Urinary Filtration, Intermittent, Less than 6 Hours Per Day (ICD-10-PCS; 2025-02-22)
PROC: 0W9B3ZZ Drainage of Left Pleural Cavity, Percutaneous Approach (ICD-10-PCS; 2025-02-23)
DX: G93.41 Metabolic encephalopathy (principal); I50.43 Acute on chronic combined systolic (congestive) and diastolic (congestive) heart failure; J18.9 Pneumonia, unspecified organism; J96.01 Acute respiratory failure with hypoxia; N18.6 End stage renal disease; F03.94 Unspecified dementia, unspecified severity, with anxiety; I13.2 Hypertensive heart and chronic kidney disease with heart failure and with stage 5 chronic kidney disease, or end stage renal disease; J91.8 Pleural effusion in other conditions classified elsewhere; E78.5 Hyperlipidemia, unspecified; I48.91 Unspecified atrial fibrillation; D63.8 Anemia in other chronic diseases classified elsewhere; N40.0 Benign prostatic hyperplasia without lower urinary tract symptoms; Z51.5 Encounter for palliative care; Z99.2 Dependence on renal dialysis
CPT/HCPCS: 36415; 71045; 76604; 76942; 80048; 80053; 80074; 80202; 81001; 83605; 83986; 84484; 85025; 85610; 85730; 87040; 87081; 87205; 89051; 90935; 93005; 96365; 97110; 97116; 97530; 99291; G0378; J0692; J1642